=== PATIENT | female | born 1950 | race Two or more races ===

== ENCOUNTER 2020-04-17 12:26 | Outpatient (REF) | payer MEDICARE, SELFPAY ==
[2020-04-17 14:22] LABS: Estimated Average Glucose 163 mg/dL; Hemoglobin A1c % 7.3 %
[2020-04-17 14:49] LABS: Alanine Aminotransferase 45 U/L (0-31); Albumin Level 4.1 g/dL (3.5-5.0); Alkaline Phosphatase 57 U/L (39-117); Anion Gap 14 (12-20); Aspartate Amino Transferase 55 U/L (5-31); Bilirubin Total 0.9 mg/dL (0.0-1.0); Blood Urea Nitrogen 14 mg/dL (9-16); Calcium 8.8 mg/dL (8.4-10.2); Carbon Dioxide 28 mmol/L (22-29); Chloride 101 mmol/L (96-108); Estimated Glomerular Filt Rate > 60; Glucose Random 164 mg/dL (60-115); Potassium 4.7 mmol/l (3.3-5.1); Sodium 138 mmol/L (135-145); Total Protein 7.3 g/dL (6.5-8.0)
== END 2020-04-17 12:27 | disposition home or self-care (01) ==
LOC: HO.HMGCLDS 12:26
PROVIDERS: PCP Internal Medicine; Visit Provider Internal Medicine
DX: Z00.01 Encounter for general adult medical examination with abnormal findings (principal); I10 Essential (primary) hypertension; J45.41 Moderate persistent asthma with (acute) exacerbation; E11.9 Type 2 diabetes mellitus without complications; E78.2 Mixed hyperlipidemia
CPT/HCPCS: 80053; 83036

== ENCOUNTER → 2020-09-24 08:56 | Outpatient (BNVA) | payer MEDICARE, SELFPAY | PROVIDERS: PCP Internal Medicine; Visit Provider Nurse Practitioner Family | DX: I48.0 Paroxysmal atrial fibrillation (principal); I10 Essential (primary) hypertension; Z79.899 Other long term (current) drug therapy | CPT/HCPCS: 93005; 99212 ==

== ENCOUNTER 2020-10-29 09:29 | Outpatient (REF) | payer MEDICARE, SELFPAY ==
[2020-10-29 11:04] LABS: MANUAL DIFF FLAG NO
[2020-10-29 11:33] LABS: Basophils Percent Auto 0.6 % (0-2); Eosinophils Absolute Auto 0.1 X10*3/uL (0.0-0.4); Hematocrit 38.3 % (37-47); Hemoglobin 12.2 g/dl (12.0-16.0); Imm Gran Abs Auto 0.02 X10*3/uL (0.00-0.03); Imm Gran Pct Auto 0.4 % (0.0-0.4); Lymphocytes Absolute Auto 1.1 X10*3/uL (1.2-4.9); Lymphocytes Percent Auto 20.6 % (20-40); Mean Corpuscular HGB Conc 31.9 g/dl (31.0-35.0); Mean Corpuscular Hemoglobin 29.3 pg (27.0-33.0); Mean Corpuscular Volume 92.1 fL (80-98); Mean Platelet Volume 11.6 fL (9.4-12.3); Monocytes Absolute Auto 0.3 X10*3/uL (0.1-1.2); Monocytes Percent Auto 5.6 % (2-11); Neutrophils Absolute Auto 3.8 X10*3/uL (2.0-8.3); Neutrophils Percent Auto 70.8 % (45-73); Platelet Count 131 X10*3/uL (160-400); Red Blood Count 4.16 X10*6/uL (4.20-5.50); Red Cell Distribution Width 13.4 % (11.0-16.0); White Blood Count 5.4 X10*3/uL (4.8-10.8)
[2020-10-29 11:46] LABS: Alanine Aminotransferase 53 U/L (0-31); Alkaline Phosphatase 63 U/L (39-117); Anion Gap 15 (12-20); Aspartate Amino Transferase 71 U/L (5-31); Bilirubin Total 0.9 mg/dL (0.0-1.0); Blood Urea Nitrogen 15 mg/dL (9-16); Calcium 8.8 mg/dL (8.4-10.2); Carbon Dioxide 22 mmol/L (22-29); Chloride 103 mmol/L (96-108); Cholesterol 156 mg/dL; Estimated Glomerular Filt Rate > 60; Glucose Fasting 173 mg/dL (60-99); HDL Cholesterol 51 mg/dL; LDL Cholesterol Calculated 86 mg/dl; Potassium 4.4 mmol/L (3.3-5.1); Sodium 136 mmol/L (135-145); Total Protein 7.5 g/dL (6.5-8.0); Triglycerides 97 mg/dL
[2020-10-29 11:54] LABS: Estimated Average Glucose 194 mg/dL; Hemoglobin A1c % 8.4 %
[2020-10-29 12:03] LABS: Creatinine Urine 149.74 mg/dL; Microalbum/Creatinine Ratio Ur 8.6 ug/mg cr
[2020-10-29 12:08] LABS: TSH reflex Free T4 1.54 uIU/mL (0.32-4.0)
== END 2020-10-29 09:30 | disposition home or self-care (01) ==
LOC: HO.HMGCLDS 09:29
PROVIDERS: PCP Internal Medicine; Visit Provider Internal Medicine
DX: Z00.01 Encounter for general adult medical examination with abnormal findings (principal); E13.9 Other specified diabetes mellitus without complications; E78.9 Disorder of lipoprotein metabolism, unspecified; F41.1 Generalized anxiety disorder; I10 Essential (primary) hypertension; J45.909 Unspecified asthma, uncomplicated
CPT/HCPCS: 36415; 80053; 80061; 82043; 83036; 84443; 85025

== ENCOUNTER 2020-11-13 10:21 | Outpatient (REF) | payer MEDICARE, SELFPAY ==
--- NOTE | ~2020-11-13 | MM_ITS ---
EXAMINATION: MM SCREENING DIGITAL BREAST TOMOSYNTHESIS, BILATERAL CLINICAL INFORMATION: Screening. Asymptomatic. The lifetime risk of breast cancer based on the Tyrer-Cuzick Model is 3%. COMPARISON: Mammography: 06/22/2019, 04/21/2016 TECHNIQUE: Digital breast tomosynthesis is performed in both the craniocaudal and mediolateral oblique views along with computer-aided detection (CAD). Synthesized 2D images are generated from the tomosynthesis. Additional right MLO view is provided. FINDINGS: The breasts are almost entirely fatty (ACR BI-RADS breast composition Category a). There are no significant masses, abnormal calcifications, or other abnormalities. Background stromal and fibroglandular densities are stable. There are scattered benign punctate round and rim and some vascular calcifications again seen. Biopsy clip marker again noted mid upper outer right breast. The axilla are unremarkable. There are some fine deodorant artifact overlying the axilla. Skin contours are smooth. MM/MM tomosynthesis screening BI IMPRESSION: No mammographic evidence of malignancy. ASSESSMENT: BI-RADS 2: Benign RECOMMENDATION: Routine annual mammography screening. This patient's information was entered into a reminder system with a target due date for their next mammogram.
== END 2020-11-13 10:22 | disposition home or self-care (01) ==
LOC: HO.MAMMO 10:21
PROVIDERS: PCP Internal Medicine; Visit Provider Internal Medicine
DX: Z12.31 Encounter for screening mammogram for malignant neoplasm of breast (principal)
CPT/HCPCS: 77063; 77067

== ENCOUNTER 2021-03-03 10:38 | Outpatient (REF) | payer MEDICARE, SELFPAY ==
[2021-03-03 15:09] LABS: Ferritin 257 ng/mL (10-250)
[2021-03-03 15:13] LABS: C Reactive Protein 0.81 mg/dL (< or = 0.50)
[2021-03-04 04:51] LABS: HBS Num1 0.46 mIU/mL (0-7.99); HBc Num1 0.08 S/CO (0.00-0.79); Hepatitis B Core Antibody Nonreactive (Nonreactive); ~HepC Num1 0.12 S/CO (0.00-0.79); ~Hepatitis B Surface Antibody NONREACTIVE (Nonreactive); ~Hepatitis C Antibody Nonreactive (Nonreactive)
[2021-03-04 04:57] LABS: HBsAGNum1 0.15 S/CO (0.00-0.99); Hepatitis B Surface Antigen Negative (Negative)
[2021-03-04 13:36] LABS: Ceruloplasmin 32 mg/dL (18-53)
[2021-03-05 08:27] LABS: Hepatitis A Antibody IgM 0.93 Index (0-0.79); ~Hepatitis A Antibody IgM GRAYZONE (Nonreactive)
[2021-03-05 12:22] LABS: Alpha Fetoprotein 5.1 ng/mL
[2021-03-07 11:51] LABS: Mitochondrial Antibodies NEGATIVE (NEGATIVE); Smooth Muscle Antibody <20 U (<20)
[2021-03-11 19:07] LABS: FIB-ALT 45 U/L (6-29); FIB-Alpha-2-Macroglobulin 339 mg/dL (106-279); FIB-Apolipoprotein A1 158 mg/dL (101-198); FIB-GGT 92 U/L (3-65); FIB-Haptoglobin 207 mg/dL (43-212); FIB-Total Bilirubin 0.8 mg/dL (0.2-1.2); Liver Fibrosis Score 0.63; Liver Fibrosis Stage F3; Nec Inflam Act Grade A1-A2; Nec Inflam Act Score 0.36
== END 2021-03-03 10:39 | disposition home or self-care (01) ==
LOC: HO.LAB 10:38
PROVIDERS: PCP Internal Medicine; Referring Provider Internal Medicine; Visit Provider Nurse Practitioner Family
DX: R10.11 Right upper quadrant pain (principal); R79.89 Other specified abnormal findings of blood chemistry; R74.8 Abnormal levels of other serum enzymes; K58.1 Irritable bowel syndrome with constipation
CPT/HCPCS: 36415; 81596; 82105; 82390; 82728; 86140; 86255; 86256; 86704; 86706; 86709; 86803; 87340; 99202

== ENCOUNTER → 2021-03-20 12:44 | Outpatient (BNVA) | payer MEDICARE, SELFPAY | PROVIDERS: PCP Internal Medicine; Referring Provider Internal Medicine; Visit Provider Nurse Practitioner Family | DX: Z01.810 Encounter for preprocedural cardiovascular examination (principal); I48.0 Paroxysmal atrial fibrillation; I10 Essential (primary) hypertension | CPT/HCPCS: 93005; 99212 ==

== ENCOUNTER → 2021-03-31 14:22 | Outpatient (REF) | payer MEDICARE, SELFPAY ==
--- NOTE | 2021-03-31 14:24 | HM_ITS ---
Total monitoring time 3 days. Underlying rhythm sinus. Minimum heart rate 34/minute. Maximum 115/minute. Average 72/Min. Most rates between 60-100/Min. About 8.7% of time, underlying rhythm was atrial fibrillation. Longest episode 4 hours and 6 minutes. No pauses or AV blocks. Rare supraventricular ectopy. Rare ventricular ectopy with a burden of only 0.17% with no couplets or runs. Patient reports symptoms including shortness of breath, palpitations possibly from supraventricular/ventricular ectopy. MTDD
== END ==
LOC: HO.CARD 14:22
PROVIDERS: PCP Internal Medicine; Visit Provider Nurse Practitioner Family
DX: I48.0 Paroxysmal atrial fibrillation (principal)
CPT/HCPCS: 93242

== ENCOUNTER 2021-04-10 10:18 | Day surgery (SDC) | payer MEDICARE, SELFPAY ==
[2021-04-04 10:00] VITALS: BMI 37.5
--- NOTE | 2021-04-09 12:29 | HO.ANESPROP2 ---
Documented by User: Tierra Shi NP 04/09/21 12:32 HPI - Anesthesia Eval Consult details Narrative: 70yo F for Colonoscopy Cardiac cleared at low risk Xarelto for afib PMFSH Active Problems Active Problems: All Active Problems (Updated 04/04/21 @ 14:47 by Johny Adorno MD) Elevated ferritin (Acute) Encounter for general adult medical examination with abnormal findings (Acute) Colon cancer screening (Acute) Preop cardiovascular exam (Acute) Elevated liver enzymes (Acute) Paroxysmal A-fib (Acute) Asthma (Acute) Anxiety, generalized (Acute) Lipid disorder (Acute) Hypertension, essential (Acute) Diabetes 1.5, managed as type 2 (Acute) Past Medical History Medical History Anxiety, generalized Asthma Diabetes 1.5, managed as type 2 Elevated liver enzymes Hypertension, essential Lipid disorder Osteoporosis Paroxysmal A-fib Family History Family History Father No problems noted. Mother Ovarian cancer Colon cancer Surgical History Surgical History History of section History of colonoscopy History of liver biopsy Hx of breast biopsy Hx of cholecystectomy Social History Social History Housing: House Alcohol intake: never Patient Tobacco Use Status: Never used Tobacco Are you DNR?: No Advance Directives: No Advance Directives Information Provided: No (mailed info) Advance Directives on File: No Recently lost weight without trying: No Current occupational status: employed Meds Allergies Allergy/AdvReac Type Severity Reaction Status Date / Time vancomycin [VANCOMYCIN] Allergy Intermediate HIVES, Verified 04/04/21 09:57 ITCHING DEANNA Inhibitors Allergy Mild Cough Verified 04/04/21 09:57 lisinopril [LISINOPRIL] Allergy Mild COUGH Verified 04/04/21 09:57 Home Medications Medication Instructions Recorded Confirmed Last Taken Type pravastatin 20 mg tablet 20 mg PO DAILY 04/19/20 04/04/21 Unknown History cholecalciferol (vitamin D3) 25 25 mcg PO DAILY 04/04/21 04/04/21 Unknown History mcg (1,000 unit) capsule (Vitamin D3) Exam Exam Date and Time: April 09, 2021 1229 Height,Weight and Vital Signs: Height 5 ft 1 in Weight 90.265 kg Narrative Narrative: EKG 03/2021 SR, 1st degree avb, low voltage QRS, q in V3, same as prior EKG, could be related to body habitus, has good R wave progression otherwise. Rate 62 ECHO 201811/17/2018 shows EF 60-65%, grade 1 diastolic dysfunction Assessment and Plan Assessment Anesthesia Assessment: Chart Reviewed Documented by User: Dangelo Hsu MD 04/10/21 11:47 PMFSH Past Medical History Medical History Anxiety, generalized Asthma Diabetes 1.5, managed as type 2 Elevated liver enzymes Hypertension, essential Lipid disorder Osteoporosis Paroxysmal A-fib Family History Family History Father No problems noted. Mother Ovarian cancer Colon cancer Family history of problems with anesthesia: No Surgical History Surgical History History of section History of colonoscopy History of liver biopsy Hx of breast biopsy Hx of cholecystectomy History of Problems with Anesthesia: No Social History Social History Housing: House Alcohol intake: never Patient Tobacco Use Status: Never used Tobacco Are you DNR?: No Advance Directives: No Advance Directives Information Provided: No (mailed info) Advance Directives on File: No Recently lost weight without trying: No Current occupational status: employed Meds Allergies Allergy/AdvReac Type Severity Reaction Status Date / Time vancomycin [VANCOMYCIN] Allergy Intermediate HIVES, Verified 04/04/21 09:57 ITCHING DEANNA Inhibitors Allergy Mild Cough Verified 04/04/21 09:57 lisinopril [LISINOPRIL] Allergy Mild COUGH Verified 04/04/21 09:57 Home Medications Medication Instructions Recorded Confirmed Last Taken Type pravastatin 20 mg tablet 20 mg PO DAILY 04/19/20 04/04/21 Unknown History cholecalciferol (vitamin D3) 25 25 mcg PO DAILY 04/04/21 04/04/21 Unknown History mcg (1,000 unit) capsule (Vitamin D3) Exam Airway Mallampati Class: II TM Dist: >3cm Neck ROM: Full Denture: Upper Assessment and Plan Assessment Anesthesia Assessment: Anesthesia Plan Discussed Final Anesthetic Review Family History of Problems with Anesthesia: No History of Problems with Anesthesia: No NPO: Yes ASA Class: III Final Preanesthetic Review: No Changes in Pt Med Stat, Meds/Allgs Chart Reviewed, Consent Obtained/Reviewed and Anes Risks/Benef Reviewed Patient Risk: Intermediate Procedure Risk: Low Anesthetic Plan Anesthetic Plan: MAC: Disposition: Standard PACU
[2021-04-10 11:08] LABS: Glucose, Whole Blood 95 mg/dL (60-115)
[2021-04-10 11:14] VITALS: BP 108/49; PULSE 63; RESP 18; TEMP 36.8; O2SAT 97
[2021-04-10] MEDS: Lactated Ringers 1,000 ML 100 ML IVCONT (11:19)
--- NOTE | 2021-04-10 11:59 | MHC.SHP ---
Pre-Procedural Eval Section A Date of Service: 04/10/21 Section B Chief Complaint: Screening Relevant Family History (Specify if Yes): No Relevant Social History: None Present Medications: see Short Stay Collaborative assessment Medical History: Significant History (Anxiety, generalized Asthma Diabetes 1.5, managed as type 2 Elevated liver enzymes Hypertension, essential Lipid disorder Osteoporosis Paroxysmal A-fib) History of Previous Operations: Relevant previous surgery/procedure and date(s) (History of section History of colonoscopy History of liver biopsy Hx of breast biopsy Hx of cholecystectomy) Allergies: Allergies Allergy/AdvReac Type Severity Reaction Status Date / Time vancomycin [VANCOMYCIN] Allergy Intermediate HIVES, Verified 04/04/21 09:57 ITCHING DEANNA Inhibitors Allergy Mild Cough Verified 04/04/21 09:57 lisinopril [LISINOPRIL] Allergy Mild COUGH Verified 04/04/21 09:57 Review of Systems Sugical H&P ROS: Negative: Constitution, Cardiovascular, Respiratory, Neurological, Psychiatric, Hem-Onc, Allergic/Immunologic, Gastrointestinal, Genitourinary, Musculoskeletal, Integumentary, Endocrine and Eyes/Ears/Nose/Throat Exam Surgical H&P Exam: Normal: HEENT, Normal: Heart, Normal: Lungs, Normal: Extremities, Normal: Abdomen, Normal: Skin and Normal: Neurological Plan Diagnosis/Plan: Unchanged I have reviewed the history and physical and performed a pertinent physical examination on my patient. No changes have occurred unless specified.
--- NOTE | 2021-04-10 12:31 | PM.OP ---
Brief Operative Note Date of Service: 04/10/21 Pre-op diagnosis: screening colonoscopy Post-op diagnosis: same Procedure: see op note Surgeon: José Antonio Lowe MD Anesthesia: MAC Was an Rehab Director Occupational Therapist used for this Procedure?: No Estimated blood loss (mL): 0 Condition: stable Disposition: PACU
--- NOTE | 2021-04-10 12:32 | W.PM.OPN ---
Operative Note Operative Note Date of Service: 04/10/21 Narrative: Operative Information Procedure Description: Colonoscopy COLONOSCOPY Instrument: Olympus variable stiffness pediatric scope 190L Colonoscopy Monitoring: Vital signs and clinical assessment, continuous EKG monitoring, Pulse oximetry, Carbon Dioxide monitoring and blood pressure monitoring were done throughout the procedure. Colon withdrawal time was 18 minutes. Procedure: The patient was placed in the left lateral decubitis position and pre-procedure medications were administered. After a digital rectal examination of the ano-rectum, the video colonoscope was inserted into the rectum and advanced through the colon to the cecum/TI. The colonoscope was slowly withdrawn in a retrograde panoramic fashion and the colon mucosa was carefully examined including a retroflexed view of the rectum. Findings and interventions are described below. Procedure Difficulty: easy Findings: Terminal Ileum-normal Fay diverticulosis Cecum: 10 mm sessile polyp removed with cold snare Ascending Colon: x4 sessile polyps noted 8-10 mm, x2 removed with forceps and x 2 removed with cold snare In distal ascenign colon 10-15 mm lipoma noted Transverse Colon -normal Descending Colon:normal Sigmoid Colon: x 2 sessile polyps noted 10-12 mm, one removed with forceps and the other with cold snare, mucosal hypertrophy noted Rectum: Retroflexion with small internal hemorrhoids, grade I Anorectum - normal Colon preparation: [place] Bowel Preparation Scale Right colon; 3 Transverse colon: 3 Left colon; 2 (0 = Unprepared colon segment with mucosa not seen due to solid stool that cannot be cleared. 1 = Portion of mucosa of the colon segment seen, but other areas of the colon segment not well seen due to staining, residual stool and/or opaque liquid. 2 = Minor amount of residual staining, small fragments of stool and/or opaque liquid, but mucosa of colon segment seen well. 3 = Entire mucosa of colon segment seen well with no residual staining, small fragments of stool or opaque liquid) Impression and Post Procedure Diagnosis: polyps internal hemorrhoids diverticular disease lipoma Plan: High fiber diet leaflet Avoid straining at stool, epsom salts and sitz bath, anusol supps or cream Repeat Colonoscopy in 3-4 years or earlier if clinically indicated can restart xarelto in 2 days Above findings were reviewed with the patient and relevant handouts were provided if indicated.
[2021-04-10 13:24] VITALS: BP 91/35; PULSE 61; RESP 18; TEMP 36.7; O2SAT 98
[2021-04-10 13:39] VITALS: BP 116/42; PULSE 60; RESP 18; TEMP 36.6; O2SAT 96
== END 2021-04-10 14:17 | disposition home or self-care (01) ==
PROVIDERS: PCP Internal Medicine; Visit Provider Internal Medicine Gastroenterology
PROC: 0DJD8ZZ Inspection of Lower Intestinal Tract, Via Natural or Artificial Opening Endoscopic (ICD-10-PCS; CPT 45378; principal; 2021-04-10 11:50)
DX: Z12.11 Encounter for screening for malignant neoplasm of colon (principal); D12.0 Benign neoplasm of cecum; D12.2 Benign neoplasm of ascending colon; D12.5 Benign neoplasm of sigmoid colon; K57.30 Diverticulosis of large intestine without perforation or abscess without bleeding; K64.0 First degree hemorrhoids; D17.5 Benign lipomatous neoplasm of intra-abdominal organs; I10 Essential (primary) hypertension; J45.909 Unspecified asthma, uncomplicated; I48.0 Paroxysmal atrial fibrillation; E13.9 Other specified diabetes mellitus without complications; Z79.01 Long term (current) use of anticoagulants; Z79.84 Long term (current) use of oral hypoglycemic drugs; Z79.899 Other long term (current) drug therapy; Z79.51 Long term (current) use of inhaled steroids; Z88.1 Allergy status to other antibiotic agents; Z88.8 Allergy status to other drugs, medicaments and biological substances
CPT/HCPCS: 45385; 45380; 82947; 88305

== ENCOUNTER 2021-04-17 08:00 | Outpatient (REF) | payer MEDICARE, SELFPAY ==
[2021-04-17 11:42] LABS: Estimated Average Glucose 148 mg/dL; Hemoglobin A1c % 6.8 %
[2021-04-17 11:45] LABS: Alanine Aminotransferase 47 U/L (0-31); Alkaline Phosphatase 70 U/L (39-117); Anion Gap 14 (12-20); Aspartate Amino Transferase 56 U/L (5-31); Bilirubin Total 0.6 mg/dL (0.0-1.0); Blood Urea Nitrogen 13 mg/dL (9-16); Carbon Dioxide 27 mmol/L (22-29); Chloride 103 mmol/L (96-108); Cholesterol 135 mg/dL; Estimated Glomerular Filt Rate > 60; Glucose Fasting 148 mg/dL (60-99); HDL Cholesterol 43 mg/dL; LDL Cholesterol Calculated 71 mg/dl; Potassium 4.9 mmol/L (3.3-5.1); Sodium 139 mmol/L (135-145); Total Protein 7.3 g/dL (6.5-8.0); Triglycerides 105 mg/dL
[2021-04-17 12:02] LABS: Microalbum/Creatinine Ratio Ur 8.2 ug/mg cr
[2021-04-17 12:06] LABS: Ferritin 213 ng/mL (10-250)
== END 2021-04-17 08:01 | disposition home or self-care (01) ==
LOC: HO.HMGCLDS 08:00
PROVIDERS: PCP Internal Medicine; Visit Provider Internal Medicine
DX: E13.9 Other specified diabetes mellitus without complications (principal); E78.9 Disorder of lipoprotein metabolism, unspecified; F41.1 Generalized anxiety disorder; I10 Essential (primary) hypertension; J45.909 Unspecified asthma, uncomplicated; R74.8 Abnormal levels of other serum enzymes; R79.89 Other specified abnormal findings of blood chemistry
CPT/HCPCS: 36415; 80048; 80053; 80061; 81256; 82043; 82728; 83036

== ENCOUNTER → 2021-04-25 11:51 | Outpatient (BNVA) | payer MEDICARE, SELFPAY | PROVIDERS: PCP Psychiatry & Neurology Neurology; Visit Provider Nurse Practitioner Family | DX: K59.04 Chronic idiopathic constipation (principal); D36.9 Benign neoplasm, unspecified site; Z98.890 Other specified postprocedural states | CPT/HCPCS: Q3014 ==

== ENCOUNTER → 2021-08-21 15:28 | Outpatient (BNVA) | payer MEDICARE, SELFPAY | PROVIDERS: PCP Internal Medicine; Visit Provider Nurse Practitioner Family | DX: K59.04 Chronic idiopathic constipation (principal); K74.60 Unspecified cirrhosis of liver; D12.6 Benign neoplasm of colon, unspecified; E11.9 Type 2 diabetes mellitus without complications; I10 Essential (primary) hypertension; I48.0 Paroxysmal atrial fibrillation; M81.0 Age-related osteoporosis without current pathological fracture; F41.1 Generalized anxiety disorder; Z90.49 Acquired absence of other specified parts of digestive tract; Z88.1 Allergy status to other antibiotic agents; Z88.8 Allergy status to other drugs, medicaments and biological substances | CPT/HCPCS: 99212 ==

== ENCOUNTER → 2021-09-25 09:49 | Outpatient (BNVA) | payer MEDICARE, SELFPAY | PROVIDERS: PCP Internal Medicine; Referring Provider Internal Medicine; Visit Provider Internal Medicine Cardiovascular Disease | DX: I48.0 Paroxysmal atrial fibrillation (principal); I20.8 Other forms of angina pectoris; Z79.01 Long term (current) use of anticoagulants | CPT/HCPCS: 93005; 99212 ==

== ENCOUNTER → 2021-10-07 08:05 | Outpatient (REF) | payer MEDICARE, SELFPAY ==
--- NOTE | ~2021-10-07 | NM_ITS ---
Myocardial perfusion study Indication: Epigastric discomfort evaluate for myocardial ischemia Technique: The patient was brought in for a Lexiscan perfusion study on 10/07/2021. Patient performed low-level exercise and was injected 0.4 mg of Lexiscan intravenously. Within a minute of injection, 35 mCi of sestamibi was given intravenously. Images were obtained using the SPECT gamma camera interlaced with the gating device. Images were obtained in supine position. Resting perfusion study was performed on 10/09/2021. Patient was administered 35 mCi of sestamibi intravenously at rest. Images were then obtained in supine position. Images obtained with and without CT attenuation. Total DLP 130 mGy-cm. Images were processed with the software and compared side to side in short axis, horizontal long axis and vertical long axis views. Findings: The stress perfusion study showed non attenuated images show overall normal perfusion of all segments of LV myocardium with minimally reduced uptake in the basal inferior wall of the LV myocardium. Attenuation corrected images show minimally reduced uptake in the apex of the LV myocardium.. The gated study shows normal LV systolic function with calculated LVEF of 60%. LV cavity is normal in size. The gated study shows normal systolic wall thickening and contraction of segments. Resting study shows no change in perfusion pattern compared to stress perfusion study. Gating at rest reveals normal systolic wall motion with ejection fraction at 63%. The findings are consistent with normal myocardial perfusion. NM/NM branden perf SPECT rest & str Impression: 1. Myocardial perfusion imaging study shows normal myocardial perfusion 2. Gated LVEF is 60% 3. Transient ischemic dilatation not present EKG is nondiagnostic for ischemia
--- NOTE | 2021-10-07 08:07 | CA_ITS ---
Acquisition Time: 2021-10-07 08:12:13 Total Exercise Time: 00:02:00 Test Indications: AFIB, SOB Medications: SEE CHART Protocol: LEXISCAN Max HR: 085 BPM 57% of Pred: 148 BPM Max BP: 128/078 mmHG Max Work Load: 1.0 METS Pharmacological stress test with Lexiscan injection while sitting and kicking her legs for 3 min, without anginal symptoms, with isolated PACs, PVCs and brief sinus bradycardia noted ( no heart blocks identified, nonconducted PACs not excluded), with normotensive response to injection, with nondiagnostic EKG for ischemia. In recovery she was treated with Aminophylliine 75mg IVP to reverse Lexiscan. Nuclear images pending. Test reviewed with Dr Sutton. Referred By: Geoff Serra Overread By: ADELIA RUBI
== END ==
LOC: HO.CARD 08:05
PROVIDERS: PCP Internal Medicine; Visit Provider Internal Medicine Cardiovascular Disease
DX: I20.8 Other forms of angina pectoris (principal); E13.9 Other specified diabetes mellitus without complications; I10 Essential (primary) hypertension
CPT/HCPCS: 78452; 93017; A9500; J0280; J2785

== ENCOUNTER 2021-10-10 08:00 | Outpatient (REF) | payer MEDICARE, SELFPAY ==
[2021-10-10 11:10] LABS: MANUAL DIFF FLAG NO
[2021-10-10 11:32] LABS: Basophils Percent Auto 0.8 % (0-2); Eosinophils Absolute Auto 0.2 X10*3/uL (0.0-0.4); Eosinophils Percent Auto 3.3 % (0-4); Hematocrit 39.7 % (37.0-47.0); Hemoglobin 12.9 g/dl (12.0-16.0); Imm Gran Abs Auto 0.03 X10*3/uL (0.00-0.03); Imm Gran Pct Auto 0.6 % (0.0-0.4); Lymphocytes Absolute Auto 0.9 X10*3/uL (1.2-4.9); Lymphocytes Percent Auto 17.1 % (20-40); Mean Corpuscular HGB Conc 32.5 g/dl (31.0-35.0); Mean Corpuscular Hemoglobin 29.9 pg (27.0-33.0); Mean Corpuscular Volume 92.1 fL (80.0-98.0); Monocytes Absolute Auto 0.4 X10*3/uL (0.1-1.2); Monocytes Percent Auto 6.9 % (2-11); Neutrophils Absolute Auto 3.6 x10*3/uL (2.0-8.3); Neutrophils Percent Auto 71.3 % (45-73); Platelet Count 149 X10*3/uL (160-400); Red Blood Count 4.31 X10*6/uL (4.20-5.50); Red Cell Distribution Width 13.8 % (11.0-16.0); White Blood Count 5.1 X10*3/uL (4.8-10.8)
[2021-10-10 11:38] LABS: Estimated Average Glucose 171 mg/dL; Hemoglobin A1c % 7.6 %
[2021-10-10 11:57] LABS: Alanine Aminotransferase 45 U/L (0-31); Albumin Level 3.9 g/dL (3.5-5.0); Alkaline Phosphatase 71 U/L (39-117); Anion Gap 12 (12-20); Aspartate Amino Transferase 62 U/L (5-31); Bilirubin Direct 0.4 mg/dL (0.0-0.5); Blood Urea Nitrogen 13 mg/dL (9-16); Calcium 9.4 mg/dL (8.4-10.2); Carbon Dioxide 28 mmol/L (22-29); Chloride 101 mmol/L (96-108); Estimated Glomerular Filt Rate > 60; Glucose Random 182 mg/dL (60-115); Potassium 4.6 mmol/L (3.3-5.1); Sodium 136 mmol/L (135-145); Total Protein 7.2 g/dL (6.5-8.0)
[2021-10-10 12:06] LABS: Ferritin 243 ng/mL (10-250)
[2021-10-10 12:27] LABS: Creatinine Urine 177.67 mg/dL; Microalbum/Creatinine Ratio Ur 8.4 ug/mg cr
[2021-10-12 06:16] LABS: LDL Cholesterol Direct 88 mg/dL (<100)
== END 2021-10-10 08:01 | disposition home or self-care (01) ==
LOC: HO.HMGCLDS 08:00
PROVIDERS: Visit Provider Internal Medicine
DX: R79.89 Other specified abnormal findings of blood chemistry (principal); I48.0 Paroxysmal atrial fibrillation; F41.1 Generalized anxiety disorder; E78.9 Disorder of lipoprotein metabolism, unspecified; I10 Essential (primary) hypertension; E13.9 Other specified diabetes mellitus without complications; J45.40 Moderate persistent asthma, uncomplicated; Z12.11 Encounter for screening for malignant neoplasm of colon
CPT/HCPCS: 36415; 80053; 82043; 82248; 82728; 83036; 83721; 85025

== ENCOUNTER → 2021-11-13 07:07 | Outpatient (REF) | payer MEDICARE, SELFPAY ==
--- NOTE | 2021-11-13 07:10 | CA_ITS ---
Transthoracic Echocardiogram Patient (Last, First, Middle): Kellie Villanueva T Gender: Female Date of : 1950 Age: 71 Procedure Date: 11/13/2021 Procedure Type: Transthoracic Echocardiogram Location: OP Height: 152.4 cm Weight: 91.17 kg BSA: 1.87 m2 Heart Rate: bpm BP: 140 / 74 mmHg Medical Reimbursement Manager: ELADIA Referring MD: Geoff Serra MD Preventive Maintenance Engineer: Geoff Serra MD Symptoms: I48.0 - Paroxysmal atrial fibrillation Study Quality: Adequate ECG Rhythm: Sinus Conclusions: - 1. Normal LV systolic function with impaired relaxation filling pattern 2. Normal cardiac valvular Doppler 3. No gross pericardial effusion Findings Left Ventricle Normal left ventricular size, thickness, and systolic function. The visually estimated ejection fraction is between 60-65%. Spectral Doppler is indicative of an impaired relaxation filling pattern. E/E prime ratio is between 8 and 15 consistent with indeterminate filling pressures. Right Ventricle Normal right ventricular cavity size and systolic function. Atria The left atrium is normal in size. Interatrial shunt cannot be excluded. The right atrium is normal in size. Aortic Valve Normal aortic valve structure and function. There is no aortic valve stenosis. There is no aortic valve regurgitation. Mitral Valve Likely normal mitral valve structure and function. There is trace mitral valve regurgitation. There is no mitral valve stenosis. Pulmonic Valve The pulmonic valve was not well visualized. Tricuspid Valve Tricuspid regurgitation envelope is inadequate for calculation of right ventricular systolic pressure. Normal right atrial pressure. Great Vessels All visible segments of the aorta are normal in size. The pulmonary artery was not well visualized. Venous The inferior vena cava is normal in size and collapses greater than 50% with inspiration. Pericardium/Pleural There is no evidence of pericardial effusion. Prior Study Comparison No significant change compared to prior study dated: 11/17/2018. Measurements 2D Linear Measurements IVSd: 1.14 0.6-0.9/0.6-1.0 cm LVIDd: 4.32 3.9-5.3/4.2-5.9 cm LVIDd Index: 2.31 2.4-3.2/2.2-3.1 cm/m2 LVIDs: 2.34 2.0-3.6 cm LVPWd: 1.06 0.7-1.1 cm LA Diam: 4.00 2.7-3.8/3.0-4.0 cm LAIDs Index: 2.14 1.5-2.3 cm/m2 LV Mass: 204.41 67-162/88-224 g LV Mass Index: 109.31 43-95/49-115 g/m2 LVOT Diam: 2.20 3.0+(-)1.3 cm 2D Systolic Function EF 4C: 64.70 >55% EF 2C: 64.80 >55% EF BiP: 66.80 >55% Mitral Valve MV Pk E: 0.65 MV PK A: 0.91 MV Decel Time: 287.00 E/A: 0.70 E'Lateral: 7.40 E'Medial: 6.09 E/E' Med: 10.70 E/E' Lat: 8.80 PHT: 84.00 MVA PHT: 2.62 Decel Boyle: 2.27 Aortic Valve AoV Pk Dov: 1.39 AoV Mn Dov: 0.98 AoV VTI: 0.36 AoV Pk Grad: 8.00 Aov Mn Grad: 4.00 JAGJIT Cont.VTI: 2.75 LVOT LVOT Pk Dov: 0.89 LVOT Mn Dov: 0.65 LVOT VTI: 0.26 LVOT Pk Grad: 3.00 LVOT Mn Grad: 2.00 LVOT Diam: 2.20 LVOT Area: 3.80 Diastolic Function MV Pk E: 0.65 MV Pk A: 0.91 E/A: 0.70 E'Medial: 6.09 E/E' Med: 10.70 E' Laterial: 7.40 E/E' Lat: 8.80 Tricuspid Valve RA Press: 3.00 Great Vessels Aorta Sinus of Valsalva: 3.36 2.0-3.[address] [place]: 2.62 1.7-3.4 cm Ao Asc: 3.30 2.1-3.4 cm Updated in Other Vendor System with Status of Final Geoff Serra MD electronically signed on 11/14/2021 3:17:10 PM with status of Final
== END ==
LOC: HO.CARD 07:07
PROVIDERS: Visit Provider Internal Medicine Cardiovascular Disease
DX: I48.0 Paroxysmal atrial fibrillation (principal); I20.8 Other forms of angina pectoris
CPT/HCPCS: 93306

== ENCOUNTER → 2021-11-26 14:56 | Outpatient (BNVA) | payer MEDICARE, SELFPAY | PROVIDERS: PCP Internal Medicine; Referring Provider Internal Medicine; Visit Provider Nurse Practitioner Family | DX: R07.89 Other chest pain (principal); I48.0 Paroxysmal atrial fibrillation; I10 Essential (primary) hypertension; Z79.01 Long term (current) use of anticoagulants; Z79.899 Other long term (current) drug therapy | CPT/HCPCS: 99212 ==

== ENCOUNTER → 2022-02-23 16:14 | Outpatient (BNVA) | payer MEDICARE, SELFPAY | PROVIDERS: PCP Internal Medicine; Visit Provider Nurse Practitioner Family | DX: R79.89 Other specified abnormal findings of blood chemistry (principal); K59.04 Chronic idiopathic constipation | CPT/HCPCS: 99212 ==

== ENCOUNTER 2022-03-13 13:46 | Outpatient (REF) | payer MEDICARE, SELFPAY ==
--- NOTE | ~2022-03-13 | US_ITS ---
EXAMINATION: US VENOUS ULTRASOUND WITH DOPPLER LOWER EXTREMITY, LEFT CLINICAL INFORMATION: Pain and swelling COMPARISON: Duplex Doppler left lower extremity 03/27/2019 TECHNIQUE: Ultrasound of the deep veins is performed from the hip to the calf with compression sonography and color and pulse Doppler assessment. Spectral analysis with color-flow imaging is performed. FINDINGS: There is normal venous compression and respiratory variation and augmented flow. The visualized common femoral vein, superficial femoral vein, profunda femoral vein, popliteal vein, and the trifurcation region shows no evidence of deep venous thrombosis. There is no significant popliteal fossa cyst. Focused ultrasound performed in the area of swelling and redness at the mid calf. There is subcutaneous edema. No focal fluid collection or abscess. There are subcutaneous varices at the mid calf. If the patient's symptoms persist, followup ultrasound in 5 days 7 days might be of value to exclude proximal propagation from a non-visualized calf vein. US/US venous duplex LE IMPRESSION: No DVT demonstrated in the left lower extremity.
== END 2022-03-13 13:47 | disposition home or self-care (01) ==
LOC: HO.HMGCX 13:46
PROVIDERS: PCP Internal Medicine
DX: M79.662 Pain in left lower leg (principal)
CPT/HCPCS: 93971

== ENCOUNTER 2022-03-31 11:32 | Outpatient (REF) | payer MEDICARE, SELFPAY ==
[2022-03-31 14:26] LABS: Hematocrit 38.1 % (37.0-47.0); Hemoglobin 12.4 g/dl (12.0-16.0)
[2022-03-31 14:47] LABS: Estimated Average Glucose 151 mg/dL; Hemoglobin A1c % 6.9 %
[2022-03-31 14:48] LABS: Alanine Aminotransferase 32 U/L (0-31); Alkaline Phosphatase 70 U/L (39-117); Anion Gap 16 (12-20); Aspartate Amino Transferase 44 U/L (5-31); Bilirubin Direct 0.3 mg/dL (0.0-0.5); Bilirubin Total 0.8 mg/dL (0.0-1.0); Blood Urea Nitrogen 15 mg/dL (9-16); Carbon Dioxide 26 mmol/L (22-29); Chloride 104 mmol/L (96-108); Estimated Glomerular Filt Rate > 60; Glucose Random 155 mg/dL (60-115); Potassium 4.1 mmol/L (3.3-5.1); Sodium 142 mmol/L (135-145); Total Protein 7.2 g/dL (6.5-8.0)
[2022-03-31 15:09] LABS: Ferritin 223 ng/mL (10-250)
[2022-04-02 11:56] LABS: Alpha Fetoprotein 5.2 ng/mL
[2022-04-02 15:21] LABS: Ceruloplasmin 26 mg/dL (18-53)
== END 2022-03-31 11:33 | disposition home or self-care (01) ==
LOC: HO.HMGCLDS 11:32
PROVIDERS: Absent Provider Nurse Practitioner Family; PCP Internal Medicine; Visit Provider Internal Medicine
DX: E66.09 Other obesity due to excess calories (principal); E78.9 Disorder of lipoprotein metabolism, unspecified; F41.1 Generalized anxiety disorder; I10 Essential (primary) hypertension; I48.0 Paroxysmal atrial fibrillation; J45.40 Moderate persistent asthma, uncomplicated; R74.8 Abnormal levels of other serum enzymes; R10.9 Unspecified abdominal pain; R79.89 Other specified abnormal findings of blood chemistry; E13.9 Other specified diabetes mellitus without complications
CPT/HCPCS: 36415; 80053; 82043; 82105; 82248; 82390; 82728; 83036; 85014; 85018

== ENCOUNTER 2022-06-30 09:36 | Outpatient (REF) | payer MEDICARE, SELFPAY ==
--- NOTE | ~2022-06-30 | US_ITS ---
EXAMINATION: US COMPLETE ABDOMEN WITH LIVER ELASTOGRAPHY CLINICAL INFORMATION: Abnormal LFTs. COMPARISON: None. TECHNIQUE: Real-time imaging of the abdominal viscera. Noninvasive ultrasound liver fibrosis assessment is performed using Sunday ElastPQ point quantification shear wave elastography (2D-SWE) with a C5-2 MHz transducer. Multiple elastography samples are obtained. FINDINGS: PANCREAS: Normal. The visualized pancreatic head and body are normal in appearance. The remainder of the pancreas is obscured from visualization by the overlying bowel gas. ABDOMINAL AORTA: The proximal, middle, and distal aortic segments are normal in caliber. INFERIOR VENA CAVA: Visualized portions are normal. LIVER: The liver demonstrates normal size, contour and increased echogenicity. No focal lesion or intrahepatic biliary duct dilatation. The right lobe measures 20.9 cm in length. The left lobe measures 14.6 cm in length. Portal flow is hepatopedal. Shear wave liver elastography median stiffness is 1.49 m/s (reference: normal median stiffness is 1.3 m/s or less). IQR/median stiffness to assess sampling precision is 0.15 (reference: good quality data set is IQR/median stiffness of 0.15 or less). GALLBLADDER: Normal. The gallbladder is physiologically distended without evidence of stones, sludge, polyps, wall thickening or pericholecystic fluid. COMMON BILE DUCT: Normal in caliber measuring 0.21 cm in diameter. RIGHT KIDNEY: Normal. No hydronephrosis. No renal calculi or focal parenchymal lesions. The kidney measures 10.6 cm in maximum dimension. LEFT KIDNEY: Normal. No hydronephrosis. No renal calculi or focal parenchymal lesions. The kidney measures 10.8 cm in maximum dimension. SPLEEN: Normal. The spleen measures 16.8 cm in maximum dimension. There is a small splenule measuring 2.0 x 1.2 x 1.2 cm. FREE FLUID: None. US/US abdomen comp w elastography IMPRESSION: Hepatic steatosis without focal lesion. The rest of the abdominal ultrasound is unremarkable. Liver elastography: Median liver stiffness 1.49 m/s corresponding cACLD (ruled out). REFERENCE: Society of Radiologists in Ultrasound Liver Stiffness Thresholds (2019): LIVER STIFFNESS THRESHOLDS: *Liver Stiffness equal or less than 1.3 m/s: High probability of being normal. *Liver Stiffness less than 1.7 m/s: In the absence of other known clinical signs, rules out compensated advanced chronic liver disease. *Liver Stiffness 1.7-2.1 m/s: Suggestive of compensated advanced chronic liver disease but need further test for confirmation. *Liver Stiffness over 2.1 m/s: Rules in compensated advanced chronic liver disease. *Liver Stiffness over 2.4 m/s: Suggestive of clinically significant portal hypertension. QUALITY OF DATA SET: *IQR/Median value equal or less than 0.15 implies a quality data set. *IQR/Median value over 0.15 implies a poor quality data set. SIGNIFICANT CHANGE FROM PRIOR EXAM: Significant change if liver stiffness measurement is 10% or greater from prior exam. OTHER CONSIDERATIONS: The stage of liver fibrosis may be overestimated in the setting of acute hepatitis, liver inflammation, elevated liver function tests, hepatic vascular congestion, obstructive cholestasis, non-fasting state, and infiltrative diseases such as amyloidosis and lymphoma. In some patients with NAFLD, the liver stiffness thresholds for compensated advanced chronic liver disease may be lower. In causes other than viral hepatitis and NAFLD, liver stiffness thresholds are not well established.
== END 2022-06-30 09:37 | disposition home or self-care (01) ==
LOC: HO.US 09:36
PROVIDERS: PCP Internal Medicine; Visit Provider Nurse Practitioner Family
DX: R79.89 Other specified abnormal findings of blood chemistry (principal)
CPT/HCPCS: 76705; 76981

== ENCOUNTER 2022-08-28 13:38 | Outpatient (REF) | payer MEDICARE, SELFPAY ==
[2022-08-28 16:13] LABS: Appearance Urine Turbid; Color Urine Yellow; Glucose Urine UA Negative (Negative); Leukocyte Esterase Urine Trace (Negative); Nitrite Urine Negative (Negative); PH 5.5 (5.0-9.0); Specific Gravity - Urine 1.025 (1.005-1.025); UMIC TRIGGER UACC YES; Urine Blood Negative (Negative); Urine Ketones Trace mg/dL (Negative); Urine Protein Negative (Neg-Trace)
[2022-08-28 16:33] LABS: Bacteria Urine None Seen (None Seen); Calcium Oxalate Crystals Urine Present; Hyaline Casts Urine 0-2 /LPF (0-2); RBC Urine 0-2 /HPF (0-2); WBC Urine 0-5 /HPF (0-5)
[2022-08-28 16:47] LABS: Basophils Percent Auto 0.5 % (0-2); Eosinophils Absolute Auto 0.1 X10*3/uL (0.0-0.4); Eosinophils Percent Auto 2.7 % (0-4); Imm Gran Abs Auto 0.01 X10*3/uL (0.00-0.03); Imm Gran Pct Auto 0.2 % (0.0-0.4); Lymphocytes Percent Auto 23.6 % (20-40); MANUAL DIFF FLAG NO; Mean Corpuscular HGB Conc 32.5 g/dl (31.0-35.0); Mean Corpuscular Hemoglobin 29.7 pg (27.0-33.0); Mean Corpuscular Volume 91.5 fL (80.0-98.0); Mean Platelet Volume 11.6 fL (9.4-12.3); Monocytes Absolute Auto 0.3 X10*3/uL (0.1-1.2); Monocytes Percent Auto 6.4 % (2-11); Neutrophils Absolute Auto 2.9 x10*3/uL (2.0-8.3); Neutrophils Percent Auto 66.6 % (45-73); Platelet Count 151 X10*3/uL (160-400); Red Blood Count 4.37 X10*6/uL (4.20-5.50); Red Cell Distribution Width 13.8 % (11.0-16.0); White Blood Count 4.4 X10*3/uL (4.8-10.8)
[2022-08-28 16:59] LABS: Estimated Average Glucose 151 mg/dL; Hemoglobin A1c % 6.9 %
[2022-08-28 17:11] LABS: Alanine Aminotransferase 29 U/L (0-31); Albumin Level 3.9 g/dL (3.5-5.0); Alkaline Phosphatase 88 U/L (39-117); Anion Gap 11 (12-20); Aspartate Amino Transferase 33 U/L (5-31); Bilirubin Total 0.6 mg/dL (0.0-1.0); Blood Urea Nitrogen 18 mg/dL (9-16); Calcium 9.5 mg/dL (8.4-10.2); Carbon Dioxide 27 mmol/L (22-29); Chloride 105 mmol/L (96-108); Estimated Glomerular Filt Rate > 60; Glucose Random 174 mg/dL (60-115); Potassium 4.4 mmol/L (3.3-5.1); Sodium 139 mmol/L (135-145)
[2022-08-28 17:22] LABS: Ferritin 193 ng/mL (10-250)
== END 2022-08-28 13:39 | disposition home or self-care (01) ==
LOC: HO.HMGCLDS 13:38
PROVIDERS: PCP Internal Medicine; Visit Provider Internal Medicine
DX: E13.9 Other specified diabetes mellitus without complications (principal); E78.9 Disorder of lipoprotein metabolism, unspecified; F41.1 Generalized anxiety disorder; I10 Essential (primary) hypertension; I48.0 Paroxysmal atrial fibrillation; R74.8 Abnormal levels of other serum enzymes; R79.89 Other specified abnormal findings of blood chemistry
CPT/HCPCS: 36415; 80053; 81001; 82728; 83036; 85025

== ENCOUNTER → 2022-09-01 08:51 | Outpatient (BNVA) | payer MEDICARE, SELFPAY | PROVIDERS: PCP Internal Medicine; Visit Provider Nurse Practitioner Family | DX: K59.01 Slow transit constipation (principal); R74.8 Abnormal levels of other serum enzymes | CPT/HCPCS: 99212 ==

== ENCOUNTER 2022-11-23 08:01 | Outpatient (RCR) | payer MEDICARE, SELFPAY | END 2022-11-30 16:00 | disposition home or self-care (01) | LOC: HO.WCC 08:01 | PROVIDERS: PCP Internal Medicine; Visit Provider Physician Assistant | DX: E11.622 Type 2 diabetes mellitus with other skin ulcer (principal); L97.322 Non-pressure chronic ulcer of left ankle with fat layer exposed; I87.312 Chronic venous hypertension (idiopathic) with ulcer of left lower extremity; I87.2 Venous insufficiency (chronic) (peripheral); K75.81 Nonalcoholic steatohepatitis (NASH); I10 Essential (primary) hypertension | CPT/HCPCS: 11042; 99212 ==

== ENCOUNTER → 2022-11-24 09:32 | Outpatient (BNVA) | payer MEDICARE, SELFPAY | PROVIDERS: PCP Internal Medicine; Visit Provider Nurse Practitioner Family | DX: K59.04 Chronic idiopathic constipation (principal); R74.8 Abnormal levels of other serum enzymes | CPT/HCPCS: 99212 ==

== ENCOUNTER 2022-11-27 10:48 | Outpatient (REF) | payer MEDICARE, SELFPAY ==
[2022-11-27 14:11] LABS: Appearance Urine Turbid; Color Urine Yellow; Glucose Urine UA Negative (Negative); Leukocyte Esterase Urine Small (1+) (Negative); Nitrite Urine Negative (Negative); PH 5.5 (5.0-9.0); UMIC TRIGGER UACC YES; Urine Blood Negative (Negative); Urine Ketones Negative (Negative); Urine Protein Negative (Neg-Trace)
[2022-11-27 14:31] LABS: Bacteria Urine None Seen (None Seen); Hyaline Casts Urine 0-2 /LPF (0-2); RBC Urine 0-2 /HPF (0-2); UACC Culture Trigger YES; WBC Urine 0-5 /HPF (0-5)
== END 2022-11-27 10:49 | disposition home or self-care (01) ==
LOC: HO.HMGCLDS 10:48
PROVIDERS: PCP Internal Medicine; Visit Provider Internal Medicine
DX: R10.9 Unspecified abdominal pain (principal)
CPT/HCPCS: 81001; 87086

== ENCOUNTER 2023-02-16 08:29 | Outpatient (AMB) | payer MEDICARE, SELFPAY ==
--- NOTE | 2023-02-16 08:53 | A.OFFVIS_ITS ---
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 Allergies vancomycin [VANCOMYCIN] Allergy (Intermediate, Verified 02/16/23 09:04) HIVES, ITCHING DEANNA Inhibitors Allergy (Mild, Verified 02/16/23 09:04) Cough lisinopril [LISINOPRIL] Allergy (Mild, Verified 02/16/23 09:04) COUGH Medication List - Last Reconciled 02/16/23 by PABLO Palacios albuterol sulfate 90 mcg/actuation 1 - 2 puffs inhalation BID PRN 30 days alendronate 70 mg PO QWEEK blood sugar diagnostic (FreeStyle Lite Strips) patient to check blood sugar once daily or as needed blood-glucose meter (FreeStyle Lite Meter kit) Patient to check blood sugar once daily or as needed budesonide-formoterol 160-4.5 mcg/actuation (Symbicort) 2 puffs PO BID 30 days cholecalciferol (vitamin D3) (Vitamin D3) 25 mcg PO DAILY docusate sodium 100 mg PO BEDTIME escitalopram oxalate 20 mg PO DAILY 90 days glipizide 10 mg PO BID 90 days hydrochlorothiazide 25 mg PO DAILY 90 days lancets (FreeStyle Lancets) Patient to check blood sugar once daily or as needed losartan 50 mg PO DAILY montelukast 10 mg PO BEDTIME polyethylene glycol 3350 (Miralax) 17 grams PO DAILY pravastatin 20 mg PO DAILY 90 days rivaroxaban 20 mg PO DAILY HPI f/up HPI Details Kellie is a 72-year-old female with past medical history of obesity, hypertension, diabetes, paroxysmal atrial fibrillation who presents for follow- up. Today she reports she has been doing generally well since her last visit 11/26/2021. She has not had any changes to her health or hospital admissions. She has some shortness of breath at times which she relates to her asthma. She denies any chest discomfort at rest or with activity. On rare occasions she will notice heart palpitations. She does not have any heart palpitations at the time of this visit. No presyncope, syncope, PND, orthopnea or edema. She did have a fall in May when she tripped going up stairs. No significant injury, just soreness. Taking meds as directed. No bleeding issues with Xarelto. [facility] Medical History Anxiety, generalized Asthma Colon cancer screening Diabetes 1.5, managed as type 2 Elevated ferritin Elevated liver enzymes Hypertension, essential Lipid disorder Osteoporosis Pain of left calf Paroxysmal A-fib Tubular adenoma Surgical History History of section History of colonoscopy History of liver biopsy Hx of breast biopsy Hx of cholecystectomy Family History Father No problems noted. Mother Ovarian cancer Colon cancer Social History Housing: House Alcohol intake: never Patient Tobacco Use Status: Never used Tobacco e-Cigarette/Vaping Use: Never Used service: No Current occupational status: employed Cognitive needs: No Hearing needs: No Vision needs: Yes Review of Systems Const All systems reviewed & are unremarkable except as noted in HPI and below ENT Denies dizziness Card Details: No change to shortness of breath, chronic. Denies chest pain, Denies chest pain at rest, Denies chest pain with activity, Denies rapid heart rate, Denies pedal edema, Denies edema, Denies leg edema, Denies lightheadedness, Denies palpitations, Denies dyspnea, Reports dyspnea on exertion and Denies orthopnea Resp Details: Sleeps with head of the bed elevated due to GERD Denies cough, Denies dyspnea and Reports dyspnea on exertion GI Denies hematochezia and Denies change in stool character Musc Denies abnormal gait, Denies limited range of motion, Denies muscle cramps, Denies muscle weakness, Denies numbness, Denies radiating pain into limb, Denies stiffness and Denies tingling Neuro Denies abnormal gait, Denies dizziness, Denies numbness and Denies tingling Endo Denies palpitations Physical Exam Vital Signs: Last Vital Signs Pulse 67 02/16/23 08:54 BP 130/72 02/16/23 08:54 BMI result Body Mass Index 37.0 Const General: cooperative, healthy appearing, comfortable and no acute distress Orientation/consciousness: patient oriented x3 Neck Neck: Yes normal visual inspection Resp Effort & Inspection: normal respiratory effort Auscultation: clear to auscultation bilaterally, no crackles, no rales, no rhonchi and no wheezes Cardio Jugular venous distension: no JVD Rate: regular rate Rhythm: abnormal rhythm Heart sounds: S1 normal heart sound present, S2 normal heart sound present, no gallops, no murmurs and no rubs Neuro General: patient oriented x3 Extrem General: Yes normal to inspection Psych Appearance: grossly normal Mental Status: mental status grossly normal Speech and movement: Normal speech and movement present Office Procedures EKG Details: Today, read by me, AFib, low voltage QRS, rate 67, QTC 338 millisecond [id number], Complete Assessment & Plan Assessment & Plan (1) Paroxysmal A-fib: Code(s): I48.0 - Paroxysmal atrial fibrillation Plan: History of paroxysmal atrial fibrillation. She has a sensitivity to caffeine and its consumption can increase her heart palpitations. She will notice heart palpitations on occasion, nothing that is orally bothersome to her. Prior EKG 09/2021 showed sinus rhythm. EKG done today showing atrial fibrillation, rate 67. She is currently not on rate slowing agents. Will check a Holter monitor to assess for persistent AFib, average AFib rate. She is on Xarelto for anticoagulation. No reports of bleeding. Labs done 08/28/2022 shows hematocrit 40, creatinine 0.71. Plan to call her with Holter results. Cardiology follow-up 6 months, sooner if needed (2) Chest discomfort: Code(s): R07.89 - Other chest pain Plan: Prior Report of an episode of epigastric squeezing. Which she says did not feel like GERD. Since then she has not had any recurrent episodes. Nuclear stress test was done on 10/09/2021 which showed normal myocardial perfusion imaging. An echocardiogram done 11/13/2021 showed EF 60-65%, no regional wall motion abnormalities and no valve abnormalities. She has no reports of exertional chest discomfort. Her episode was likely noncardiac in nature. Instructed to discuss with PCP if she has further episodes. Does have history of GERD and sleeps with her head of the bed elevated due to this reason. Signs and symptoms of true angina reviewed with her. (3) Hypertension, essential: Code(s): I10 - Essential (primary) hypertension Plan: Well controlled at present time. Continue losartan, hydrochlorothiazide. Orders: Orders ECG 3 day holter monitor Today I48.0 - Paroxysmal atrial fibrillation Coding Level of Care Code Est Pt Level 4 (14196) Diagnoses Paroxysmal A-fib I48.0 Chest discomfort R07.89 Hypertension, essential I10 CPT Codes EKG - CPT: 98950-[id number], Complete ([id number]) Time Spent (min) 28 Comment Chart review, documentation, interview, assessment
[2023-02-16 08:54] VITALS: BP 130/72; PULSE 67; BMI 37.0
== END 2023-02-16 09:22 | disposition home or self-care (01) ==
PROVIDERS: PCP Internal Medicine; Referring Provider Internal Medicine; Visit Provider Nurse Practitioner Family
DX: I48.0 Paroxysmal atrial fibrillation (principal); R07.89 Other chest pain; I10 Essential (primary) hypertension
CPT/HCPCS: 93010; 99214

== ENCOUNTER → 2023-02-16 08:29 | Outpatient (BNVA) | payer MEDICARE, SELFPAY | PROVIDERS: PCP Internal Medicine; Referring Provider Internal Medicine; Visit Provider Nurse Practitioner Family | DX: I48.0 Paroxysmal atrial fibrillation (principal); I10 Essential (primary) hypertension; R07.89 Other chest pain; Z79.01 Long term (current) use of anticoagulants; Z79.899 Other long term (current) drug therapy | CPT/HCPCS: 93005; 99212 ==

== ENCOUNTER 2023-02-26 10:21 | Outpatient (REF) | payer MEDICARE, SELFPAY ==
[2023-02-26 13:43] LABS: MANUAL DIFF FLAG NO
[2023-02-26 13:52] LABS: Basophils Percent Auto 0.5 % (0-2); Eosinophils Absolute Auto 0.1 X10*3/uL (0.0-0.4); Eosinophils Percent Auto 2.5 % (0-4); Hematocrit 40.8 % (37.0-47.0); Hemoglobin 13.1 g/dl (12.0-16.0); Imm Gran Abs Auto 0.02 X10*3/uL (0.00-0.03); Imm Gran Pct Auto 0.5 % (0.0-0.4); Lymphocytes Percent Auto 21.9 % (20-40); Mean Corpuscular HGB Conc 32.1 g/dl (31.0-35.0); Mean Corpuscular Hemoglobin 30.3 pg (27.0-33.0); Mean Corpuscular Volume 94.4 fL (80.0-98.0); Mean Platelet Volume 11.9 fL (9.4-12.3); Monocytes Absolute Auto 0.3 X10*3/uL (0.1-1.2); Monocytes Percent Auto 7.1 % (2-11); Neutrophils Percent Auto 67.5 % (45-73); Platelet Count 134 X10*3/uL (160-400); Red Blood Count 4.32 X10*6/uL (4.20-5.50); Red Cell Distribution Width 13.2 % (11.0-16.0); White Blood Count 4.4 X10*3/uL (4.8-10.8)
[2023-02-26 14:36] LABS: Alanine Aminotransferase 29 U/L (0-31); Alkaline Phosphatase 70 U/L (39-117); Anion Gap 13 (12-20); Aspartate Amino Transferase 31 U/L (5-31); Bilirubin Total 0.6 mg/dL (0.0-1.0); Blood Urea Nitrogen 11 mg/dL (9-16); Calcium 9.2 mg/dL (8.4-10.2); Carbon Dioxide 26 mmol/L (22-29); Chloride 105 mmol/L (96-108); Estimated Glomerular Filt Rate > 60; Glucose Random 108 mg/dL (60-115); Potassium 4.3 mmol/L (3.3-5.1); Sodium 140 mmol/L (135-145); Total Protein 7.3 g/dL (6.5-8.0)
[2023-02-26 15:06] LABS: Estimated Average Glucose 123 mg/dL; Hemoglobin A1c % 5.9 % (<6.0)
[2023-02-27 23:44] LABS: LDL Cholesterol Direct 68 mg/dL (<100)
== END 2023-02-26 10:22 | disposition home or self-care (01) ==
LOC: HO.HMGCLDS 10:21
PROVIDERS: PCP Internal Medicine; Visit Provider Internal Medicine
DX: E13.9 Other specified diabetes mellitus without complications (principal); I10 Essential (primary) hypertension; F41.1 Generalized anxiety disorder; J45.40 Moderate persistent asthma, uncomplicated; E66.09 Other obesity due to excess calories; E78.9 Disorder of lipoprotein metabolism, unspecified
CPT/HCPCS: 36415; 80053; 83036; 83721; 85025

== ENCOUNTER → 2023-02-26 10:59 | Outpatient (REF) | payer MEDICARE, SELFPAY ==
--- NOTE | 2023-02-26 11:01 | HM_ITS ---
* Total monitoring time 3 days. * Underlying rhythm is both sinus as well as atrial fibrillation. Atrial fibrillation burden listed as 23%, but may not be accurate, as lot of strips have significant artifact. Additionally some strips thought to be sinus could still be atrial fibrillation. Overall, think there is more atrial fibrillation than sinus. * Longest run of atrial fibrillation about 16 hour s. Fastest 115/Min. * Occasional PVCs. * No significant pauses or AV blocks. * Shortness of breath in patient diary associated with strip showing extensive artifact with a ventricular rate of 96/Min. With regard to other symptoms, the associated strips have too much artifact to be definitive. MTDD
== END ==
LOC: HO.CARD 10:59
PROVIDERS: PCP Internal Medicine; Visit Provider Nurse Practitioner Family
DX: I48.0 Paroxysmal atrial fibrillation (principal)
CPT/HCPCS: 93242

== ENCOUNTER → 2023-02-26 11:01 | Outpatient (BNV) | payer MEDICARE, SELFPAY | PROVIDERS: PCP Internal Medicine; Visit Provider Internal Medicine | DX: I48.0 Paroxysmal atrial fibrillation (principal) | CPT/HCPCS: 93244 ==

== ENCOUNTER 2023-03-02 14:26 | Outpatient (AMB) | payer MEDICARE, SELFPAY ==
[2023-03-02 14:31] VITALS: BP 138/60; PULSE 71; O2SAT 96; BMI 37.2
--- NOTE | 2023-03-02 14:31 | MHC.PC.OV ---
Vital Signs 03/02/23 14:31 Height 5 ft 1 in Weight 197 lb BMI 37.2 BP 138/60 Blood Pressure Location Rt brachial Position Sitting Pulse 71 Pulse Source Pulse Oximeter Pulse Oximetry (%) 96 Oxygen Delivery Method Room Air Intake Visit Reasons: PE - Microalbumin needed Allergies vancomycin [VANCOMYCIN] Allergy (Intermediate, Verified 03/02/23 14:34) HIVES, ITCHING DEANNA Inhibitors Allergy (Mild, Verified 03/02/23 14:34) Cough lisinopril [LISINOPRIL] Allergy (Mild, Verified 03/02/23 14:34) COUGH Medication List - Last Reconciled 03/02/23 by Johny Adorno MD albuterol sulfate 90 mcg/actuation 1 - 2 puffs inhalation BID PRN 30 days alendronate 70 mg PO QWEEK blood sugar diagnostic (FreeStyle Lite Strips) patient to check blood sugar once daily or as needed blood-glucose meter (FreeStyle Lite Meter kit) Patient to check blood sugar once daily or as needed budesonide-formoterol 160-4.5 mcg/actuation (Symbicort) 2 puffs PO BID 30 days cholecalciferol (vitamin D3) (Vitamin D3) 25 mcg PO DAILY docusate sodium 100 mg PO BEDTIME escitalopram oxalate 20 mg PO DAILY 90 days glipizide 10 mg PO BID 90 days hydrochlorothiazide 25 mg PO DAILY 90 days lancets (FreeStyle Lancets) Patient to check blood sugar once daily or as needed losartan 50 mg PO DAILY montelukast 10 mg PO BEDTIME polyethylene glycol 3350 (Miralax) 17 grams PO DAILY pravastatin 20 mg PO DAILY 90 days rivaroxaban 20 mg PO DAILY Tobacco use date assessed: 03/02/23 Fall risk assessment: 1 Fall in past year Last assessed Fall Risk: 03/02/23 Dental Screening Dental Screen Date: 03/02/23 Did you have a dental visit in the last 12 months?: No Did you have a dental problem in the last 6 months where you did not have access to dental care?: No Was dental information given to patient?: Patient has dentist HPI PE - Microalbumin needed HPI Details Physical exam appointment Patient is due for mammogram Currently patient have upper respiratory tract infection with coughing however getting better Patient says that the whole household was sick like that. Medication list reviewed Labs reviewed She is due for microalbumin which I added with next set of lab. BMI is elevated patient is trying to lose weight. [facility] Medical History Pain of left calf Tubular adenoma Elevated ferritin Osteoporosis Elevated liver enzymes Colon cancer screening Paroxysmal A-fib Asthma Anxiety, generalized Lipid disorder Hypertension, essential Diabetes 1.5, managed as type 2 Surgical History History of colonoscopy Hx of breast biopsy History of liver biopsy History of section Hx of cholecystectomy Family History Father No problems noted. Mother Ovarian cancer Colon cancer Social History Housing: House Alcohol intake: never Patient Tobacco Use Status: Never used Tobacco e-Cigarette/Vaping Use: Never Used service: No Current occupational status: employed Cognitive needs: No Hearing needs: No Vision needs: Yes Questionnaire Thrive Questionnaire Date Thrive assessed: 10/31/21 AUDIT C Alcohol Use Questionnaire (AUDIT-C) 1. How often do you have a drink containing alcohol?: Never 3. How often do you have six or more drinks on one occasion?: Never Total Score: 0 Score Reviewed/Action Taken: Yes SEAN-7 AMB Questionnaire SEAN-7 Date SEAN - 7 assessed: 10/31/21 Source: Developed by Drs. Bogdan So, Michelle Cuevas, Lamberto Pruett and colleagues, with an educational james from [employer]. Review of Systems Const Denies chills, Denies fever(s) and Denies headache(s) Eyes Denies blurry vision ENT Denies headache(s), Denies nasal discharge, Denies nasal obstruction, Denies odynophagia and Denies sinus pain Card Denies chest pain at rest and Denies chest pain with activity Resp Denies hemoptysis GI Denies diarrhea, Denies odynophagia, Denies vomiting and Denies hematemesis Reports as per HPI Musc Denies abnormal gait Skin/Breast Reports as per HPI Neuro Denies Neuro-related abnormal movements, Denies Abnormal speech present, Denies abnormal gait, Denies headache(s) and Denies Sensory deficit (Neuro) Psych Denies mood swings and Denies paranoia Endo Reports as per HPI Lars/Lymph Reports as per HPI Aller/Immun Reports as per HPI Physical exam (Primary Care) Vital Signs: Last Vital Signs Pulse 71 03/02/23 14:31 BP 138/60 03/02/23 14:31 Pulse Ox 96 03/02/23 14:31 Oxygen Delivery Method Room Air 03/02/23 14:31 BMI result Body Mass Index 37.2 Tobacco/Smoking Status: Tobacco use Status Tobacco use date assessed 03/02/23 03/02/23 14:35 Patient Tobacco Use Status Never used Tobacco 03/02/23 14:32 e-Cigarette/Vaping Use Never Used 03/02/23 14:32 Thrive Assessment: Date of Thrive Assessment Date Thrive assessed 10/31/21 03/02/23 14:32 Const General: cooperative, comfortable and no acute distress Orientation/consciousness: patient oriented x3 HENMT Head: Yes normocephalic and Yes atraumatic Eyes General: appearance normal, both eyes and all related structures Pupils: Equal, round and reactive pupils present EOM: EOMs intact bilaterally Neck Neck: Yes supple and No lymphadenopathy Thyroid: Thyroid normal Lymphatic: no lymphadenopathy noted Resp Effort & Inspection: normal respiratory effort and able to speak in complete sentences Auscultation: clear to auscultation bilaterally Cardio Heart sounds: S1 normal heart sound present and S2 normal heart sound present GI Palpation (GI): Soft to palpation and nontender Auscultation: normal bowel sounds General: Yes no CVA tenderness Back/Spine/Pelvis Back: no CVA tenderness Skin General skin exam: elasticity normal and turgor normal Neuro General: patient oriented x3 and gait normal Cranial nerves: Yes Equal, round and reactive pupils present Speech: No Abnormal speech present Sensory Exam: No Sensory deficit (Neuro) Coordination: tandem gait normal and Romberg test negative Extrem General: Yes normal exam except as noted and No edema Assessment and Plan Assessment & Plan (1) Encounter for general adult medical examination with abnormal findings: Code(s): Z00.01 - Encounter for general adult medical examination with abnormal findings (2) Diabetes 1.5, managed as type 2: Code(s): E13.9 - Other specified diabetes mellitus without complications (3) Hypertension, essential: Code(s): I10 - Essential (primary) hypertension (4) Lipid disorder: Code(s): E78.9 - Disorder of lipoprotein metabolism, unspecified (5) Anxiety, generalized: Code(s): F41.1 - Generalized anxiety disorder (6) Asthma, moderate persistent: Code(s): J45.40 - Moderate persistent asthma, uncomplicated Qualifiers: Asthma complication type: uncomplicated Qualified Code(s): J45.40 - Moderate persistent asthma, uncomplicated (7) Obesity due to excess calories: Code(s): E66.09 - Other obesity due to excess calories Qualifiers: Obesity classification: adult class 2 (BMI 35 - 39.9) Serious obesity comorbidity presence: with serious comorbidity Body mass index: BMI 37.0-37.9 Qualified Code(s): E66.01 - Morbid (severe) obesity due to excess calories; Z68.37 - Body mass index [BMI] 37.0-37.9, adult (8) Paroxysmal A-fib: Code(s): I48.0 - Paroxysmal atrial fibrillation Plan Physical exam appointment Patient is due for mammogram Currently patient have upper respiratory tract infection with coughing however getting better Patient says that the whole household was sick like that. Medication list reviewed Labs reviewed She is due for microalbumin which I added with next set of lab. BMI is elevated patient is trying to lose weight. Orders: Orders Hemoglobin A1c 3 Months E13.9 - Other specified diabetes mellitus without complications, E78.9 - Disorder of lipoprotein metabolism, unspecified, I10 - Essential (primary) hypertension Microalbumin, Random (w Creat) 3 Months E13.9 - Other specified diabetes mellitus without complications, E78.9 - Disorder of lipoprotein metabolism, unspecified, I10 - Essential (primary) hypertension Comprehensive Met. Panel 3 Months E13.9 - Other specified diabetes mellitus without complications, E78.9 - Disorder of lipoprotein metabolism, unspecified, I10 - Essential (primary) hypertension Coding Level of Care Code Est Pt Prev Care >65y(98855) Diagnoses Encounter for general adult medical examination with abnormal findings Z00.01 Diabetes 1.5, managed as type 2 E13.9 Hypertension, essential I10 Lipid disorder E78.9 Anxiety, generalized F41.1 Moderate persistent asthma without complication J45.40 Asthma complication type: uncomplicated Class 2 severe obesity due to excess calories with serious comorbidity and body mass index (BMI) of 37.0 to 37.9 in adult E66.01; Z68.37 Obesity classification: adult class 2 (BMI 35 - 39.9) Serious obesity comorbidity presence: with serious comorbidity Body mass index: BMI 37.0-37.9 Paroxysmal A-fib I48.0
== END 2023-03-02 14:49 | disposition home or self-care (01) ==
PROVIDERS: PCP Internal Medicine; Visit Provider Internal Medicine
DX: Z00.00 Encounter for general adult medical examination without abnormal findings (principal); E13.9 Other specified diabetes mellitus without complications; I10 Essential (primary) hypertension; J45.40 Moderate persistent asthma, uncomplicated; Z68.37 Body mass index [BMI] 37.0-37.9, adult; E66.01 Morbid (severe) obesity due to excess calories; I48.0 Paroxysmal atrial fibrillation; E78.9 Disorder of lipoprotein metabolism, unspecified; F41.1 Generalized anxiety disorder
CPT/HCPCS: 99397

== ENCOUNTER 2023-03-25 08:52 | Outpatient (AMB) | payer MEDICARE, SELFPAY ==
--- NOTE | 2023-03-25 08:58 | A.OFFVIS_ITS ---
Intake Vital Signs 03/25/23 09:05 Height 5 ft 1 in Weight 198 lb 6.656 oz BMI 37.5 BP 148/70 H Pulse 68 Intake Visit Reasons: 4 month fu Associate Financial Analyst Required: No Information Interpreted: clinical only Allergies vancomycin [VANCOMYCIN] Allergy (Intermediate, Verified 03/25/23 09:09) HIVES, ITCHING DEANNA Inhibitors Allergy (Mild, Verified 03/25/23 09:09) Cough lisinopril [LISINOPRIL] Allergy (Mild, Verified 03/25/23 09:09) COUGH HPI 4 month fu HPI Details LAST VISIT: Elevated liver enzymes Will repeat liver enzymes next visit. Patient can continue low fat diet, increase activity and weight loss encouraged. Constipation Patient was encouraged to take MiraLax every morning. Patient can take a Colace 200mg every day. Patient was encouraged to increase fluid intake and activity to promote better bowel motility. I will see her in 4 months, sooner on as needed basis. Patient is agreeable to plan of care and verbalizes understanding of instructions. She was given the opportunity to ask questions all questions answered. TODAY'S VISIT Patient is here today for follow-up. Patient reports that since the last time I have seen her she has been doing well. Liver enzymes normalize. Patient states that she is trying to lose a little bit of weight. Reports that she is moving her bowels without any issues. Patient reports that she did change her diet and is eating healthier now. Patient will be due to go for colorectal screening in March of 2024. Patient denies any melena, hematochezia, unintentional weight loss or ribbon like stools. Patient reports that she has been feeling fairly well. [facility] Medical History (Reviewed 03/25/23 @ 09:11 by Eunice Fong [facility] [address]) Pain of left calf Tubular adenoma Elevated ferritin Osteoporosis Elevated liver enzymes Colon cancer screening Paroxysmal A-fib Asthma Anxiety, generalized Lipid disorder Hypertension, essential Diabetes 1.5, managed as type 2 Surgical History History of colonoscopy Hx of breast biopsy History of liver biopsy History of section Hx of cholecystectomy Family History Father No problems noted. Mother Ovarian cancer Colon cancer Social History Housing: House Alcohol intake: never Patient Tobacco Use Status: Never used Tobacco e-Cigarette/Vaping Use: Never Used service: No Current occupational status: employed Cognitive needs: No Hearing needs: No Vision needs: Yes Review of Systems Const Denies weight gain and Denies weight loss ENT Reports no additional complaints, Denies dysphagia and Denies odynophagia Card Reports no additional complaints Resp Reports no additional complaints GI Denies abdominal pain, Denies belching, Denies melena, Denies bloating, Denies change in bowel habits, Denies dysphagia, Denies excessive flatus, Denies dyspepsia, Denies heartburn, Denies diarrhea, Denies loose stools, Denies nausea, Denies odynophagia and Denies vomiting Reports no additional complaints Musc Reports no additional complaints Neuro Reports no additional complaints Psych Reports no additional complaints Endo Reports no additional complaints Physical Exam Vital Signs: Last Vital Signs Pulse 68 03/25/23 09:05 BP 148/70 H 03/25/23 09:05 BMI result Body Mass Index 37.5 Const General: healthy appearing, no acute distress and well developed Nutritional Appearance: obese Orientation/consciousness: patient oriented x3 HEENT Head: Yes normal to inspection, Yes normocephalic and Yes atraumatic Face and sinus: Yes normal facial exam Mouth: Normal oral and palatal mucosa present Throat: Yes posterior oropharynx normal, Yes tonsils normal and Yes uvula midline Eyes General: appearance normal, both eyes and all related structures Neck Neck: Yes normal visual inspection, Yes full ROM and Yes trachea midline Thyroid: Thyroid normal Resp Effort & Inspection: normal respiratory effort, able to speak in complete sentences, no tracheal deviation and symmetric chest movement Auscultation: clear to auscultation bilaterally Cardio Rate: regular rate Heart sounds: S1 normal heart sound present and S2 normal heart sound present GI Inspection: Yes normal to inspection, No distended and Yes obesity Palpation (GI): Soft to palpation, not firm, nontender and No hepatosplenomegaly present Auscultation: normal bowel sounds General: Yes no CVA tenderness Back/Spine/Pelvis Back: no CVA tenderness Skin General skin exam: elasticity normal, turgor normal and dry skin Neuro General: patient oriented x3 Psych Appearance: grossly normal Mental Status: mental status grossly normal Results Reviewed Results Reviewed: Laboratory Tests 02/26/23 10:26 Hemoglobin A1c % 5.9 Total Bilirubin 0.6 AST 31 ALT 29 Alkaline Phosphatase 70 Assessment & Plan Assessment & Plan (1) Elevated liver enzymes: Code(s): R74.8 - Abnormal levels of other serum enzymes (2) Constipation: Code(s): K59.00 - Constipation, unspecified Qualifiers: Constipation type: slow transit constipation Qualified Code(s): K59.01 - Slow transit constipation Plan: Patient was encouraged to continue low fat diet. Patient was encouraged to lose weight. Patient started walking. Patient was encouraged to continue taking MiraLax on as needed basis to help her with her bowels. Patient will be due to go for colonoscopy next year I will see her in 8 months, sooner on as needed basis. Patient is agreeable to this plan and verbalizes understanding of instructions. She was given the opportunity to ask questions and all questions answered. Thank you for allowing me to participate in her care Coding Level of Care Code Est Pt Level 3 (74956) Diagnoses Elevated liver enzymes R74.8 Slow transit constipation K59.01 Constipation type: slow transit constipation Time Spent (min) 25 Comment 15 minutes spent with patient and additional 10 minutes spent reviewing her records
[2023-03-25 09:05] VITALS: BP 148/70; PULSE 68; BMI 37.5
== END 2023-03-25 09:34 | disposition home or self-care (01) ==
PROVIDERS: PCP Internal Medicine; Visit Provider Nurse Practitioner Family
DX: R74.8 Abnormal levels of other serum enzymes (principal); K59.01 Slow transit constipation
CPT/HCPCS: 99213

== ENCOUNTER → 2023-03-25 08:52 | Outpatient (BNVA) | payer MEDICARE, SELFPAY | PROVIDERS: PCP Internal Medicine; Visit Provider Nurse Practitioner Family | DX: R74.8 Abnormal levels of other serum enzymes (principal); K59.01 Slow transit constipation | CPT/HCPCS: 99212 ==

== ENCOUNTER 2023-05-12 09:10 | Outpatient (REF) | payer MEDICARE, SELFPAY ==
[2023-05-12 11:53] LABS: Estimated Average Glucose 140 mg/dL; Hemoglobin A1c % 6.5 % (<6.0)
[2023-05-12 11:57] LABS: Alanine Aminotransferase 29 U/L (0-31); Alkaline Phosphatase 58 U/L (39-117); Anion Gap 12 (12-20); Aspartate Amino Transferase 34 U/L (5-31); Bilirubin Total 0.8 mg/dL (0.0-1.0); Blood Urea Nitrogen 21 mg/dL (9-16); Calcium 9.5 mg/dL (8.4-10.2); Carbon Dioxide 28 mmol/L (22-29); Chloride 101 mmol/L (96-108); Estimated Glomerular Filt Rate > 60; Glucose Random 145 mg/dL (60-115); Potassium 4.5 mmol/L (3.3-5.1); Sodium 136 mmol/L (135-145); Total Protein 7.7 g/dL (6.5-8.0)
[2023-05-12 12:38] LABS: Creatinine Urine 136.29 mg/dL; Microalbum/Creatinine Ratio Ur 5.8 ug/mg cr (<30)
== END 2023-05-12 09:11 | disposition home or self-care (01) ==
LOC: HO.HMGCLDS 09:10
PROVIDERS: PCP Internal Medicine; Visit Provider Internal Medicine
DX: E13.9 Other specified diabetes mellitus without complications (principal); E78.9 Disorder of lipoprotein metabolism, unspecified; I10 Essential (primary) hypertension
CPT/HCPCS: 36415; 80053; 82043; 82570; 83036

== ENCOUNTER 2023-07-13 13:33 | Outpatient (AMB) | payer MEDICARE, SELFPAY ==
[2023-07-13 13:35] VITALS: BP 130/70; PULSE 79; O2SAT 96; BMI 37.6
--- NOTE | 2023-07-13 13:35 | A.OFFPC_ITS ---
Vital Signs 07/13/23 13:35 Height 5 ft 1 in Weight 199 lb BMI 37.6 BP 130/70 Blood Pressure Location Lt brachial Position Sitting Pulse 79 Pulse Source Pulse Oximeter Pulse Oximetry (%) 96 Oxygen Delivery Method Room Air Intake Visit Reasons: 3M FU, rescheduled from 06/02/23 Allergies vancomycin [VANCOMYCIN] Allergy (Intermediate, Verified 07/13/23 13:35) HIVES, ITCHING DEANNA Inhibitors Allergy (Mild, Verified 07/13/23 13:35) Cough lisinopril [LISINOPRIL] Allergy (Mild, Verified 07/13/23 13:35) COUGH Medication List - Last Reconciled 07/13/23 by Johny Adorno MD albuterol sulfate 90 mcg/actuation 1 - 2 puffs inhalation BID PRN 30 days alendronate 70 mg PO QWEEK blood sugar diagnostic (FreeStyle Lite Strips) patient to check blood sugar once daily or as needed blood-glucose meter (FreeStyle Lite Meter kit) Patient to check blood sugar once daily or as needed budesonide-formoterol 160-4.5 mcg/actuation (Symbicort) 2 puffs PO BID 30 days cholecalciferol (vitamin D3) (Vitamin D3) 25 mcg PO DAILY docusate sodium 100 mg PO BEDTIME escitalopram oxalate 20 mg PO DAILY 90 days glipizide 10 mg PO BID 90 days hydrochlorothiazide 25 mg PO DAILY 90 days lancets (FreeStyle Lancets) Patient to check blood sugar once daily or as needed losartan 50 mg PO DAILY montelukast 10 mg PO BEDTIME polyethylene glycol 3350 (Miralax) 17 grams PO DAILY pravastatin 20 mg PO DAILY 90 days rivaroxaban (Xarelto) 20 mg PO DAILY Tobacco use date assessed: 07/13/23 Fall risk assessment: No Falls in past year Last assessed Fall Risk: 07/13/23 Dental Screening Dental Screen Date: 07/13/23 Did you have a dental visit in the last 12 months?: No Did you have a dental problem in the last 6 months where you did not have access to dental care?: No Was dental information given to patient?: Patient has dentist HPI 3M FU, rescheduled from 06/02/23 HPI Details Patient is 72-year-old female came in today for her regular follow-up appointment Patient has been fighting with respiratory infections since March, patient says that she was sick for a whole month of March with cough Then finally got better and then got sick again. Currently her asthma is exacerbated, she is using her maintenance inhaler and albuterol every 4 hour I am sending updraft machine for her, patient may use albuterol in after of machine every 6 hour. As needed Diabetes mellitus:? Continue glipizide 10 mg b.i.d. hemoglobin has been stable Hypertension:? Blood pressure is stable patient is on hydrochlorothiazide 25 mg, losartan 50 mg she is tolerating medication no side effects Anxiety/depression stable since she has stopped working Lipid disorder:? Continue pravastatin 20 mg labs to be done today. BMI is elevated need to lose weight Patient have severe peripheral vascular disease with varicosities she has seen Dr. Sherwood vascular specialist 2 years ago Patient does have a fatty liver as well but liver enzymes are stable.? Will continue to monitor Atrial fibrillation management through Cardiology Follow-up 3 months labs to be done next month order is in the system [facility] Medical History Pain of left calf Tubular adenoma Elevated ferritin Osteoporosis Elevated liver enzymes Colon cancer screening Paroxysmal A-fib Asthma Anxiety, generalized Lipid disorder Hypertension, essential Diabetes 1.5, managed as type 2 Surgical History History of colonoscopy Hx of breast biopsy History of liver biopsy History of section Hx of cholecystectomy Family History Father No problems noted. Mother Ovarian cancer Colon cancer Social History Housing: House Alcohol intake: never Patient Tobacco Use Status: Never used Tobacco e-Cigarette/Vaping Use: Never Used service: No Current occupational status: employed Cognitive needs: No Hearing needs: No Vision needs: Yes Questionnaire Thrive Questionnaire Date Thrive assessed: 10/31/21 SEAN-7 AMB Questionnaire SEAN-7 Date SEAN - 7 assessed: 10/31/21 Source: Developed by Drs. Bogdan So, Michelle Cuevas, Lamberto Pruett and colleagues, with an educational james from [employer]. Review of Systems Const Denies chills and Denies fever(s) ENT Denies epistaxis and Denies nasal discharge Card Denies chest pain Resp Denies hemoptysis GI Denies diarrhea and Denies nausea Skin/Breast Denies rash Neuro Reports no additional complaints Psych Reports no additional complaints Endo Reports no additional complaints Physical exam (Primary Care) Vital Signs: Last Vital Signs Pulse 79 07/13/23 13:35 BP 130/70 07/13/23 13:35 Pulse Ox 96 07/13/23 13:35 Oxygen Delivery Method Room Air 07/13/23 13:35 BMI result Body Mass Index 37.6 Tobacco/Smoking Status: Tobacco use Status Tobacco use date assessed 07/13/23 07/13/23 13:43 Patient Tobacco Use Status Never used Tobacco 07/13/23 13:43 e-Cigarette/Vaping Use Never Used 07/13/23 13:43 Thrive Assessment: Date of Thrive Assessment Date Thrive assessed 10/31/21 07/13/23 13:43 Const General: cooperative, comfortable and no acute distress Orientation/consciousness: patient oriented x3 HENMT Head: Yes normocephalic Eyes General: appearance normal, both eyes and all related structures Neck Neck: Yes supple Resp Effort & Inspection: normal respiratory effort, no cough and no stridor Cardio Rhythm: regular rhythm Heart sounds: S1 normal heart sound present and S2 normal heart sound present Skin General skin exam: turgor normal Neuro General: patient oriented x3, tone normal and moves all extremities Extrem Right lower extremity: no edema Left lower extremity: no edema Assessment and Plan Assessment & Plan (1) Asthma exacerbation: Code(s): J45.901 - Unspecified asthma with (acute) exacerbation Qualifiers: Asthma persistence: persistent Asthma severity: moderate Qualified Code(s): J45.41 - Moderate persistent asthma with (acute) exacerbation (2) Diabetes 1.5, managed as type 2: Code(s): E13.9 - Other specified diabetes mellitus without complications (3) Hypertension, essential: Code(s): I10 - Essential (primary) hypertension (4) Lipid disorder: Code(s): E78.9 - Disorder of lipoprotein metabolism, unspecified (5) Anxiety, generalized: Code(s): F41.1 - Generalized anxiety disorder (6) Asthma, moderate persistent: Code(s): J45.40 - Moderate persistent asthma, uncomplicated Qualifiers: Asthma complication type: uncomplicated Qualified Code(s): J45.40 - Moderate persistent asthma, uncomplicated (7) Obesity due to excess calories: Code(s): E66.09 - Other obesity due to excess calories Qualifiers: Body mass index: BMI 37.0-37.9 Obesity classification: adult class 2 (BMI 35 - 39.9) Serious obesity comorbidity presence: with serious comorbidity Qualified Code(s): E66.01 - Morbid (severe) obesity due to excess calories; Z68.37 - Body mass index [BMI] 37.0-37.9, adult (8) Paroxysmal A-fib: Code(s): I48.0 - Paroxysmal atrial fibrillation Plan Patient is 72-year-old female came in today for her regular follow-up appointment Patient has been fighting with respiratory infections since March, patient says that she was sick for a whole month of March with cough Then finally got better and then got sick again. Currently her asthma is exacerbated, she is using her maintenance inhaler and albuterol every 4 hour I am sending updraft machine for her, patient may use albuterol in after of machine every 6 hour. As needed Diabetes mellitus:? Continue glipizide 10 mg b.i.d. hemoglobin has been stable Hypertension:? Blood pressure is stable patient is on hydrochlorothiazide 25 mg, losartan 50 mg she is tolerating medication no side effects Anxiety/depression stable since she has stopped working Lipid disorder:? Continue pravastatin 20 mg labs to be done today. BMI is elevated need to lose weight Patient have severe peripheral vascular disease with varicosities she has seen Dr. Sherwood vascular specialist 2 years ago Patient does have a fatty liver as well but liver enzymes are stable.? Will continue to monitor Atrial fibrillation management through Cardiology Follow-up 3 months labs to be done next month order is in the system Medications: New [Updraft machine] As directed 1 ea 0RF J45.40 - Moderate persistent asthma, uncomplicated, J45.901 - Unspecified asthma with (acute) exacerbation albuterol sulfate 1.25 mg (3 mL) inhalation QID PRN 75 mL 0RF shortness of breath or wheezing Coding Level of Care Code Est Pt Level 4 (12558) Diagnoses Moderate persistent asthma with exacerbation J45.41 Asthma persistence: persistent Asthma severity: moderate Diabetes 1.5, managed as type 2 E13.9 Hypertension, essential I10 Lipid disorder E78.9 Anxiety, generalized F41.1 Moderate persistent asthma without complication J45.40 Asthma complication type: uncomplicated Class 2 severe obesity due to excess calories with serious comorbidity and body mass index (BMI) of 37.0 to 37.9 in adult E66.01; Z68.37 Body mass index: BMI 37.0-37.9 Obesity classification: adult class 2 (BMI 35 - 39.9) Serious obesity comorbidity presence: with serious comorbidity Paroxysmal A-fib I48.0
== END 2023-07-13 16:27 | disposition home or self-care (01) ==
PROVIDERS: PCP Internal Medicine; Visit Provider Internal Medicine
DX: E13.9 Other specified diabetes mellitus without complications (principal); E66.01 Morbid (severe) obesity due to excess calories; I48.0 Paroxysmal atrial fibrillation; Z68.37 Body mass index [BMI] 37.0-37.9, adult; J45.41 Moderate persistent asthma with (acute) exacerbation; E78.9 Disorder of lipoprotein metabolism, unspecified; I10 Essential (primary) hypertension; F41.1 Generalized anxiety disorder; J45.40 Moderate persistent asthma, uncomplicated
CPT/HCPCS: 99214

== ENCOUNTER 2023-08-24 09:44 | Outpatient (AMB) | payer MEDICARE, SELFPAY ==
--- NOTE | 2023-08-24 09:56 | MHC.OFFVIS ---
Intake Vital Signs 08/24/23 09:57 Height 5 ft 1 in Weight 200 lb 9.93 oz BMI 37.9 BP 110/60 Blood Pressure Location Lt brachial Position Sitting Pulse 78 Intake Visit Reasons: 6 month fu Intake Note: 6 MONTH FOLLOW UP PT FEELS GREAT Allergies vancomycin [VANCOMYCIN] Allergy (Intermediate, Verified 07/13/23 13:35) HIVES, ITCHING DEANNA Inhibitors Allergy (Mild, Verified 07/13/23 13:35) Cough lisinopril [LISINOPRIL] Allergy (Mild, Verified 07/13/23 13:35) COUGH Medication List - Last Reconciled 08/24/23 by PALBO Palacios albuterol sulfate 90 mcg/actuation 1 - 2 puffs inhalation BID PRN 30 days albuterol sulfate 1.25 mg (3 mL) inhalation QID PRN alendronate 70 mg PO QWEEK blood sugar diagnostic (FreeStyle Lite Strips) patient to check blood sugar once daily or as needed blood-glucose meter (FreeStyle Lite Meter kit) Patient to check blood sugar once daily or as needed budesonide-formoterol 160-4.5 mcg/actuation (Symbicort) 2 puffs PO BID 30 days cholecalciferol (vitamin D3) (Vitamin D3) 25 mcg PO DAILY docusate sodium 100 mg PO BEDTIME escitalopram oxalate 20 mg PO DAILY 90 days glipizide 10 mg PO BID 90 days hydrochlorothiazide 25 mg PO DAILY 90 days lancets (FreeStyle Lancets) Patient to check blood sugar once daily or as needed losartan 50 mg PO DAILY montelukast 10 mg PO BEDTIME polyethylene glycol 3350 (Miralax) 17 grams PO DAILY pravastatin 20 mg PO DAILY 90 days rivaroxaban (Xarelto) 20 mg PO DAILY [Updraft machine As directed] HPI 6 month fu HPI Details Kellie is a 72-year-old female past medical history of hypertension, diabetes, obesity, paroxysmal AFib who presents for follow-up. Today she reports she had various thicknesses throughout the winter, occurring since her last visit. She has young grandchildren and they bring illnesses to the house. She describes having URI and COVID. She says for the last 3 weeks she has been free of sickness. She is feels now back to her normal self. She has not had any issues with chest discomfort at rest or with activity. She denies having shortness of breath, PND, orthopnea or edema. She will notice heart palpitations when she lays down in bed at night at times. No palpitations during the day. No presyncope, syncope, falls. She describes herself as active. She helps care for her 2-year-old and 6-year-old grandchildren. No bleeding issues reported. Taking meds as directed. [facility] Medical History Pain of left calf Tubular adenoma Elevated ferritin Osteoporosis Elevated liver enzymes Colon cancer screening Paroxysmal A-fib Asthma Anxiety, generalized Lipid disorder Hypertension, essential Diabetes 1.5, managed as type 2 Surgical History History of colonoscopy Hx of breast biopsy History of liver biopsy History of section Hx of cholecystectomy Family History Father No problems noted. Mother Ovarian cancer Colon cancer Social History Housing: House Alcohol intake: never Patient Tobacco Use Status: Never used Tobacco e-Cigarette/Vaping Use: Never Used service: No Current occupational status: employed Cognitive needs: No Hearing needs: No Vision needs: Yes Review of Systems Const All systems reviewed & are unremarkable except as noted in HPI and below Denies weakness ENT Denies dizziness Card Details: palpitations at night at times Denies chest pain, Denies chest pain with activity, Denies syncope, Denies rapid heart rate, Denies pedal edema, Denies edema, Denies leg edema, Denies lightheadedness, Denies palpitations, Denies dyspnea, Reports dyspnea on exertion and Denies orthopnea Resp Denies cough, Denies dyspnea and Reports dyspnea on exertion GI Denies hematochezia and Denies change in stool character Musc Denies abnormal gait, Denies muscle cramps, Denies muscle weakness, Denies numbness, Denies radiating pain into limb and Denies tingling Neuro Denies abnormal gait, Denies dizziness, Denies syncope, Denies numbness, Denies tingling and Denies weakness Endo Denies palpitations Physical Exam Vital Signs: Last Vital Signs Pulse 78 08/24/23 09:57 BP 110/60 08/24/23 09:57 BMI result Body Mass Index 37.9 Const General: cooperative, healthy appearing, comfortable and no acute distress Orientation/consciousness: patient oriented x3 Neck Neck: Yes normal visual inspection Resp Effort & Inspection: normal respiratory effort Auscultation: clear to auscultation bilaterally, no rales, no rhonchi and no wheezes Cardio Jugular venous distension: no JVD Rate: regular rate Rhythm: regular rhythm Heart sounds: S1 normal heart sound present, S2 normal heart sound present, no gallops, no murmurs and no rubs Neuro General: patient oriented x3 Extrem Other: venous stasis changes General: Yes normal to inspection, No no pedal edema and No calf tenderness Psych Appearance: grossly normal Mental Status: mental status grossly normal Speech and movement: Normal speech and movement present Office Procedures EKG Details: Today, read by me, sinus rhythm with first-degree AV block, inferior Q-wave, rate 80, QTC 475ms [id number], Complete Assessment & Plan Assessment & Plan (1) Paroxysmal A-fib: Code(s): I48.0 - Paroxysmal atrial fibrillation Plan: History of paroxysmal atrial fibrillation. She has a sensitivity to caffeine and its consumption will increase her heart palpitations. She will notice heart palpitations at times when she lays down at night. No palpitations in the day. EKG done last visit showed atrial fibrillation, rate 67. She has not been on rate slowing agents. A Holter monitor was done on 02/26/2023 for 3 days did show sinus rhythm with average heart rate 67 with paroxysmal AFib 23% of the time however artifact was present and frequency was likely more than that, heart rate range 34-103, highest heart rate in AF 115. EKG done today shows sinus rhythm, first-degree AV block, rate 80. Will plan Holter monitor prior to her next visit. If rate slowing agent needed will consider diltiazem as she has history of asthma. She is on Xarelto for anticoagulation. No reports of bleeding. Labs done 05/12/2023 shows creatinine 0.74 continue avoidance stimulants. Call if having increasing palpitations. Periodically monitor pulse rate using home sat monitor and call if running greater than 100. Cardiology follow-up 6 months, sooner if needed (2) Chest discomfort: Code(s): R07.89 - Other chest pain Plan: Prior reports of epigastric discomfort. She does have a known history of GERD. Nuclear stress test was done on 10/09/2021 which showed normal myocardial perfusion imaging. An echocardiogram done 11/13/2021 showed EF 60-65%, no regional wall motion abnormalities and no valve abnormalities. She has no reports of exertional chest discomfort. She sleeps with her head of the bed partially elevated. She has not had any recent epigastric type symptoms. Her discomfort is most likely noncardiac in nature. Signs and symptoms of true angina reviewed with her. (3) Hypertension, essential: Code(s): I10 - Essential (primary) hypertension Plan: Well controlled at present time. Continue losartan, hydrochlorothiazide. Plan Time spent on chart review, documentation, interview and assessment Orders: Orders ECG 3 day holter monitor 5 Months I48.0 - Paroxysmal atrial fibrillation Medications: Changed From docusate sodium 100 mg PO BEDTIME 90 caps 4RF K59.00 - Constipation, unspecified To docusate sodium 100 mg PO BEDTIME K59.00 - Constipation, unspecified Coding Level of Care Code Est Pt Level 4 (98371) Diagnoses Paroxysmal A-fib I48.0 Chest discomfort R07.89 Hypertension, essential I10 CPT Codes EKG - CPT: [id number], Complete ([id number]) Time Spent (min) 28
[2023-08-24 09:57] VITALS: BP 110/60; PULSE 78; BMI 37.9
== END 2023-08-24 10:31 | disposition home or self-care (01) ==
PROVIDERS: PCP Internal Medicine; Visit Provider Nurse Practitioner Family
DX: I48.0 Paroxysmal atrial fibrillation (principal); R07.89 Other chest pain; I10 Essential (primary) hypertension
CPT/HCPCS: 93010; 99214

== ENCOUNTER → 2023-08-24 09:44 | Outpatient (BNVA) | payer MEDICARE, SELFPAY | PROVIDERS: PCP Internal Medicine; Visit Provider Nurse Practitioner Family | DX: I48.0 Paroxysmal atrial fibrillation (principal); I10 Essential (primary) hypertension; R07.89 Other chest pain | CPT/HCPCS: 93005; 99212 ==

== ENCOUNTER 2023-09-08 15:37 | Outpatient (AMB) | payer MEDICARE, SELFPAY ==
--- NOTE | 2023-09-08 15:42 | A.OFFPC_ITS ---
Vital Signs 09/08/23 15:43 Height 5 ft 1 in Weight 199 lb 6 oz BMI 37.7 BP 130/72 Blood Pressure Location Lt brachial Position Sitting Pulse 63 Pulse Source Pulse Oximeter Pulse Oximetry (%) 97 Oxygen Delivery Method Room Air Intake Visit Reasons: 6 month follow up Allergies vancomycin [VANCOMYCIN] Allergy (Intermediate, Verified 09/08/23 15:45) HIVES, ITCHING DEANNA Inhibitors Allergy (Mild, Verified 09/08/23 15:45) Cough lisinopril [LISINOPRIL] Allergy (Mild, Verified 09/08/23 15:45) COUGH Medication List - Last Reconciled 09/08/23 by Johny Adorno MD albuterol sulfate 1.25 mg (3 mL) inhalation QID PRN alendronate 70 mg PO QWEEK blood sugar diagnostic (FreeStyle Lite Strips) patient to check blood sugar once daily or as needed blood-glucose meter (FreeStyle Lite Meter kit) Patient to check blood sugar once daily or as needed budesonide-formoterol 160-4.5 mcg/actuation (Symbicort) 2 puffs PO BID 30 days cholecalciferol (vitamin D3) (Vitamin D3) 25 mcg PO DAILY docusate sodium 100 mg PO BEDTIME escitalopram oxalate 20 mg PO DAILY 90 days glipizide 10 mg PO BID 90 days hydrochlorothiazide 25 mg PO DAILY 90 days lancets (FreeStyle Lancets) Patient to check blood sugar once daily or as needed losartan 50 mg PO DAILY montelukast 10 mg PO BEDTIME polyethylene glycol 3350 (Miralax) 17 grams PO DAILY pravastatin 20 mg PO DAILY 90 days rivaroxaban (Xarelto) 20 mg PO DAILY [Updraft machine As directed] Tobacco use date assessed: 09/08/23 Fall risk assessment: No Falls in past year Last assessed Fall Risk: 09/08/23 Dental Screening Dental Screen Date: 09/08/23 Did you have a dental visit in the last 12 months?: No Did you have a dental problem in the last 6 months where you did not have access to dental care?: No Was dental information given to patient?: Patient has dentist HPI 6 month follow up HPI Details Patient is 72-year-old female came in today for her regular follow-up appointment Patient is doing She has started going to exercise program The goal is to lose 2 lb a month She has had visit with Cardiology early this month note reviewed Atrial fibrillation management through Cardiology office, patient is on Xarelto Diabetes mellitus:? Continue glipizide 10 mg 1 tablet in the morning and half at night Hypertension:? Blood pressure is stable patient is on hydrochlorothiazide 25 mg, losartan 50 mg she is tolerating medication no side effects Anxiety/depression stable patient is escitalopram 20 mg Lipid disorder:? Continue pravastatin 20 mg labs to be done today. Patient have severe peripheral vascular disease with varicosities she has seen Dr. Sherwood vascular specialist 2 years ago Patient does have a fatty liver as well but liver enzymes are stable.? Will continue to monitor Continue Fosamax for osteoporosis management Follow-up 3 months labs to be done next month order is in the system [facility] Medical History Pain of left calf Tubular adenoma Elevated ferritin Osteoporosis Elevated liver enzymes Colon cancer screening Paroxysmal A-fib Asthma Anxiety, generalized Lipid disorder Hypertension, essential Diabetes 1.5, managed as type 2 Surgical History History of colonoscopy Hx of breast biopsy History of liver biopsy History of section Hx of cholecystectomy Family History Father No problems noted. Mother Ovarian cancer Colon cancer Social History Housing: House Alcohol intake: never Patient Tobacco Use Status: Never used Tobacco e-Cigarette/Vaping Use: Never Used service: No Current occupational status: employed Cognitive needs: No Hearing needs: No Vision needs: Yes Questionnaire Thrive Questionnaire Date Thrive assessed: 10/31/21 AUDIT C Alcohol Use Questionnaire (AUDIT-C) 1. How often do you have a drink containing alcohol?: Never 3. How often do you have six or more drinks on one occasion?: Never Total Score: 0 Score Reviewed/Action Taken: Yes SEAN-7 AMB Questionnaire SEAN-7 Date SEAN - 7 assessed: 10/31/21 Source: Developed by Drs. Bogdan So, Michelle Cuevas, Lamberto Pruett and colleagues, with an educational james from [employer]. Review of Systems Const Denies chills and Denies fever(s) ENT Denies epistaxis and Denies nasal discharge Card Denies chest pain Resp Denies chest congestion, Denies cough and Denies hemoptysis GI Denies diarrhea and Denies nausea Skin/Breast Denies rash Neuro Reports no additional complaints Psych Reports no additional complaints Endo Reports no additional complaints Physical exam (Primary Care) Vital Signs: Last Vital Signs Pulse 63 09/08/23 15:43 BP 130/72 09/08/23 15:43 Pulse Ox 97 09/08/23 15:43 Oxygen Delivery Method Room Air 09/08/23 15:43 BMI result Body Mass Index 37.7 Tobacco/Smoking Status: Tobacco use Status Tobacco use date assessed 07/13/23 07/13/23 13:43 Patient Tobacco Use Status Never used Tobacco 07/13/23 13:43 e-Cigarette/Vaping Use Never Used 07/13/23 13:43 Thrive Assessment: Date of Thrive Assessment Date Thrive assessed 10/31/21 07/13/23 13:43 Const General: cooperative, comfortable and no acute distress Orientation/consciousness: patient oriented x3 HENMT Head: Yes normocephalic Eyes General: appearance normal, both eyes and all related structures Neck Neck: Yes supple Resp Effort & Inspection: normal respiratory effort, no cough and no stridor Cardio Heart sounds: S1 normal heart sound present and S2 normal heart sound present Skin General skin exam: turgor normal Neuro General: patient oriented x3, tone normal and moves all extremities Extrem Right lower extremity: no edema Left lower extremity: no edema Assessment and Plan Assessment & Plan (1) Diabetes 1.5, managed as type 2: Code(s): E13.9 - Other specified diabetes mellitus without complications (2) Hypertension, essential: Code(s): I10 - Essential (primary) hypertension (3) Lipid disorder: Code(s): E78.9 - Disorder of lipoprotein metabolism, unspecified (4) Anxiety, generalized: Code(s): F41.1 - Generalized anxiety disorder (5) Paroxysmal A-fib: Code(s): I48.0 - Paroxysmal atrial fibrillation (6) Asthma, moderate persistent: Code(s): J45.40 - Moderate persistent asthma, uncomplicated Qualifiers: Asthma complication type: uncomplicated Qualified Code(s): J45.40 - Moderate persistent asthma, uncomplicated (7) Obesity due to excess calories: Code(s): E66.09 - Other obesity due to excess calories Qualifiers: Obesity classification: adult class 2 (BMI 35 - 39.9) Serious obesity comorbidity presence: with serious comorbidity Body mass index: BMI 37.0-37.9 Qualified Code(s): E66.01 - Morbid (severe) obesity due to excess calories; Z68.37 - Body mass index [BMI] 37.0-37.9, adult Plan Patient is 72-year-old female came in today for her regular follow-up appointment Patient is doing She has started going to exercise program The goal is to lose 2 lb a month She has had visit with Cardiology early this month note reviewed Atrial fibrillation management through Cardiology office, patient is on Xarelto Asthma is stable now she may stop the updraft machine and start Advair Diskus b.i.d. Patient is aware that she need to rinse her mouth after Diabetes mellitus:? Continue glipizide 10 mg 1 tablet in the morning and half at night Hypertension:? Blood pressure is stable patient is on hydrochlorothiazide 25 mg, losartan 50 mg she is tolerating medication no side effects Anxiety/depression stable patient is escitalopram 20 mg Lipid disorder:? Continue pravastatin 20 mg labs to be done today. Patient have severe peripheral vascular disease with varicosities she has seen Dr. Sherwood vascular specialist 2 years ago Patient does have a fatty liver as well but liver enzymes are stable.? Will continue to monitor Continue Fosamax for osteoporosis management Follow-up 3 months labs to be done next month order is in the system Orders: Orders Complete Blood Count Auto Diff Today E13.9 - Other specified diabetes mellitus without complications, E78.9 - Disorder of lipoprotein metabolism, unspecified, F41.1 - Generalized anxiety disorder, I10 - Essential (primary) hypertension, I48.0 - Paroxysmal atrial fibrillation, J45.40 - Moderate persistent asthma, uncomplicated Lipid Panel Today E13.9 - Other specified diabetes mellitus without complications, E78.9 - Disorder of lipoprotein metabolism, unspecified, F41.1 - Generalized anxiety disorder, I10 - Essential (primary) hypertension, I48.0 - Paroxysmal atrial fibrillation, J45.40 - Moderate persistent asthma, uncomplicated Hemoglobin A1c Today E13.9 - Other specified diabetes mellitus without complications, E78.9 - Disorder of lipoprotein metabolism, unspecified, F41.1 - Generalized anxiety disorder, I10 - Essential (primary) hypertension, I48.0 - Paroxysmal atrial fibrillation, J45.40 - Moderate persistent asthma, uncomplicated Microalbumin, Random (w Creat) Today E13.9 - Other specified diabetes mellitus without complications, E78.9 - Disorder of lipoprotein metabolism, unspecified, F41.1 - Generalized anxiety disorder, I10 - Essential (primary) hypertension, I48.0 - Paroxysmal atrial fibrillation, J45.40 - Moderate persistent asthma, uncomplicated Comprehensive [place]. Panel Fast Today E13.9 - Other specified diabetes mellitus without complications, E78.9 - Disorder of lipoprotein metabolism, unspecified, F41.1 - Generalized anxiety disorder, I10 - Essential (primary) hypertension, I48.0 - Paroxysmal atrial fibrillation, J45.40 - Moderate persistent asthma, unc omplicated Medications: New fluticasone propion-salmeterol 250-50 mcg/dose (Advair Diskus) 1 inh inhalation BID 60 ea 0RF Refilled glipizide One in the morning and half at night 10 mg PO BID 90 days 135 tabs 0RF Discontinued budesonide-formoterol 160-4.5 mcg/actuation (Symbicort) Discontinued Reason: Doctor's Order 2 puffs PO BID 30 days 10.2 grams 1RF Coding Level of Care Code Est Pt Level 4 (81278) Diagnoses Diabetes 1.5, managed as type 2 E13.9 Hypertension, essential I10 Lipid disorder E78.9 Anxiety, generalized F41.1 Paroxysmal A-fib I48.0 Moderate persistent asthma without complication J45.40 Asthma complication type: uncomplicated Class 2 severe obesity due to excess calories with serious comorbidity and body mass index (BMI) of 37.0 to 37.9 in adult E66.01; Z68.37 Obesity classification: adult class 2 (BMI 35 - 39.9) Serious obesity comorbidity presence: with serious comorbidity Body mass index: BMI 37.0-37.9
[2023-09-08 15:43] VITALS: BP 130/72; PULSE 63; O2SAT 97; BMI 37.7
== END 2023-09-08 16:18 | disposition home or self-care (01) ==
PROVIDERS: PCP Internal Medicine; Visit Provider Internal Medicine
DX: E13.9 Other specified diabetes mellitus without complications (principal); I48.0 Paroxysmal atrial fibrillation; E66.01 Morbid (severe) obesity due to excess calories; Z68.37 Body mass index [BMI] 37.0-37.9, adult; I10 Essential (primary) hypertension; E78.9 Disorder of lipoprotein metabolism, unspecified; F41.1 Generalized anxiety disorder; J45.40 Moderate persistent asthma, uncomplicated
CPT/HCPCS: 99214

== ENCOUNTER 2023-09-30 11:15 | Outpatient (REF) | payer MEDICARE, SELFPAY ==
--- NOTE | ~2023-09-30 | MM_ITS ---
EXAMINATION: MM SCREENING DIGITAL BREAST TOMOSYNTHESIS, BILATERAL CLINICAL INFORMATION: Screening. Asymptomatic. COMPARISON: Mammography: This study is compared with prior exams dating back to 2016. TECHNIQUE: Digital breast tomosynthesis is performed in both the craniocaudal and mediolateral oblique views along with computer-aided detection (CAD). Synthesized 2D images are generated from the tomosynthesis. FINDINGS: The breasts are almost entirely fatty (ACR BI-RADS breast composition Category a). There are no significant masses, abnormal calcifications, or other abnormalities. There is a tissue marker present in the right breast from prior benign percutaneous biopsy. MM/MM tomosynthesis screening BI IMPRESSION: No mammographic evidence of malignancy. ASSESSMENT: BI-RADS BI-RADS 2 - Benign Findings RECOMMENDATION: Routine annual mammography screening. 1 year F/U This examination should not preclude the clinical evaluation of a suspicious palpable abnormality. This patient's information was entered into a reminder system with a target due date for their next mammogram.
== END 2023-09-30 11:16 | disposition home or self-care (01) ==
LOC: HO.MAMMO 11:15
PROVIDERS: PCP Internal Medicine; Visit Provider Internal Medicine
DX: Z12.31 Encounter for screening mammogram for malignant neoplasm of breast (principal)
CPT/HCPCS: 77063; 77067

== ENCOUNTER → 2023-09-30 11:30 | Outpatient (BNV) | payer MEDICARE, SELFPAY | PROVIDERS: PCP Internal Medicine; Visit Provider Radiology Diagnostic Radiology | DX: Z12.31 Encounter for screening mammogram for malignant neoplasm of breast (principal) | CPT/HCPCS: 77063; 77067 ==

== ENCOUNTER 2023-11-23 08:42 | Outpatient (AMB) | payer MEDICARE, SELFPAY ==
--- NOTE | 2023-11-23 08:45 | MHC.OFFVIS ---
Vital Signs 11/23/23 08:50 Height 5 ft 1 in Weight 194 lb 14.218 oz BMI 36.8 BP 120/66 Blood Pressure Location Lt brachial Position Sitting Pulse 70 Pulse Source Pulse Oximeter Pulse Oximetry (%) 96 Oxygen Delivery Method Room Air Intake Visit Reasons: 8 month follow up discuss colonoscopy Intake Note: Kellie presents in office today for a scheduled FUV and colo scrn. CC; Pt denies any significant concerns or sx. Pt is aware that she is due for a colo s/p. Pt reports that her last colo s/p was approx. 04/2021. Rapier Insertion Loom Fixer Required: No Allergies vancomycin [VANCOMYCIN] Allergy (Intermediate, Verified 11/23/23 08:49) HIVES, ITCHING DEANNA Inhibitors Allergy (Mild, Verified 11/23/23 08:49) Cough lisinopril [LISINOPRIL] Allergy (Mild, Verified 11/23/23 08:49) COUGH HPI HPI 8 month follow up discuss colonoscopy: Details: LAST VISIT: Elevated liver enzymes Constipation Patient was encouraged to continue low fat diet. Patient was encouraged to lose weight. Patient started walking. Patient was encouraged to continue taking MiraLax on as needed basis to help her with her bowels. Patient will be due to go for colonoscopy next year I will see her in 8 months, sooner on as needed basis. Patient is agreeable to this plan and verbalizes understanding of instructions. She was given the opportunity to ask questions and all questions answered. TODAY'S VISIT Patient is here today for follow-up and to discuss going for colonoscopy. Patient denies any abdominal pain. Reports to be feeling well since she retired last year. Patient is going to the bathroom well. Patient denies melena, hematochezia, unintentional weight loss or ribbon like stools. Patient reports that there was a period when she had severe acid reflux and was on Prilosec for few weeks, however since then she has been feeling well and has no issues. Patient reports to have good appetite. Denies any issues with anesthesia in the past. Currently patient is on Xarelto for PAF. Patient has appointment with Cardiology in February will ask for risk stratification. Patient denies any cardiac or respiratory symptoms. Patient is on glipizide [facility] Medical History Pain of left calf Tubular adenoma Elevated ferritin Osteoporosis Elevated liver enzymes Colon cancer screening Paroxysmal A-fib Asthma Anxiety, generalized Lipid disorder Hypertension, essential Diabetes 1.5, managed as type 2 Surgical History History of colonoscopy Hx of breast biopsy History of liver biopsy History of section Hx of cholecystectomy Family History Father No problems noted. Mother Ovarian cancer Colon cancer Social History Housing: House Alcohol intake: never Patient Tobacco Use Status: Never used Tobacco e-Cigarette/Vaping Use: Never Used service: No Current occupational status: employed Cognitive needs: No Hearing needs: No Vision needs: Yes Review of Systems Const Denies weight gain and Denies weight loss ENT Reports no additional complaints, Denies dysphagia and Denies odynophagia Card Reports no additional complaints Resp Reports no additional complaints GI Denies abdominal pain, Denies belching, Denies melena, Denies bloating, Denies change in bowel habits, Denies dysphagia, Denies excessive flatus, Denies dyspepsia, Denies heartburn, Denies diarrhea, Denies loose stools, Denies nausea, Denies odynophagia and Denies vomiting Musc Reports no additional complaints Neuro Reports no additional complaints Psych Reports no additional complaints Endo Reports no additional complaints Physical Exam Vital Signs: BMI result Body Mass Index 36.8 Const General: healthy appearing and no acute distress Nutritional Appearance: obese Orientation/consciousness: patient oriented x3 Resp Effort & Inspection: normal respiratory effort, able to speak in complete sentences, no tracheal deviation and symmetric chest movement Auscultation: clear to auscultation bilaterally Cardio Rate: regular rate GI Inspection: Yes normal to inspection, No distended and Yes obesity Palpation (GI): Soft to palpation, not firm, nontender and No hepatosplenomegaly present Auscultation: normal bowel sounds General: Yes no CVA tenderness Back/Spine/Pelvis Back: no CVA tenderness Skin General skin exam: elasticity normal, turgor normal and dry skin Neuro General: patient oriented x3 Psych Appearance: grossly normal Mental Status: mental status grossly normal Assessment & Plan Assessment & Plan (1) Constipation: Code(s): K59.00 - Constipation, unspecified Qualifiers: Constipation type: slow transit constipation Qualified Code(s): K59.01 - Slow transit constipation (2) Screen for colon cancer: Code(s): Z12.11 - Encounter for screening for malignant neoplasm of colon Plan Continue current bowel regimen with Colace and MiraLax. Stressed the importance of good bowel prep day before procedure as well as clear liquid diet. Patient is on glipizide. Patient has an appointment with Cardiology in February will ask for risk stratification. Currently patient denies any cardiac or respiratory symptoms. No issues with anesthesia in the past. No history of sleep apnea. Patient is on Xarelto and if cleared will need to stop Xarelto 48 hours before the procedure. Patient is agreeable to plan of care and verbalizes understanding of instructions. She was given the opportunity to ask questions and all questions answered. Thank you for allowing me to participate in her care Medications: New bisacodyl (Dulcolax (bisacodyl)) take 4 tabs at noon the day before your colonoscopy 20 mg (4 x 5 mg) PO ONCE 1 day 4 tabs 0RF Z12.11 - Encounter for screening for malignant neoplasm of colon polyethylene glycol 3350 (Miralax) As directed by gastroenterology department at [facility] 238 grams PO ONCE 238 grams 0RF Z12.11 - Encounter for screening for malignant neoplasm of colon Coding Level of Care Code Est Pt Level 3 (11125) Diagnoses Slow transit constipation K59.01 Constipation type: slow transit constipation Screen for colon cancer Z12.11 Time Spent (min) 30 Comment 20 minutes spent with patient and additional 10 minutes spent reviewing her records
[2023-11-23 08:50] VITALS: BP 120/66; PULSE 70; O2SAT 96; BMI 36.8
== END 2023-11-23 10:00 | disposition home or self-care (01) ==
PROVIDERS: PCP Internal Medicine; Visit Provider Nurse Practitioner Family
DX: K59.01 Slow transit constipation (principal); Z12.11 Encounter for screening for malignant neoplasm of colon
CPT/HCPCS: 99213

== ENCOUNTER → 2023-11-23 08:42 | Outpatient (BNVA) | payer MEDICARE, SELFPAY | PROVIDERS: PCP Internal Medicine; Visit Provider Nurse Practitioner Family | DX: K59.01 Slow transit constipation (principal); R74.8 Abnormal levels of other serum enzymes; Z12.11 Encounter for screening for malignant neoplasm of colon; Z79.01 Long term (current) use of anticoagulants | CPT/HCPCS: 99212 ==

== ENCOUNTER 2023-11-29 09:49 | Outpatient (REF) | payer MEDICARE, SELFPAY ==
[2023-11-29 13:21] LABS: MANUAL DIFF FLAG NO
[2023-11-29 13:39] LABS: Basophils Percent Auto 0.6 % (0-2); Eosinophils Absolute Auto 0.1 X10*3/uL (0.0-0.4); Eosinophils Percent Auto 1.9 % (0-4); Hematocrit 37.8 % (37.0-47.0); Hemoglobin 12.2 g/dl (12.0-16.0); Imm Gran Abs Auto 0.02 X10*3/uL (0.00-0.03); Imm Gran Pct Auto 0.4 % (0.0-0.4); Lymphocytes Absolute Auto 0.9 X10*3/uL (1.2-4.9); Lymphocytes Percent Auto 20.3 % (20-40); Mean Corpuscular HGB Conc 32.3 g/dl (31.0-35.0); Mean Corpuscular Hemoglobin 30.3 pg (27.0-33.0); Mean Corpuscular Volume 93.8 fL (80.0-98.0); Mean Platelet Volume 11.8 fL (9.4-12.3); Monocytes Absolute Auto 0.3 X10*3/uL (0.1-1.2); Monocytes Percent Auto 5.4 % (2-11); Neutrophils Absolute Auto 3.3 x10*3/uL (2.0-8.3); Neutrophils Percent Auto 71.4 % (45-73); Platelet Count 139 X10*3/uL (160-400); Red Blood Count 4.03 X10*6/uL (4.20-5.50); Red Cell Distribution Width 13.5 % (11.0-16.0); White Blood Count 4.6 X10*3/uL (4.8-10.8)
[2023-11-29 13:51] LABS: Estimated Average Glucose 131 mg/dL; Hemoglobin A1c % 6.2 % (<6.0)
[2023-11-29 14:00] LABS: Alanine Aminotransferase 29 U/L (0-31); Albumin Level 3.8 g/dL (3.5-5.0); Alkaline Phosphatase 57 U/L (39-117); Anion Gap 15 (12-20); Aspartate Amino Transferase 34 U/L (5-31); Bilirubin Total 0.7 mg/dL (0.0-1.0); Blood Urea Nitrogen 16 mg/dL (9-16); Carbon Dioxide 25 mmol/L (22-29); Chloride 104 mmol/L (96-108); Cholesterol 142 mg/dL (<200); Estimated Glomerular Filt Rate > 60; Glucose Fasting 159 mg/dL (60-99); HDL Cholesterol 47 mg/dL (>40); LDL Cholesterol Calculated 72 mg/dL (<100); Potassium 4.5 mmol/L (3.3-5.1); Sodium 139 mmol/L (135-145); Total Protein 7.2 g/dL (6.5-8.0); Triglycerides 116 mg/dL (<150)
[2023-11-29 14:15] LABS: Creatinine Urine 189.85 mg/dL; Microalbum/Creatinine Ratio Ur 12.1 ug/mg cr (<30)
== END 2023-11-29 09:50 | disposition home or self-care (01) ==
LOC: HO.HMGCLDS 09:49
PROVIDERS: PCP Internal Medicine; Visit Provider Internal Medicine
DX: E13.9 Other specified diabetes mellitus without complications (principal); I10 Essential (primary) hypertension; E78.9 Disorder of lipoprotein metabolism, unspecified; F41.1 Generalized anxiety disorder; I48.0 Paroxysmal atrial fibrillation; J45.40 Moderate persistent asthma, uncomplicated
CPT/HCPCS: 36415; 80053; 80061; 82043; 82570; 83036; 85025

== ENCOUNTER 2023-12-01 11:18 | Outpatient (AMB) | payer MEDICARE, SELFPAY ==
--- NOTE | 2023-12-01 11:20 | A.OFFPC_ITS ---
Vital Signs 12/01/23 11:22 Height 5 ft 1 in Weight 194 lb 8 oz BMI 36.7 BP 132/80 Blood Pressure Location Rt brachial Position Sitting Pulse 59 Pulse Source Pulse Oximeter Pulse Oximetry (%) 98 Oxygen Delivery Method Room Air Intake Visit Reasons: 9 month follow up Allergies vancomycin [VANCOMYCIN] Allergy (Intermediate, Verified 12/01/23 11:22) HIVES, ITCHING DEANNA Inhibitors Allergy (Mild, Verified 12/01/23 11:22) Cough lisinopril [LISINOPRIL] Allergy (Mild, Verified 12/01/23 11:22) COUGH Medication List - Last Reconciled 12/01/23 by Johny Adorno MD albuterol sulfate 1.25 mg (3 mL) inhalation QID PRN alendronate 70 mg PO QWEEK bisacodyl (Dulcolax (bisacodyl)) 20 mg (4 x 5 mg) PO ONCE 1 day blood sugar diagnostic (FreeStyle Lite Strips) patient to check blood sugar once daily or as needed blood-glucose meter (FreeStyle Lite Meter kit) Patient to check blood sugar once daily or as needed cholecalciferol (vitamin D3) (Vitamin D3) 25 mcg PO DAILY docusate sodium 100 mg PO BEDTIME escitalopram oxalate 20 mg PO DAILY 90 days fluticasone propion-salmeterol 250-50 mcg/dose (Advair Diskus) 1 inh inhalation BID glipizide 10 mg PO BID 90 days hydrochlorothiazide 25 mg PO DAILY 90 days lancets (FreeStyle Lancets) Patient to check blood sugar once daily or as needed losartan 50 mg PO DAILY montelukast 10 mg PO BEDTIME polyethylene glycol 3350 (Miralax) 17 grams PO DAILY polyethylene glycol 3350 (Miralax) 238 grams PO ONCE pravastatin 20 mg PO DAILY 90 days rivaroxaban (Xarelto) 20 mg PO DAILY [[employer] machine As directed] Tobacco use date assessed: 09/08/23 Dental Screening Dental Screen Date: 09/08/23 HPI 9 month follow up HPI Details Patient is 72-year-old female came in today for her regular follow-up appointment Lost 6 lb since August, goes to [facility] for exercise Feeling better Lab ordered for February Hemoglobin A1c recent labs 6.2%, had eye exam last month [facility] Atrial fibrillation management through Cardiology office, patient is on Xarelto Asthma is stable taking Advair Diskus b.i.d. Patient is aware that she need to rinse her mouth after Diabetes mellitus:? Continue glipizide 10 mg 1 tablet in the morning and half at night Hypertension:? Blood pressure is stable patient is on hydrochlorothiazide 25 mg, losartan 50 mg she is tolerating medication no side effects Anxiety/depression stable patient is escitalopram 20 mg Lipid disorder:? Continue pravastatin 20 mg labs to be done today. Patient have severe peripheral vascular disease with varicosities she has seen Dr. Sherwood vascular specialist 2 years ago Patient does have a fatty liver as well but liver enzymes are stable.? Will continue to monitor Continue Fosamax for osteoporosis management Follow-up 3 months [facility] Medical History Pain of left calf Tubular adenoma Elevated ferritin Osteoporosis Elevated liver enzymes Colon cancer screening Paroxysmal A-fib Asthma Anxiety, generalized Lipid disorder Hypertension, essential Diabetes 1.5, managed as type 2 Surgical History History of colonoscopy Hx of breast biopsy History of liver biopsy History of section Hx of cholecystectomy Family History Father No problems noted. Mother Ovarian cancer Colon cancer Social History Housing: House Alcohol intake: never Patient Tobacco Use Status: Never used Tobacco e-Cigarette/Vaping Use: Never Used service: No Current occupational status: employed Cognitive needs: No Hearing needs: No Vision needs: Yes Questionnaire PHQ-9 Over the last 2 weeks, how often have you been bothered by any of the following problems? 1. Little interest or pleasure in doing things: not at all 2. Feeling down, depressed, or hopeless: not at all 3. Trouble falling or staying asleep, or sleeping too much: not at all 4. Feeling tired or having little energy: nearly every day 5. Poor appetite or overeating: more than half the days 6. Feeling bad about yourself - or that you are a failure or have let yourself or your family down: more than half the days 7. Trouble concentrating on things, such as reading the newspaper or watching television: not at all 8. Moving or speaking so slowly that other people could have noticed. Or the opposite - being so fidgety or restless that you have been moving around a lot more than usual: not at all 9. Thoughts that you would be better off or of hurting yourself in some way: not at all Total score: 7 Depression Screening Interpretation: Negative Depression Screening Done: Yes 54120 - PHQ-9 Billing: Yes Source: Developed by Drs. Bogdan So, Michelle Cuevas, Lamberto Pruett and colleagues, with an educational james from [employer]. Thrive Questionnaire Date Thrive assessed: 10/31/21 SEAN-7 AMB Questionnaire SEAN-7 Date SEAN - 7 assessed: 10/31/21 Source: Developed by Drs. Bogdan So, Michelle Cuevas, Lamberto Pruett and colleagues, with an educational james from [employer]. Review of Systems Const Denies chills and Denies fever(s) ENT Denies epistaxis and Denies nasal discharge Card Denies chest pain Resp Denies chest congestion, Denies cough and Denies hemoptysis GI Denies diarrhea and Denies nausea Skin/Breast Denies rash Neuro Reports no additional complaints Psych Reports no additional complaints Endo Reports no additional complaints Physical exam (Primary Care) Vital Signs: Last Vital Signs Pulse 59 12/01/23 11:22 BP 132/80 12/01/23 11:22 Pulse Ox 98 12/01/23 11:22 Oxygen Delivery Method Room Air 12/01/23 11:22 BMI result Body Mass Index 36.7 Tobacco/Smoking Status: Tobacco use Status Tobacco use date assessed 09/08/23 12/01/23 11:20 Patient Tobacco Use Status Never used Tobacco 12/01/23 11:20 e-Cigarette/Vaping Use Never Used 12/01/23 11:20 Depression Screening Interpretation: Negative Thrive Assessment: Date of Thrive Assessment Date Thrive assessed 10/31/21 12/01/23 11:20 Const General: cooperative, comfortable and no acute distress Orientation/consciousness: patient oriented x3 HENMT Head: Yes normocephalic Eyes General: appearance normal, both eyes and all related structures Neck Neck: Yes supple Resp Effort & Inspection: normal respiratory effort, no cough and no stridor Cardio Rhythm: regular rhythm Heart sounds: S1 normal heart sound present and S2 normal heart sound present Skin General skin exam: turgor normal Neuro General: patient oriented x3, tone normal and moves all extremities Extrem Right lower extremity: no edema Left lower extremity: no edema Assessment and Plan Assessment & Plan (1) Diabetes 1.5, managed as type 2: Code(s): E13.9 - Other specified diabetes mellitus without complications (2) Hypertension, essential: Code(s): I10 - Essential (primary) hypertension (3) Lipid disorder: Code(s): E78.9 - Disorder of lipoprotein metabolism, unspecified (4) Anxiety, generalized: Code(s): F41.1 - Generalized anxiety disorder (5) Paroxysmal A-fib: Code(s): I48.0 - Paroxysmal atrial fibrillation (6) Asthma, moderate persistent: Code(s): J45.40 - Moderate persistent asthma, uncomplicated Qualifiers: Asthma complication type: uncomplicated Qualified Code(s): J45.40 - Moderate persistent asthma, uncomplicated (7) Obesity due to excess calories: Code(s): E66.09 - Other obesity due to excess calories Qualifiers: Body mass index: BMI 37.0-37.9 Obesity classification: adult class 2 (BMI 35 - 39.9) Serious obesity comorbidity presence: with serious comorbidity Qualified Code(s): E66.01 - Morbid (severe) obesity due to excess calories; Z68.37 - Body mass index [BMI] 37.0-37.9, adult Plan Patient is 72-year-old female came in today for her regular follow-up appointment Lost 6 lb since August, goes to [facility] for exercise Feeling better Lab ordered for February Hemoglobin A1c recent labs 6.2%, had eye exam last month Eye and [facility] Atrial fibrillation management through Cardiology office, patient is on Xarelto Asthma is stable taking Advair Diskus b.i.d. Patient is aware that she need to rinse her mouth after Diabetes mellitus:? Continue glipizide 10 mg 1 tablet in the morning and half at night Hypertension:? Blood pressure is stable patient is on hydrochlorothiazide 25 mg, losartan 50 mg she is tolerating medication no side effects Anxiety/depression stable patient is escitalopram 20 mg Lipid disorder:? Continue pravastatin 20 mg labs to be done today. Patient have severe peripheral vascular disease with varicosities she has seen Dr. Sherwood vascular specialist 2 years ago Patient does have a fatty liver as well but liver enzymes are stable.? Will continue to monitor Continue Fosamax for osteoporosis management Follow-up 3 months Orders: Orders Microalbumin, Random (w Creat) 3 Months E13.9 - Other specified diabetes mellitus without complications, E66.01 - Morbid (severe) obesity due to excess calories, E78.9 - Disorder of lipoprotein metabolism, unspecified, F41.1 - Generalized anxiety disorder, I10 - Essential (primary) hypertension, I48.0 - Paroxysmal atrial fibrillation, J45.40 - Moderate persistent asthma, uncomplicated, Z68.37 - Body mass index [BMI] 37.0-37.9, adult Complete Blood Count Auto Diff 3 Months E13.9 - Other specified diabetes mellitus without complications, E66.01 - Morbid (severe) obesity due to excess calories, E78.9 - Disorder of lipoprotein metabolism, unspecified, F41.1 - Generalized anxiety disorder, I10 - Essential (primary) hypertension, I48.0 - Paroxysmal atrial fibrillation, J45.40 - Moderate persistent asthma, uncomplicated, Z68.37 - Body mass index [BMI] 37.0-37.9, adult Comprehensive Met. Panel 3 Months E13.9 - Other specified diabetes mellitus without complications, E66.01 - Morbid (severe) obesity due to excess calories, E78.9 - Disorder of lipoprotein metabolism, unspecified, F41.1 - Generalized anxiety disorder, I10 - Essential (primary) hypertension, I48.0 - Paroxysmal atrial fibrillation, J45.40 - Moderate persistent asthma, uncomplicated, Z68.37 - Body mass index [BMI] 37.0-37.9, adult Hemoglobin A1c 3 Months E13.9 - Other specified diabetes mellitus without complications, E66.01 - Morbid (severe) obesity due to excess calories, E78.9 - Disorder of lipoprotein metabolism, unspecified, F41.1 - Generalized anxiety disorder, I10 - Essential (primary) hypertension, I48.0 - Paroxysmal atrial fibrillation, J45.40 - Moderate persistent asthma, uncomplicated, Z68.37 - Body mass index [BMI] 37.0-37.9, adult Medications: New albuterol sulfate 90 mcg/actuation (Ventolin HFA) 1 inh inhalation QID 30 days PRN 6.7 grams 2RF shortness of breath or wheezing Refilled hydrochlorothiazide 25 mg PO DAILY 90 days 90 tabs 1RF glipizide One in the morning and half at night 10 mg PO BID 90 days 135 tabs 0RF escitalopram oxalate 20 mg PO DAILY 90 days 90 tabs 0RF Anxiety Coding Level of Care Code Est Pt Level 4 (00856) Complex EM visit Add On G2211 Diagnoses Diabetes 1.5, managed as type 2 E13.9 Hypertension, essential I10 Lipid disorder E78.9 Anxiety, generalized F41.1 Paroxysmal A-fib I48.0 Moderate persistent asthma without complication J45.40 Asthma complication type: uncomplicated Class 2 severe obesity due to excess calories with serious comorbidity and body mass index (BMI) of 37.0 to 37.9 in adult E66.01; Z68.37 Body mass index: BMI 37.0-37.9 Obesity classification: adult class 2 (BMI 35 - 39.9) Serious obesity comorbidity presence: with serious comorbidity
[2023-12-01 11:22] VITALS: BP 132/80; PULSE 59; O2SAT 98; BMI 36.7
== END 2023-12-01 12:39 | disposition home or self-care (01) ==
PROVIDERS: PCP Internal Medicine; Visit Provider Internal Medicine
DX: E13.9 Other specified diabetes mellitus without complications (principal); I48.0 Paroxysmal atrial fibrillation; E66.01 Morbid (severe) obesity due to excess calories; Z68.37 Body mass index [BMI] 37.0-37.9, adult; I10 Essential (primary) hypertension; E78.9 Disorder of lipoprotein metabolism, unspecified; F41.1 Generalized anxiety disorder; J45.40 Moderate persistent asthma, uncomplicated
CPT/HCPCS: 99214; G2211

== ENCOUNTER → 2024-01-24 11:15 | Outpatient (REF) | payer MEDICARE, SELFPAY ==
--- NOTE | 2024-01-24 11:17 | HM_ITS ---
* Total monitoring time 3 days. * Underlying rhythm is sinus with an average rate of 66/Min. * Atrial fibrillation present. Overall burden 37%. Fastest 118/Min. Longest episode 14 hours 42 minutes. * Rare supraventricular ectopy. * Rare ventricular ectopy. Couplets noted. * No significant pauses or high-grade AV blocks. * Patient marker used in association with atrial fibrillation. * Leg cramps, losing balance, fall associated with atrial fibrillation at 104/min. MTDD
== END ==
LOC: HO.CARD 11:15
PROVIDERS: PCP Internal Medicine; Visit Provider Nurse Practitioner Family
DX: I48.0 Paroxysmal atrial fibrillation (principal)
CPT/HCPCS: 93242

== ENCOUNTER → 2024-01-24 11:17 | Outpatient (BNV) | payer MEDICARE, SELFPAY | PROVIDERS: PCP Internal Medicine; Visit Provider Internal Medicine | DX: I48.91 Unspecified atrial fibrillation (principal) | CPT/HCPCS: 93244 ==

== ENCOUNTER 2024-02-24 08:41 | Outpatient (AMB) | payer MEDICARE, SELFPAY ==
[2024-02-24 08:55] VITALS: BP 120/62; PULSE 54; BMI 37.1
--- NOTE | 2024-02-24 08:55 | A.OFFVIS_ITS ---
Vital Signs 02/24/24 08:55 Height 5 ft 1 in Weight 196 lb 3.382 oz BMI 37.1 BP 120/62 Blood Pressure Location Lt brachial Position Sitting Pulse 54 Pulse Source Monitor Intake Visit Reasons: 6 mth f/up/clear colonoscopy Allergies vancomycin [VANCOMYCIN] Allergy (Intermediate, Verified 12/01/23 11:22) HIVES, ITCHING DEANNA Inhibitors Allergy (Mild, Verified 12/01/23 11:22) Cough lisinopril [LISINOPRIL] Allergy (Mild, Verified 12/01/23 11:22) COUGH Medication List - Last Reconciled 02/24/24 by Geoff Serra MD albuterol sulfate 1.25 mg (3 mL) inhalation QID PRN albuterol sulfate 90 mcg/actuation (Ventolin HFA) 1 inh inhalation QID PRN 30 days alendronate 70 mg PO QWEEK bisacodyl (Dulcolax (bisacodyl)) 20 mg (4 x 5 mg) PO ONCE 1 day blood sugar diagnostic (FreeStyle Lite Strips) patient to check blood sugar once daily or as needed blood-glucose meter (FreeStyle Lite Meter kit) Patient to check blood sugar once daily or as needed cholecalciferol (vitamin D3) (Vitamin D3) 25 mcg PO DAILY docusate sodium 100 mg PO BEDTIME escitalopram oxalate 20 mg PO DAILY 90 days fluticasone propion-salmeterol 250-50 mcg/dose (Advair Diskus) 1 inh inhalation BID glipizide 10 mg PO BID 90 days hydrochlorothiazide 25 mg PO DAILY 90 days lancets (FreeStyle Lancets) Patient to check blood sugar once daily or as needed losartan 50 mg PO DAILY montelukast 10 mg PO BEDTIME polyethylene glycol 3350 (Miralax) 238 grams PO ONCE pravastatin 20 mg PO DAILY 90 days rivaroxaban (Xarelto) 20 mg PO DAILY [[employer] machine As directed] HPI Comments Details: Kellie comes for follow-up. She has been doing well from cardiac perspective. She continues to have issues with shortness of breath with exertion but this is unchanged. No clear orthopnea, PND, leg edema. No prolonged episodes of ir regular heartbeat. Occasional palpitation chest. Takes all her medications. No bleeding issues or neurologic events. No exertional chest pain with her daily activities. Plan to undergo colonoscopy, low risk procedure in April. [facility] Medical History Pain of left calf Tubular adenoma Elevated ferritin Osteoporosis Elevated liver enzymes Colon cancer screening Paroxysmal A-fib Asthma Anxiety, generalized Lipid disorder Hypertension, essential Diabetes 1.5, managed as type 2 Surgical History History of colonoscopy Hx of breast biopsy History of liver biopsy History of section Hx of cholecystectomy Family History Father No problems noted. Mother Ovarian cancer Colon cancer Social History Housing: House Alcohol intake: never Patient Tobacco Use Status: Never used Tobacco e-Cigarette/Vaping Use: Never Used service: No Current occupational status: employed Cognitive needs: No Hearing needs: No Vision needs: Yes Review of Systems Const Denies weakness ENT Denies dizziness Card Denies chest pain, Denies chest pain with activity, Denies syncope, Denies rapid heart rate, Denies pedal edema, Denies edema, Denies leg edema, Denies lightheadedness, Denies palpitations, Denies dyspnea, Denies dyspnea on exertion and Denies orthopnea Resp Denies cough, Denies dyspnea and Denies dyspnea on exertion GI Denies hematochezia and Denies change in stool character Musc Denies abnormal gait, Denies muscle cramps, Denies muscle weakness, Denies numbness, Denies radiating pain into limb and Denies tingling Neuro Denies abnormal gait, Denies dizziness, Denies syncope, Denies numbness, Denies tingling and Denies weakness Endo Denies palpitations Physical Exam Vital Signs: Last Vital Signs Pulse 54 02/24/24 08:55 BP 120/62 02/24/24 08:55 BMI result Body Mass Index 37.1 Const General: cooperative, healthy appearing, comfortable and no acute distress Orientation/consciousness: patient oriented x3 Neck Neck: Yes normal visual inspection Resp Effort & Inspection: normal respiratory effort Auscultation: clear to auscultation bilaterally, no crackles, no rales, no rhonchi, no wheezes and diminished lung sounds Cardio Jugular venous distension: no JVD Rate: regular rate Rhythm: abnormal rhythm Heart sounds: S1 normal heart sound present, S2 normal heart sound present, no gallops, no murmurs and no rubs Neuro General: patient oriented x3 Extrem General: Yes normal to inspection Psych Appearance: grossly normal Mental Status: mental status grossly normal Speech and movement: Normal speech and movement present Office Procedures EKG Details: EKG shows normal sinus rhythm with first-degree AV block with PACs with low- voltage QRS most likely due to body habitus and COPD with poor R-wave progressi on due to lead placement and body habitus [id number], Complete Assessment & Plan Assessment & Plan (1) Preop cardiovascular exam: Code(s): Z01.810 - Encounter for preprocedural cardiovascular examination Category: Medical Plan: Preoperative cardiovascular risk stratification this elderly woman undergo colonoscopy which is low risk procedure. She is currently not having any exerti onal symptoms concerning. She is currently optimized to undergo procedure with low to intermediate risk for perioperative cardiovascular morbidity mortality. Xarelto can be withheld for 3 days prior to the procedure and resume as soon as after the procedure add automatic pad making machine operator's discretion with associated thromboembolic risk. (2) Paroxysmal A-fib: Code(s): I48.0 - Paroxysmal atrial fibrillation Category: Medical Plan: Paroxysmal atrial fibrillation, currently suppressed with no major recurrences. She has PACs occasional symptoms related to it. Avoidance of stimulants was discussed. Continue monitor for symptoms. No change in therapy at this point time given his slower heart rate. Continue full oral anticoagulation with Xarelto. CHADSVASc score of 5. (3) Hypertension, essential: Code(s): I10 - Essential (primary) hypertension Category: Medical Plan: Hypertension which is currently well optimized advised to monitor blood pressure at home and maintain a log. Goal blood pressure less than 130/84. Low-salt diet was discussed. Continue to participate in aggressive weight loss program. Continue aggressive diabetes management goal hemoglobin A1c less than 7%. Will follow up in the clinic in 1 year's time, sooner p.r.n.. Thank you for allowing me to partake in his care Coding Level of Care Code Est Pt Level 4 (68810) Diagnoses Preop cardiovascular exam Z01.810 Paroxysmal A-fib I48.0 Hypertension, essential I10 CPT Codes EKG - CPT: [id number], Complete ([id number])
== END 2024-02-24 09:17 | disposition home or self-care (01) ==
PROVIDERS: PCP Internal Medicine; Visit Provider Internal Medicine Cardiovascular Disease
DX: I48.0 Paroxysmal atrial fibrillation (principal); I10 Essential (primary) hypertension; Z01.810 Encounter for preprocedural cardiovascular examination
CPT/HCPCS: 93010; 99214

== ENCOUNTER → 2024-02-24 08:41 | Outpatient (BNVA) | payer MEDICARE, SELFPAY | PROVIDERS: PCP Internal Medicine; Visit Provider Internal Medicine Cardiovascular Disease | DX: Z01.810 Encounter for preprocedural cardiovascular examination (principal); I44.0 Atrioventricular block, first degree; I49.3 Ventricular premature depolarization; I48.0 Paroxysmal atrial fibrillation; I10 Essential (primary) hypertension | CPT/HCPCS: 93005; 99212 ==

== ENCOUNTER 2024-03-08 11:22 | Outpatient (AMB) | payer MEDICARE, SELFPAY ==
[2024-03-08 11:29] VITALS: BP 118/64; PULSE 55; O2SAT 97; BMI 37.5
--- NOTE | 2024-03-08 11:29 | A.OFFPC_ITS ---
Vital Signs 3 03/08/24 11:29 Height 5 ft 1 in Weight 198 lb 6 oz BMI 37.5 BP 118/64 Blood Pressure Location Lt brachial Position Sitting Pulse 55 Pulse Source Pulse Oximeter Pulse Oximetry (%) 97 Oxygen Delivery Method Room Air Intake Visit Reasons: PE Allergies vancomycin [VANCOMYCIN] Allergy (Intermediate, Verified 03/08/24 11:29) HIVES, ITCHING DEANNA Inhibitors Allergy (Mild, Verified 03/08/24 11:29) Cough lisinopril [LISINOPRIL] Allergy (Mild, Verified 03/08/24 11:29) COUGH Medication List - Last Reconciled 03/08/24 by Johny Adorno MD albuterol sulfate 1.25 mg (3 mL) inhalation QID PRN albuterol sulfate 90 mcg/actuation (Ventolin HFA) 1 inh inhalation QID PRN 30 days alendronate 70 mg PO QWEEK bisacodyl (Dulcolax (bisacodyl)) 20 mg (4 x 5 mg) PO ONCE 1 day blood sugar diagnostic (FreeStyle Lite Strips) patient to check blood sugar once daily or as needed blood-glucose meter (FreeStyle Lite Meter kit) Patient to check blood sugar once daily or as needed cholecalciferol (vitamin D3) (Vitamin D3) 25 mcg PO DAILY docusate sodium 100 mg PO BEDTIME escitalopram oxalate 20 mg PO DAILY 90 days fluticasone propion-salmeterol 250-50 mcg/dose (Advair Diskus) 1 inh inhalation BID glipizide 10 mg PO BID 90 days hydrochlorothiazide 25 mg PO DAILY 90 days lancets (FreeStyle Lancets) Patient to check blood sugar once daily or as needed losartan 50 mg PO DAILY montelukast 10 mg PO BEDTIME polyethylene glycol 3350 (Miralax) 238 grams PO ONCE pravastatin 20 mg PO DAILY 90 days rivaroxaban (Xarelto) 20 mg PO DAILY [AlumniFunderraPlandree machine As directed] Tobacco use date assessed: 03/08/24 Fall risk assessment: 1 Fall in past year Last assessed Fall Risk: 03/08/24 Dental Screening Dental Screen Date: 03/08/24 Did you have a dental visit in the last 12 months?: No Did you have a dental problem in the last 6 months where you did not have access to dental care?: No Was dental information given to patient?: No HPI PE 2 HPI0 Details Patient is 73-year-old female came in today for her physical exam appointment Patient has injured her left foot 2 weeks ago accidentally She said that her 3rd and 5th toe was black in flu but it is getting better now However continued to have pain when walking, I have ordered x-ray She is also due for her labs Patient have a history of thrombocytopenia, we are monitoring it Last set of lab was November New set of lab order placed Mammogram was September Colonoscopy was March of 2021 Atrial fibrillation management through Cardiology office, patient is on Xarelto Asthma is stable taking Advair Diskus b.i.d. Patient is aware that she need to rinse her mouth after Diabetes mellitus:? Continue glipizide 10 mg 1 tablet in the morning and half at night Hypertension:? Blood pressure is stable patient is on hydrochlorothiazide 25 mg, losartan 50 mg she is tolerating medication no side effects Anxiety/depression stable patient is escitalopram 20 mg Lipid disorder:? Continue pravastatin 20 mg labs to be done today. Patient have severe peripheral vascular disease with varicosities she has seen Dr. Sherwood vascular specialist 2 years ago Patient does have a fatty liver as well but liver enzymes are stable.? Will continue to monitor Continue Fosamax for osteoporosis management Follow-up 3 months PFSH Medical History Pain of left calf Tubular adenoma Elevated ferritin Osteoporosis Elevated liver enzymes Colon cancer screening Paroxysmal A-fib Asthma Anxiety, generalized Lipid disorder Hypertension, essential Diabetes 1.5, managed as type 2 Surgical History History of colonoscopy Hx of breast biopsy History of liver biopsy History of section Hx of cholecystectomy Family History Father No problems noted. Mother Ovarian cancer Colon cancer Social History Housing: House Alcohol intake: never Patient Tobacco Use Status: Never used Tobacco e-Cigarette/Vaping Use: Never Used service: No Current occupational status: employed Cognitive needs: No Hearing needs: No Vision needs: Yes Questionnaire PHQ-9 Over the last 2 weeks, how often have you been bothered by any of the following problems? 1. Little interest or pleasure in doing things: not at all 2. Feeling down, depressed, or hopeless: more than half the days 3. Trouble falling or staying asleep, or sleeping too much: several days 4. Feeling tired or having little energy: several days 5. Poor appetite or overeating: nearly every day 6. Feeling bad about yourself - or that you are a failure or have let yourself or your family down: several days 7. Trouble concentrating on things, such as reading the newspaper or watching television: several days 8. Moving or speaking so slowly that other people could have noticed. Or the opposite - being so fidgety or restless that you have been moving around a lot more than usual: not at all 9. Thoughts that you would be better off or of hurting yourself in some way: not at all Total score: 9 Depression Screening Interpretation: Negative Depression Screening Done: Yes [id number] - PHQ-9 Billing: Yes Source: Developed by Drs. Bogdan So, Michelle Cuevas, Lamberto Pruett and colleagues, with an educational james from [employer]. Thrive Questionnaire Date Thrive assessed: 03/08/24 I am a: Patient What is your living situation today?: I have a steady place to live Within the past 12 months, did the food you bought not last and you didn't have the money to get more?: Never true Within the past 12 months, did you worry whether your food would run out before you got money to buy more?: Never true Do you have trouble paying for medicines?: No Do you have trouble getting transportation to medical appointments?: No Do you have trouble paying your heating and electricity bill?: No Do you have trouble taking care of your child, family member or friend?: No Do you have trouble with day-to-day activities such as bathing, preparing meals, shopping, managing finances, etc.?: No Are you currently unemployed and looking for a job?: No Are you interested in more education?: Yes Please select the resources that you would like help with: Education Currently or been in a relationship where the following occur: I choose not to answer THRIVE Score: 0 AUDIT C Alcohol Use Questionnaire (AUDIT-C) 1. How often do you have a drink containing alcohol?: Never 3. How often do you have six or more drinks on one occasion?: Never Total Score: 0 Score Reviewed/Action Taken: Yes SEAN-7 AMB Questionnaire SEAN-7 Date SEAN - 7 assessed: 03/08/24 Feeling nervous, anxious, or on edge: 1 = Several days Not being able to stop or control worryin = Not at all Worrying too much about different things: 0 = Not at all Trouble relaxin = Several days Being so restless that it is hard to sit still: 0 = Not at all Becoming easily annoyed or irritable: 1 = Several days Feeling afraid as if something awful might happen: 1 = Several days Total SEAN-7 score (0-4 normal; 5-9 mild; 10-14 moderate; 15-21 severe): 4 Source: Developed by Drs. Bogdan So, Michelle Cuevas, Lamberto Pruett and colleagues, with an educational james from [employer]. SEAN-7 Assessment Billing SEAN-7 Assessment Tool: SEAN-7 Assessment 67029 Review of Systems Const Denies chills, Denies fever(s) and Denies headache(s) Eyes Denies blurry vision ENT Denies headache(s), Denies nasal discharge, Denies nasal obstruction, Denies odynophagia and Denies sinus pain Card Denies chest pain at rest and Denies chest pain with activity Resp Denies cough and Denies hemoptysis GI Denies diarrhea, Denies odynophagia, Denies vomiting and Denies hematemesis Reports as per HPI Musc Denies abnormal gait Skin/Breast Reports as per HPI Neuro Denies Neuro-related abnormal movements, Denies Abnormal speech present, Denies abnormal gait, Denies headache(s) and Denies Sensory deficit (Neuro) Psych Denies mood swings and Denies paranoia Endo Reports as per HPI Lars/Lymph Reports as per HPI Aller/Immun Reports as per HPI Physical exam (Primary Care) Vital Signs: Last Vital Signs Pulse 55 03/08/24 11:29 BP 118/64 03/08/24 11:29 Pulse Ox 97 03/08/24 11:29 Oxygen Delivery Method Room Air 03/08/24 11:29 BMI result Body Mass Index 37.5 Tobacco/Smoking Status: Tobacco use Status Tobacco use date assessed 03/08/24 03/08/24 11:32 Patient Tobacco Use Status Never used Tobacco 03/08/24 11:32 e-Cigarette/Vaping Use Never Used 03/08/24 11:32 PHQ-9: PHQ-9 Score PHQ-9: Total score 9 03/08/24 11:44 Depression Screening Interpretation: Negative Thrive Assessment: Date of Thrive Assessment Date Thrive assessed 03/08/24 03/08/24 11:32 Currently or been in a relationship where the following occur: I choose not to answer Const General: cooperative, comfortable and no acute distress Orientation/consciousness: patient oriented x3 HENMT Head: Yes normocephalic and Yes atraumatic Eyes General: appearance normal, both eyes and all related structures Pupils: Equal, round and reactive pupils present EOM: EOMs intact bilaterally Neck Neck: Yes supple and No lymphadenopathy Thyroid: Thyroid normal Lymphatic: no lymphadenopathy noted Chest Breast/axilla palpation: normal palpation of the breasts Resp Effort & Inspection: normal respiratory effort and able to speak in complete sentences Auscultation: clear to auscultation bilaterally Cardio Heart sounds: S1 normal heart sound present and S2 normal heart sound present GI Palpation (GI): Soft to palpation and nontender Auscultation: normal bowel sounds General: Yes no CVA tenderness Back/Spine/Pelvis Back: no CVA tenderness Skin General skin exam: elasticity normal and turgor normal Neuro General: patient oriented x3 and gait normal Cranial nerves: Yes Equal, round and reactive pupils present Speech: No Abnormal speech present Sensory Exam: No Sensory deficit (Neuro) Coordination: tandem gait normal and Romberg test negative Extrem General: Yes normal exam except as noted and No edema Ankle/foot/toe images: 2 1. Tender to palpation Assessment and Plan Assessment & Plan (1) Encounter for general adult medical examination with abnormal findings: Code(s): Z00.01 - Encounter for general adult medical examination with abnormal findings (2) Foot injury: Code(s): S99.929A - Unspecified injury of unspecified foot, initial encounter Qualifiers: Encounter type: initial encounter Laterality: left Qualified Code(s): S99.922A - Unspecified injury of left foot, initial encounter (3) Diabetes 1.5, managed as type 2: Code(s): E13.9 - Other specified diabetes mellitus without complications (4) Hypertension, essential: Code(s): I10 - Essential (primary) hypertension (5) Lipid disorder: Code(s): E78.9 - Disorder of lipoprotein metabolism, unspecified (6) Anxiety, generalized: Code(s): F41.1 - Generalized anxiety disorder (7) Paroxysmal A-fib: Code(s): I48.0 - Paroxysmal atrial fibrillation (8) Asthma, moderate persistent: Code(s): J45.40 - Moderate persistent asthma, uncomplicated Qualifiers: Asthma complication type: uncomplicated Qualified Code(s): J45.40 - Moderate persistent asthma, uncomplicated (9) Obesity due to excess calories: Code(s): E66.09 - Other obesity due to excess calories Qualifiers: Body mass index: BMI 37.0-37.9 Obesity classification: adult class 2 (BMI 35 - 39.9) Serious obesity comorbidity presence: with serious comorbidity Qualified Code(s): E66.01 - Morbid (severe) obesity due to excess calories; Z68.37 - Body mass index [BMI] 37.0-37.9, adult Plan Patient is 73-year-old female came in today for her physical exam appointment Patient has injured her left foot 2 weeks ago accidentally She said that her 3rd and 5th toe was black in flu but it is getting better now However continued to have pain when walking, I have ordered x-ray She is also due for her labs Patient have a history of thrombocytopenia, we are monitoring it Last set of lab was November this year New set of lab order placed Mammogram was September Colonoscopy was March of 2021 Atrial fibrillation management through Cardiology office, patient is on Xarelto Asthma is stable taking Advair Diskus b.i.d. Patient is aware that she need to rinse her mouth after Diabetes mellitus:? Continue glipizide 10 mg 1 tablet in the morning and half at night Hypertension:? Blood pressure is stable patient is on hydrochlorothiazide 25 mg, losartan 50 mg she is tolerating medication no side effects Anxiety/depression stable patient is escitalopram 20 mg Lipid disorder:? Continue pravastatin 20 mg labs to be done today. Patient have severe peripheral vascular disease with varicosities she has seen Dr. Sherwood vascular specialist 2 years ago Patient does have a fatty liver as well but liver enzymes are stable.? Will continue to monitor Continue Fosamax for osteoporosis management Follow-up 3 months Orders: Orders 2 XR foot LT 2V Today S99.929A - Unspecified injury of unspecified foot, initial encounter Coding Level of Care Code Est Pt Level 3 (07356) Est Pt Prev Care >65y(11556) Diagnoses Encounter for general adult medical examination with abnormal findings Z00.01 Injury of left foot, initial encounter S99.922A Encounter type: initial encounter Laterality: left Diabetes 1.5, managed as type 2 E13.9 Hypertension, essential I10 Lipid disorder E78.9 Anxiety, generalized F41.1 Paroxysmal A-fib I48.0 Moderate persistent asthma without complication J45.40 Asthma complication type: uncomplicated Class 2 severe obesity due to excess calories with serious comorbidity and body mass index (BMI) of 37.0 to 37.9 in adult E66.01; Z68.37 Body mass index: BMI 37.0-37.9 Obesity classification: adult class 2 (BMI 35 - 39.9) Serious obesity comorbidity presence: with serious comorbidity Additional Codes SEAN-7 Assessment Billing - SEAN-7 Assessment Tool: SEAN-7 Assessment [id number] ([id number])
== END 2024-03-08 14:06 | disposition home or self-care (01) ==
PROVIDERS: PCP Internal Medicine; Visit Provider Internal Medicine
DX: Z00.00 Encounter for general adult medical examination without abnormal findings (principal); S99.922A Unspecified injury of left foot, initial encounter; E66.01 Morbid (severe) obesity due to excess calories; Z68.37 Body mass index [BMI] 37.0-37.9, adult; E13.9 Other specified diabetes mellitus without complications; I48.0 Paroxysmal atrial fibrillation; I10 Essential (primary) hypertension; E78.9 Disorder of lipoprotein metabolism, unspecified; F41.1 Generalized anxiety disorder; J45.40 Moderate persistent asthma, uncomplicated

== ENCOUNTER → 2024-03-08 11:22 | Outpatient (BNVA) | payer MEDICARE, SELFPAY | PROVIDERS: PCP Internal Medicine; Visit Provider Internal Medicine ==

== ENCOUNTER 2024-03-08 13:32 | Outpatient (REF) | payer MEDICARE, SELFPAY ==
--- NOTE | ~2024-03-08 | XR_ITS ---
EXAMINATION: XR FOOT, LEFT CLINICAL INFORMATION: S99.929A - Unspecified injury of unspecified foot, initial encounter COMPARISON: None available. TECHNIQUE: AP, lateral, and oblique views of the left foot. FINDINGS: Mild osteopenia. No fracture, dislocation, or suspicious bone lesion. There is normal alignment. There is mild flattening of the second metatarsal head, an incidental finding of uncertain clinical significance. Mild osteoarthrosis in the first MTP joint. No additional findings of arthropathy. Forefoot and midfoot appear normal. Calcaneus demonstrates small plantar and dorsal spurs. Hindfoot otherwise normal. There are venous calcifications in the distal leg soft tissues. Soft tissues otherwise normal. XR/XR foot LT 2V IMPRESSION: 1. No acute findings left foot. 2. Mild osteoarthrosis first MTP joint. 3. Mild osteopenia. Electronically signed by: Channing Lucio MD 05/16/2024 09:30 AM [facility]
[2024-03-08 16:20] LABS: MANUAL DIFF FLAG NO
[2024-03-08 16:29] LABS: Basophils Percent Auto 0.6 % (0-2); Eosinophils Absolute Auto 0.2 X10*3/uL (0.0-0.4); Eosinophils Percent Auto 2.4 % (0-4); Hematocrit 38.1 % (37.0-47.0); Hemoglobin 12.6 g/dl (12.0-16.0); Imm Gran Abs Auto 0.02 X10*3/uL (0.00-0.03); Imm Gran Pct Auto 0.3 % (0.0-0.4); Lymphocytes Absolute Auto 1.3 X10*3/uL (1.2-4.9); Lymphocytes Percent Auto 19.1 % (20-40); Mean Corpuscular HGB Conc 33.1 g/dl (31.0-35.0); Mean Corpuscular Hemoglobin 30.7 pg (27.0-33.0); Mean Corpuscular Volume 92.9 fL (80.0-98.0); Mean Platelet Volume 11.3 fL (9.4-12.3); Monocytes Absolute Auto 0.3 X10*3/uL (0.1-1.2); Neutrophils Absolute Auto 4.8 x10*3/uL (2.0-8.3); Neutrophils Percent Auto 72.6 % (45-73); Platelet Count 162 X10*3/uL (160-400); Red Cell Distribution Width 13.7 % (11.0-16.0); White Blood Count 6.6 X10*3/uL (4.8-10.8)
[2024-03-08 16:43] LABS: Estimated Average Glucose 128 mg/dL; Hemoglobin A1c % 6.1 % (<6.0)
[2024-03-08 16:48] LABS: Alanine Aminotransferase 36 U/L (0-31); Albumin Level 3.7 g/dL (3.5-5.0); Alkaline Phosphatase 60 U/L (39-117); Anion Gap 13 (12-20); Aspartate Amino Transferase 41 U/L (5-31); Bilirubin Total 0.6 mg/dL (0.0-1.0); Blood Urea Nitrogen 11 mg/dL (9-16); Calcium 9.7 mg/dL (8.4-10.2); Carbon Dioxide 28 mmol/L (22-29); Chloride 103 mmol/L (96-108); Estimated Glomerular Filt Rate > 60; Glucose Random 218 mg/dL (60-115); Potassium 4.5 mmol/L (3.3-5.1); Sodium 139 mmol/L (135-145); Total Protein 6.9 g/dL (6.5-8.0)
[2024-03-08 17:23] LABS: Creatinine Urine 96.29 mg/dL; Microalbum/Creatinine Ratio Ur 12.4 ug/mg cr (<30)
== END 2024-03-08 13:33 | disposition home or self-care (01) ==
LOC: HO.HMGCX 13:32
PROVIDERS: PCP Internal Medicine; Visit Provider Internal Medicine
DX: S99.922A Unspecified injury of left foot, initial encounter (principal); E66.01 Morbid (severe) obesity due to excess calories; Z68.37 Body mass index [BMI] 37.0-37.9, adult; J45.40 Moderate persistent asthma, uncomplicated; I48.0 Paroxysmal atrial fibrillation; F41.1 Generalized anxiety disorder; E78.9 Disorder of lipoprotein metabolism, unspecified; E13.9 Other specified diabetes mellitus without complications; I10 Essential (primary) hypertension
CPT/HCPCS: 36415; 73620; 80053; 82043; 82570; 83036; 85025; 96127; 99212; 99397

== ENCOUNTER → 2024-03-08 13:43 | Outpatient (BNV) | payer MEDICARE, SELFPAY | PROVIDERS: PCP Internal Medicine; Visit Provider Radiology Diagnostic Radiology | DX: M19.072 Primary osteoarthritis, left ankle and foot (principal); M85.872 Other specified disorders of bone density and structure, left ankle and foot | CPT/HCPCS: 73630 ==

== ENCOUNTER 2024-05-03 07:10 | Day surgery (SDC) | payer MEDICARE, SELFPAY ==
[2024-05-01 14:11] VITALS: BMI 37.0
--- NOTE | 2024-05-02 09:52 | HO.ANESPROP2 ---
Documented by User: Tierra Shi NP 05/02/24 09:54 HPI - Anesthesia Eval Consult details Narrative: 73yo F for Colonoscopy Xarelto for afib [place] [facility] [place] Last visit 02/2024 - low risk for colo PMFSH Active Problems Active Problems: All Active Problems Foot injury (Acute) Asthma exacerbation (Acute) Wound of right ankle (Acute) Right flank pain (Acute) Varicose veins of bilateral lower extremities with other complications (Acute) Respiratory tract congestion with cough (Acute) Obesity due to excess calories (Acute) Chest discomfort (Acute) Asthma, moderate persistent (Acute) Preop cardiovascular exam (Acute) Encounter for general adult medical examination with abnormal findings (Acute) Pain of left calf (Acute) Tubular adenoma (Acute) Elevated liver enzymes (Acute) Paroxysmal A-fib (Acute) Asthma (Acute) Anxiety, generalized (Acute) Lipid disorder (Acute) Hypertension, essential (Acute) Diabetes 1.5, managed as type 2 (Acute) Past Medical History Medical History (Updated 05/01/24 @ 14:09 by Megan Carr RN) Pain of left calf Tubular adenoma Elevated ferritin Osteoporosis Elevated liver enzymes Colon cancer screening Paroxysmal A-fib Asthma Anxiety, generalized Lipid disorder Hypertension, essential Diabetes 1.5, managed as type 2 Family History Family History Father No problems noted. Mother Ovarian cancer Colon cancer Family history of problems with anesthesia: No Surgical History Surgical History (Updated 05/01/24 @ 14:04 by Megan Carr RN) History of colonoscopy Hx of breast biopsy History of liver biopsy History of section Hx of cholecystectomy History of Problems with Anesthesia: No Social History Social History Housing: House Alcohol intake: never Patient Tobacco Use Status: Never used Tobacco e-Cigarette/Vaping Use: Never Used Use of substances other than those prescribed or required for medical reasons: No Have you been hit, kicked, punched, or otherwise hurt by someone within the past year? If so, by whom?: No Are you DNR?: No Advance Directives: No Advance Directives Information Provided: Yes Recently lost weight without trying: No service: No Current occupational status: employed Cognitive needs: No Hearing needs: No Vision needs: Yes Meds Allergies Allergy/AdvReac Type Severity Reaction Status Date / Time vancomycin [VANCOMYCIN] Allergy Intermediate HIVES, Verified 03/08/24 11:29 ITCHING DEANNA Inhibitors Allergy Mild Cough Verified 03/08/24 11:29 Home Medications ?Medication ?Instructions ?Recorded ?Confirmed ?Last Taken ?Type cholecalciferol (vitamin D3) 25 25 mcg PO DAILY 04/04/21 05/01/24 Unknown History mcg (1,000 unit) capsule (Vitamin D3) docusate sodium 100 mg capsule 100 mg PO BEDTIME 08/24/23 05/01/24 Unknown History Exam Height,Weight and Vital Signs: Height 5 ft 1 in Weight 88.904 kg Pertinent Lab Results Pertinent Lab Results: Laboratory Tests 03/08/24 13:40 WBC 6.6 Hgb 12.6 Hct 38.1 Plt Count 162 Sodium 139 Potassium 4.5 Chloride 103 Carbon Dioxide 28 BUN 11 Creatinine 0.83 Narrative Narrative: EKG 02/2024 EKG Details: EKG shows normal sinus rhythm with first-degree AV block with PACs with low-voltage QRS most likely due to body habitus and COPD with poor R-wave progression due to lead placement and body habitus Assessment and Plan Assessment Anesthesia Assessment: Chart Reviewed Final Anesthetic Review Family History of Problems with Anesthesia: No History of Problems with Anesthesia: No Documented by User: Renetta Miranda MD 05/03/24 08:37 [facility] Past Medical History Medical History (Updated 05/01/24 @ 14:09 by Megan Carr, [place]) Pain of left calf Tubular adenoma Elevated ferritin Osteoporosis Elevated liver enzymes Colon cancer screening Paroxysmal A-fib Asthma Anxiety, generalized Lipid disorder Hypertension, essential Diabetes 1.5, managed as type 2 Family History Family History Father No problems noted. Mother Ovarian cancer Colon cancer Surgical History Surgical History (Updated 05/01/24 @ 14:04 by Megan Carr, RN) History of colonoscopy Hx of breast biopsy History of liver biopsy History of section Hx of cholecystectomy Social History Social History Housing: House Alcohol intake: never Patient Tobacco Use Status: Never used Tobacco e-Cigarette/Vaping Use: Never Used Use of substances other than those prescribed or required for medical reasons: No Have you been hit, kicked, punched, or otherwise hurt by someone within the past year? If so, by whom?: No Are you DNR?: No Advance Directives: No Advance Directives Information Provided: Yes Recently lost weight without trying: No service: No Current occupational status: employed Cognitive needs: No Hearing needs: No Vision needs: Yes Meds Allergies Allergy/AdvReac Type Severity Reaction Status Date / Time vancomycin [VANCOMYCIN] Allergy Intermediate HIVES, Verified 03/08/24 11:29 ITCHING DEANNA Inhibitors Allergy Mild Cough Verified 03/08/24 11:29 Home Medications ?Medication ?Instructions ?Recorded ?Confirmed ?Last Taken ?Type cholecalciferol (vitamin D3) 25 25 mcg PO DAILY 04/04/21 05/01/24 Unknown History mcg (1,000 unit) capsule (Vitamin D3) docusate sodium 100 mg capsule 100 mg PO BEDTIME 08/24/23 05/01/24 Unknown History Exam Airway Mallampati Class: II TM Dist: >3cm Neck ROM: Full Denture: Upper Heart: irreg Lungs: cta Assessment and Plan Assessment Anesthesia Assessment: Anesthesia Plan Discussed Final Anesthetic Review NPO: Yes ASA Class: III Final Preanesthetic Review: No Changes in Pt Med Stat, Meds/Allgs Chart Reviewed and Consent Obtained/Reviewed Patient Risk: Intermediate Procedure Risk: Low Anesthetic Plan Anesthetic Plan: MAC: Disposition: Standard PACU
[2024-05-03 07:16] VITALS: BP 132/69; PULSE 83; RESP 16; TEMP 36.7; O2SAT 97; BMI 38.1
[2024-05-03 07:36] LABS: Glucose, Whole Blood 135 mg/dL (60-115)
[2024-05-03] MEDS: Lactated Ringers 1,000 ML 100 ML IVCONT (07:38)
--- NOTE | 2024-05-03 08:26 | P.HPSUR_ITS ---
Pre-Procedural Eval Section A - 24 Hr Update-Section A only Date of Service: 05/03/24 Section B - Complete if H&P > 30 days Chief Complaint: Encounter for screening for malignant neoplasm of Relevant Family History (Specify if Yes): No Relevant Social History: None Present Medications: see Short Stay Collaborative assessment Medical History: Significant History ( Pain of left calf Tubular adenoma Ryder tyler ferritin Osteoporosis Elevated liver enzymes Colon cancer screening Paroxysmal A-fib Asthma Anxiety, generalized Lipid disorder Hypertension, essential Diabetes 1.5, managed as type 2) History of Previous Operations: Relevant previous surgery/procedure and date(s) (History of colonoscopy Hx of breast biopsy History of liver biopsy History of section Hx of cholecystectomy) Allergies: Allergies Allergy/AdvReac Type Severity Reaction Status Date / Time vancomycin [VANCOMYCIN] Allergy Intermediate HIVES, Verified 03/08/24 11:29 ITCHING DEANNA Inhibitors Allergy Mild Cough Verified 03/08/24 11:29 Review of Systems Sugical H&P ROS: Negative: Constitution, Cardiovascular, Respiratory, Neurological, Psychiatric, Hem-Onc, Allergic/Immunologic, Gastrointestinal, Genitourinary, Musculoskeletal, Integumentary, Endocrine and Eyes/Ears/No se/Throat Exam Surgical H&P Exam: Normal: HEENT, Normal: Heart, Normal: Lungs, Normal: Extremities, Normal: Abdomen, Normal: Skin and Normal: Neurological Plan Diagnosis/Plan: Unchanged I have reviewed the history and physical and performed a pertinent physical examination on my patient. No changes have occurred unless specified. Time Spent With Patient Time: Total time managing care of this patient today ____ minutes.
--- NOTE | 2024-05-03 08:51 | P.OPN-COLO_ITS ---
Colonoscopy Operative Note Operative Note Date of Service: 05/03/24 Narrative: Operative Information Procedure Description: Colonoscopy Indication: screening, hx of colon polyps Anesthesia: MAC COLONOSCOPY Instrument: Olympus variable stiffness pediatric scope 190L Colonoscopy Monitoring: Vital signs and clinical assessment, continuous EKG monitoring, Pulse oximetry, Carbon Dioxide monitoring and blood pressure monitoring were done throughout the procedure. Colon withdrawal time was 9 minutes. Procedure: The patient was placed in the left lateral decubitis position and pre-procedure medications were administered. After a digital rectal examination of the ano-rectum, the video colonoscope was inserted into the rectum and advanced through the colon to the cecum/TI. The colonoscope was slowly withdrawn in a retrograde panoramic fashion and the colon mucosa was carefully examined including a retroflexed view of the rectum. Findings and interventions are described below. Procedure Difficulty: easy Findings: Terminal Ileum-normal Cecum: 2-3 mm sessile polyp removed with cold forceps Ascending Colon: normal Transverse Colon -normal Descending Colon:normal Sigmoid Colon: moderate severe diverticulosis Rectum: Retroflexion with small internal hemorrhoids seen, grade I Anorectum - normal Intervention: cold forceps Colon preparation: [place] Bowel Preparation Scale Right colon; 2 Transverse colon: 2 Left colon; 3 (0 = Unprepared colon segment with mucosa not seen due to solid stool that cannot be cleared. 1 = Portion of mucosa of the colon segment seen, but other areas of the colon segment not well seen due to staining, residual stool and/or opaque liquid. 2 = Minor amount of residual staining, small fragments of stool and/or opaque liquid, but mucosa of colon segment seen well. 3 = Entire mucosa of colon segment seen well with no residual staining, small fragments of stool or opaque liquid) Impression and Post Procedure Diagnosis: diverticulosis colon polyp internal hemorrhoids Plan: High fiber diet leaflet Avoid straining at stool, epsom salts and sitz bath, anusol supps or cream Repeat Colonoscopy in 5 years due to hx of colon polyps or earlier if clinically indicated Above findings were reviewed with the patient and relevant handouts were provided if indicated.
[2024-05-03 08:53] VITALS: BP 101/43; PULSE 70; RESP 16; TEMP 36.3; O2SAT 93
[2024-05-03 09:08] VITALS: BP 112/58; PULSE 67; RESP 16; TEMP 36.8; O2SAT 96
== END 2024-05-03 09:55 | disposition home or self-care (01) ==
PROVIDERS: PCP Internal Medicine; Visit Provider Internal Medicine Gastroenterology
PROC: 0DJD8ZZ Inspection of Lower Intestinal Tract, Via Natural or Artificial Opening Endoscopic (ICD-10-PCS; CPT 45378; principal; 2024-05-03 08:30)
DX: Z12.11 Encounter for screening for malignant neoplasm of colon (principal); Z86.0101 Personal history of adenomatous and serrated colon polyps; D12.0 Benign neoplasm of cecum; K57.30 Diverticulosis of large intestine without perforation or abscess without bleeding; K64.0 First degree hemorrhoids; K59.01 Slow transit constipation; D17.5 Benign lipomatous neoplasm of intra-abdominal organs; I10 Essential (primary) hypertension; I48.0 Paroxysmal atrial fibrillation; E75.6 Lipid storage disorder, unspecified; R74.8 Abnormal levels of other serum enzymes; R79.89 Other specified abnormal findings of blood chemistry; M81.0 Age-related osteoporosis without current pathological fracture; E13.8 Other specified diabetes mellitus with unspecified complications; F41.1 Generalized anxiety disorder; Z79.84 Long term (current) use of oral hypoglycemic drugs; Z79.899 Other long term (current) drug therapy; Z88.1 Allergy status to other antibiotic agents; Z88.8 Allergy status to other drugs, medicaments and biological substances
CPT/HCPCS: 45380; 82947; 88305; J2003

== ENCOUNTER → 2024-05-03 07:10 | Outpatient (BNV) | payer MEDICARE, SELFPAY | PROVIDERS: PCP Internal Medicine; Visit Provider Internal Medicine Gastroenterology | DX: Z12.11 Encounter for screening for malignant neoplasm of colon (principal); Z86.0100 Personal history of colon polyps, unspecified; D12.0 Benign neoplasm of cecum; K57.30 Diverticulosis of large intestine without perforation or abscess without bleeding | CPT/HCPCS: 45380 ==

== ENCOUNTER 2024-05-21 04:55 | Emergency (ER) | payer MEDICARE, SELFPAY ==
--- NOTE | 2024-05-21 | ECG_ITS ---
Test Reason : N/V Blood Pressure : / mmHG Vent. Rate : 053 BPM Atrial Rate : 057 BPM P-R Int : 000 ms QRS Dur : 084 ms QT Int : 486 ms P-R-T Axes : 000 -02 051 degrees QTc Int : 456 ms Atrial fibrillation Cannot rule out Anterior infarct (cited on or before 11-JAN-2009) Abnormal ECG When compared with ECG of 11-JAN-2009 14:47, T wave inversion no longer evident in Anterolateral leads QT has shortened Referred By: Generic ED Physician Electronically Signed By:Andre Bedolla
--- NOTE | ~2024-05-21 | CT_ITS ---
EXAMINATION: CT ABDOMEN AND PELVIS WITHOUT CONTRAST CLINICAL INFORMATION: Abdominal pain COMPARISON: None available. TECHNIQUE: Multidetector volumetric imaging was performed from the superior aspect of the liver through the pubic symphysis. Sagittal and coronal reformatted images were obtained on the technologist's workstation. This CT examination was performed using dose optimization techniques as appropriate, variously including the following: *Automated exposure control *Adjustment of mA and/or kV according to patient size (this includes techniques or standardized protocols for targeted exams where dose is matched to indication/reason for exam; i.e. extremities or head) *Use of iterative reconstruction technique DLP: 798 mGy-cm FINDINGS: LUNG BASES: Mild bibasilar dependent changes. LIVER, GALLBLADDER, AND BILIARY TREE: Right lobe measures 17.3 cm craniocaudal. Nodular contour of the liver. . No focal hepatic lesion or biliary ductal dilatation is present. Gallbladder is not visualized, could be surgically absent versus contracted. Clinically correlate. PANCREAS: Unremarkable. No acute inflammatory changes. SPLEEN: Measures 15.2 cm AP. ADRENAL GLANDS: Unremarkable. KIDNEYS AND URETERS: Homogeneous attenuation. No renal or ureteral calculi. No hydronephrosis. Mild right perinephric stranding. BLADDER: Unremarkable. GASTROINTESTINAL TRACT: Small hiatal hernia. Stomach is partially distended, limiting evaluation. No dilated small or large bowel loops. Colonic diverticulosis. No significant pericolonic inflammatory changes to suggest definite diverticulitis. Small-moderate volume stool in the large colon. Normal appendix. No free fluid. No free air. ABDOMINAL WALL: No significant hernia is appreciated. LYMPH NODES: No pathologically enlarged lymph nodes are seen. VASCULAR: Normal caliber aorta. Atherosclerotic vascular calcification. PELVIC VISCERA: Left adnexal/ovarian cyst measuring 3.3 cm. OSSEOUS STRUCTURES: Multilevel degeneration in the spine. Bilateral SI joint arthritis. Symphysis pubis degeneration. No aggressive or suspicious bony lesion is seen. CT/CT abdomen pelvis wo IV con IMPRESSION: * Right lobe measures 17.3 cm. Nodular contour of the liver, raising concern for metastatic disease. Clinically correlate. * Gallbladder is not visualized, could be surgically absent or contracted. Clinically correlate.. Ultrasound evaluation as clinically indicated. * Colonic diverticulosis without evidence of definite diverticulitis. * Left adnexal/ovarian cyst measuring 3.3 cm. Findings likely represent a probable benign cyst. Recommend followup ultrasonography in 3 months. Alternately, if there are symptoms attributable to this region, ultrasound evaluation can be obtained at this stage. Fleischner guidelines were followed. Electronically signed by: César Doss MD 05/21/2024 10:32 AM [facility] MENDOZA
--- NOTE | ~2024-05-21 | CT_ITS ---
CT HEAD CTA HEAD AND NECK HISTORY: dizziness, N/V TECHNIQUE: Serial axial images were obtained on a multidetector CT through the head without the use of intravenous contrast, as per the standard departmental protocol. Multiplanar 2D MPR reformatted images were then obtained. CTA of the head and neck was performed after the administration of intravenous contrast according to the departmental protocol. MIP 3D angiographic rendering was then performed at the scanner. Evaluation for stenosis of the carotid arteries was made based on NASCET criteria, with evaluation of any areas of focal narrowing relative to the distal vessel (using minimal luminal diameter). Measurement of the distal internal carotid artery diameter was used as the denominator for stenosis measurement. Contrast was administered given the patient's clinical history. 65 mL Omnipaque [address] exams at this location are performed using dose optimization techniques as appropriate to a performed exam including at least one of the following: * Automated exposure control * Adjustment of the mA and/or kV according to patient size (this includes techniques or standardized protocols for targeted exams where dose is matched to indication / reason for exam; i/e/ extremities or head) * Use of iterative reconstructive technique DLP: 2181 mGy-cm COMPARISON: None FINDINGS: CT Head: The ventricles, sulci and cisterns are age-appropriate. There is no mass-effect, midline shift, or space-occupying lesion. There is no acute intracranial hemorrhage or extra-axial fluid collection. There is no acute territorial infarct. The visualized paranasal sinuses are clear. The mastoid air cells are clear. The orbits and soft tissues are unremarkable. There is no displaced calvarial fracture. CTA Head: Atherosclerotic calcified plaque is noted involving the cavernous and supraclinoid portions of the internal carotid arteries, without significant stenosis. The anterior and middle cerebral arteries are patent with normal contrast enhancement and branching pattern. There is a normal anterior communicating artery complex. The vertebral and basilar arteries demonstrate normal enhancement without stenosis or occlusion. The posterior cerebral arteries have a normal caliber and branching pattern. There is a origin of the right posterior cerebral artery, a normal variant. The left posterior communicating artery is unremarkable. There is no evidence of stenosis, occlusion, aneurysm or arteriovenous malformation. CTA Neck: The visualized aortic arch and origins of the major vessels are unremarkable. Retropharyngeal course of the common carotid artery on the right. The right common, internal and external carotid arteries are otherwise normal in appearance. There is no evidence of a significant stenosis by NASCET criteria or a dissection. Retropharyngeal course of the common and internal carotid artery on the left. The left common, internal and external carotid arteries are otherwise normal in appearance. There is no evidence of a significant stenosis by NASCET criteria or a dissection. The cervical portions of the vertebral arteries demonstrate normal enhancement. There is no evidence of a significant stenosis or a dissection. The visualized soft tissues are unremarkable. The visualized lung is unremarkable. The visualized osseous structures are unremarkable aside from mild degenerative disease. CT/CT angio head neck IMPRESSION: 1. No acute intracranial pathology. 2. No large vessel occlusion. 3. No significant stenosis in the major arteries of the head and neck. Electronically signed by: Ghazala Schneider MD 05/21/2024 09:17 AM RUSLAN
[2024-05-21 05:01] VITALS: BP 149/64; PULSE 61; RESP 19; TEMP 36.6; O2SAT 98; BMI 37.3
[2024-05-21 05:17] LABS: MANUAL DIFF FLAG NO
--- NOTE | 2024-05-21 05:20 | PC.NURSE ---
pt biba from home, a&ox4, respirations even and unlabored. pt reports she woke up with sudden onset of nausea, vomiting and dizziness. pt reports she felt as if the room was spinning when she had tried to get up. pt reports she felt as if she was going to have diarrhea. pt appeared pale on arrival, pt abdomen noted to be distended. pt denies pain at this time. 20G placed in right forearm, and 20G in left hand. ekg and labs obtained. provider aware. afib on tele 60-65bpm.
[2024-05-21 05:21] LABS: Basophils Percent Auto 0.4 % (0-2); Eosinophils Absolute Auto 0.1 X10*3/uL (0.0-0.4); Eosinophils Percent Auto 2.6 % (0-4); Hematocrit 38.7 % (37.0-47.0); Hemoglobin 13.2 g/dl (12.0-16.0); Imm Gran Abs Auto 0.02 X10*3/uL (0.00-0.03); Imm Gran Pct Auto 0.4 % (0.0-0.4); Lymphocytes Absolute Auto 1.2 X10*3/uL (1.2-4.9); Lymphocytes Percent Auto 23.8 % (20-40); Mean Corpuscular HGB Conc 34.1 g/dl (31.0-35.0); Mean Corpuscular Hemoglobin 30.4 pg (27.0-33.0); Mean Corpuscular Volume 89.2 fL (80.0-98.0); Mean Platelet Volume 10.4 fL (9.4-12.3); Monocytes Absolute Auto 0.4 X10*3/uL (0.1-1.2); Monocytes Percent Auto 7.5 % (2-11); Neutrophils Absolute Auto 3.2 x10*3/uL (2.0-8.3); Neutrophils Percent Auto 65.3 % (45-73); Platelet Count 134 X10*3/uL (160-400); Red Blood Count 4.34 X10*6/uL (4.20-5.50); Red Cell Distribution Width 13.2 % (11.0-16.0); White Blood Count 4.9 X10*3/uL (4.8-10.8)
[2024-05-21 05:31] LABS: INTERNATIONAL NORM RATIO 1.2 (0.9-1.1); Prothrombin Time 13.8 SEC (10.9-12.4)
[2024-05-21 05:34] LABS: Partial Thromboplastin Time 31.2 SEC (26.0-36.8)
[2024-05-21 05:35] LABS: Alanine Aminotransferase 42 U/L (0-31); Albumin Level 3.9 g/dL (3.5-5.0); Alkaline Phosphatase 80 U/L (39-117); Anion Gap 15 (12-20); Aspartate Amino Transferase 48 U/L (5-31); Bilirubin Total 0.6 mg/dL (0.0-1.0); Blood Urea Nitrogen 16 mg/dL (9-16); Calcium 9.2 mg/dL (8.4-10.2); Carbon Dioxide 23 mmol/L (22-29); Chloride 105 mmol/L (96-108); Creatinine Clr Calc Pharmacy 79.1; Estimated Glomerular Filt Rate > 60; Glucose Random 172 mg/dL (60-115); Lipase 29 U/L (8-78); Potassium 3.9 mmol/L (3.3-5.1); Sodium 139 mmol/L (135-145); Total Protein 7.4 g/dL (6.5-8.0)
[2024-05-21 05:49] LABS: Troponin-I High Sensitivity < 2.7 ng/L (<3.5-17.0)
[2024-05-21] MEDS: 0.9 % Sodium Chloride 1,000 ML 999 ML IV (05:50)
[2024-05-21] MEDS: ondansetron HCL 4 MG/2 ML VIAL IVPUSH (05:50)
--- NOTE | 2024-05-21 06:36 | ED_ITS ---
HPI - General Adult General Chief complaint: Nausea/Vomiting/Diarrhea Stated complaint: DIZZINESS/ VOMITING Time Seen by Provider: 05/21/24 06:35 Source: patient, family (patient's ) and EMS Mode of arrival: EMS Limitations: no limitations History of Present Illness ED Provider: Mehreen Peña PA-C HPI narrative: Patient is a 73 year old assigned female at with a history of atrial fib on Xarelto, HTN, asthma, and DM presenting to the emergency department today with nausea, vomiting, and dizziness. Patient states that she has missed the last 2 days of her Xarelto because she ran out. Patient states that she woke up to go to the bathroom this morning and began to have sudden dizziness, nausea, and vomiting. When asked to describe the dizziness the patient states that the room is spinning and she is having difficulty walking. Patient denies any headache, lightheadedness, abdominal pain, fever, chills, blurry vision, double vision, loss of vision, chest pain, difficulty breathing, shortness of breath, back pain, night sweats, pain with urination, increased urinary frequency, increased urinary urgency, blood in her urine or stool, syncope or a near syncopal episode, recent trauma or falls, bowel incontinence, bladder incontinence, or any other complaints at this time. Onset (ago): hour(s) Relieving factors: none Exacerbating factors: none Associated symptoms: nausea/vomiting Treatments prior to arrival: none Related Data Home Medications ?Medication ?Instructions ?Recorded ?Confirmed cholecalciferol (vitamin D3) 25 25 mcg PO DAILY 04/04/21 05/01/24 mcg (1,000 unit) capsule (Vitamin D3) docusate sodium 100 mg capsule 100 mg PO BEDTIME 08/24/23 05/01/24 Previous Rx's ?Medication ?Instructions ?Recorded blood-glucose meter (FreeStyle #1 ea 04/08/21 Lite Meter kit) lancets 28 gauge (FreeStyle #100 ea 04/08/21 Lancets) alendronate 70 mg tablet 70 mg PO QWEEK #4 tabs 10/31/21 rivaroxaban 20 mg tablet (Xarelto) 20 mg PO DAILY #90 tabs 03/18/23 blood sugar diagnostic (FreeStyle #100 ea 04/06/23 Lite Strips) Updraft machine #1 ea 07/13/23 albuterol sulfate 1.25 mg/3 mL 1.25 mg (3 mL) inhalation QID PRN 07/13/23 solution for nebulization shortness of breath or wheezing #75 mL fluticasone 250 mcg-salmeterol 50 1 inh inhalation BID #60 ea 11/03/23 mcg/dose blistr powdr for inhalation (Advair Diskus) bisacodyl 5 mg tablet,delayed 20 mg (4 x 5 mg) PO ONCE 1 day #4 11/23/23 release (Dulcolax (bisacodyl)) tabs polyethylene glycol 3350 17 238 g PO ONCE #238 grams 11/23/23 gram/dose oral powder (Miralax) albuterol sulfate 90 mcg/actuation 1 inh inhalation QID PRN shortness 12/01/23 aerosol inhaler (Ventolin HFA) of breath or wheezing 30 days #6.7 grams hydrochlorothiazide 25 mg tablet 25 mg PO DAILY 90 days #90 tabs 12/01/23 montelukast 10 mg tablet 10 mg PO BEDTIME #90 tabs 12/27/23 escitalopram oxalate 20 mg tablet 20 mg PO DAILY Anxiety 90 days #90 03/03/24 tabs glipizide 10 mg tablet 10 mg PO BID 90 days #135 tabs 04/06/24 losartan 50 mg tablet 50 mg PO DAILY #90 tabs 04/30/24 pravastatin 20 mg tablet 20 mg PO DAILY 90 days #90 tabs 04/30/24 meclizine 12.5 mg tablet 12.5 mg PO TID PRN dizziness #7 05/21/24 tabs Allergies Allergy/AdvReac Type Severity Reaction Status Date / Time vancomycin [VANCOMYCIN] Allergy Intermediate HIVES, Verified 05/21/24 05:08 ITCHING DEANNA Inhibitors Allergy Mild Cough Verified 05/21/24 05:08 Review of Systems 2 Constitutional: Constitutional: Reports no additional constitutional complaints, Denies chills, Denies fever(s) and Denies night sweats Eyes: Eyes: Reports no additional eye complaints, Denies blurry vision, Denies change in vision, Denies diplopia, Denies eye discharge, Denies loss of vision and Denies eye pain ENT: Reports dizziness Cardiovascular: Cardiovascular: Reports no additional cardiovascular complaints, Denies chest pain, Denies lightheadedness, Denies Loss of Consciousness and Denies dyspnea Respiratory: Respiratory: Reports no additional respiratory complaints and Denies dyspnea Gastrointestinal: Gastrointestinal: Reports no additional gastrointestinal complaints, Denies abdominal pain, Denies melena, Denies hematochezia, Denies change in bowel habits, Denies change in stool character, Reports nausea and Reports vomiting Genitourinary: Genitourinary: Denies hematuria, Denies urinary frequency, Denies dysuria, Denies urinary incontinence, Denies urinary hesitancy and Denies urinary urgency Musculoskeletal: Musculoskeletal: Reports no additional musculoskeletal complaints, Denies numbness and Denies tingling Neurologic: Reports dizziness, Denies loss of vision, Denies numbness and Denies tingling Psychiatric: Psychiatric: Reports no additional psychiatric complaints Endocrine: Endocrine: Reports no additional endocrine complaints Hematologic/Lymphatic: Hematologic/Lymphatic: Reports no additional hematologic/lymphatic complaints Allergic/Immunologic: Allergic/Immunologic: Reports no additional allergic/immunologic complaints PMFSH Past Medical History Attestation statement: The following information was validated with the patient. (all information validated with the patient's ) Source: old records reviewed, obtained from family (patient's provided additional history and confirmed the history provided by the patient) and nursing notes reviewed Medical History Encounter for general adult medical examination with abnormal findings Respiratory tract congestion with cough Asthma exacerbation Asthma, moderate persistent Foot injury Pain of left calf Wound of right ankle Elevated liver enzymes Right flank pain Obesity due to excess calories Preop cardiovascular exam Chest discomfort Tubular adenoma Elevated ferritin Osteoporosis Colon cancer screening Paroxysmal A-fib Asthma Anxiety, generalized Lipid disorder Hypertension, essential Diabetes 1.5, managed as type 2 Surgical History History of colonoscopy Hx of breast biopsy History of liver biopsy History of section Hx of cholecystectomy Family History Family History Father No problems noted. Mother Ovarian cancer Colon cancer Social History Social History Housing: House Alcohol intake: never Patient Tobacco Use Status: Never used Tobacco Smoked in Last 30 Days: No e-Cigarette/Vaping Use: Never Used Use of substances other than those prescribed or required for medical reasons: No Advance Directives: No Advance Directives Information Provided: Yes Do you have a plan to hurt others: No Plan service: No Current occupational status: employed Cognitive needs: No Hearing needs: No Vision needs: Yes Physical Exam ED Vital Signs: Vital Signs - 24 hr 05/21/24 05:01 05/21/24 09:56 05/21/24 10:44 Temperature 97.8 F 97.7 F 97.7 F Pulse Rate 61 78 78 Respiratory Rate 19 16 16 Blood Pressure 149/64 H 145/64 H 145/64 H Pulse Oximetry 98 98 98 Oxygen Delivery Method Room Air Room Air Room Air BMI result Body Mass Index 37.3 Const General: cooperative, no acute distress, alert and awake Nutritional Appearance: well nourished Orientation/consciousness: patient oriented x3 Limitations: no limitations HENMT Head: Yes normal to inspection and Yes atraumatic Ears: hearing grossly normal bilaterally and external ears normal General nose exam: Normal external nose present, no nasal discharge noted and no epistaxis Face and sinus: Yes normal facial exam, No abrasion and No laceration Mouth: Normal oral and palatal mucosa present, no drooling and no muffled voice Eyes General: appearance normal, both eyes and all related structures Periorbital: periorbital findings normal Eyelids: Yes eyelids normal Conjunctivae: conjunctivae normal Pupils: Equal, round and reactive pupils present EOM: EOMs intact bilaterally Neck Neck: Yes normal visual inspection, Yes full ROM and Yes no lymphadenopathy Chest Chest palpation & inspection: normal inspection of the chest Resp Effort & Inspection: normal respiratory effort and able to speak in complete sentences GI Inspection: Yes normal to inspection Neuro General: patient oriented x3 and moves all extremities Cranial nerves: Yes Equal, round and reactive pupils present Cognition (Neuro): normal cognition Extrem General: Yes normal to inspection, Yes full ROM and Yes capillary refill normal Psych Appearance: grossly normal Mental Status: mental status grossly normal Affect: normal affect Attitude: cooperative Thought process: Normal thought process present Thought content: Normal thought content present Insight: Good insight present (Psych) NIH Stroke Scale Internal: Initial- Upon Arrival Time: 06:36 Level of Consciousness: Alert Level of Consciousness Questions: Answers both questions correctly Level of Consciousness Commands: Performs both tasks correctly Best Gaze: Normal Visual: No visual loss Facial Palsy: Normal Motor Arm (Right): No drift Motor Arm (Left): No drift Motor Leg (Right): No drift Motor Leg (Left): No drift Limb Ataxia: Absent Sensory: Normal Best Language: No aphasia Dysarthia: Normal Extinction and Inattention: No abnormality Score: 0 Medications Administered Discontinued Medications Generic Name Dose Route Start Last Admin Trade Name Parris PRN Reason Stop Dose Admin Sodium Chloride 1,000 mls @ 999 mls/hr 05/21/24 05:23 05/21/24 07:20 Ns IV 05/21/24 06:23 Infused .Q1H1M ONE Infusion Iohexol 100 ml 05/21/24 08:11 05/21/24 08:12 Iohexol 350 Mg/Ml 100 Ml Infus..Btl IV 05/21/24 08:12 60 ml ONCE ONE Administration Meclizine HCl 25 mg 05/21/24 06:43 05/21/24 06:50 Meclizine Hcl 25 Mg Tablet PO 05/21/24 06:44 25 mg ONCE ONE Administration Ondansetron HCl 4 mg 05/21/24 05:23 05/21/24 05:50 Ondansetron Hcl 4 Mg/2 Ml Vial IVPUSH 05/21/24 05:24 4 mg ONCE ONE Administration Medical Decision Making Medical Decision Making [facility] Narrative: Patient is a 73 year old assigned female at with a history of atrial fib on Xarelto, HTN, asthma, and DM presenting to the emergency department today with nausea, vomiting, and dizziness. Patient's physical exam was unremarkable. Patient's blood work was unremarkable. Patient's EKG was unremarkable. Patient's CT abd/pelvis showed a left adnexal cyst as well as an enlarged liver but no acute process. Patient's CTA of the head and neck showed no acute process. I explained my physical exam findings as well as all test results to the patient and the patient's . I answered all questions asked by the patient and the patient's . Patient received Meclazine which, upon re-evaluation, she stated it helped her symptoms significantly. I stressed the importance of the patient taking her medication as directed (either prescribed or as the over the counter packaging recommends). I stressed the importance of the patient following up with her primary care provider. I stressed the importance of the patient returning to the emergency department immediately if her symptoms were to worsen or if she were to develop any dizziness, shortness of breath, difficulty breathing, chest pain, blurry vision, loss of vision, nausea, vomiting, abdominal pain, fever, chills, back pain, or any other complaints. Patient verbalized agreement and understanding with this treatment plan and discharge. Differential Diagnosis Differential Diagnoses: The differential diagnosis associated with the presentation includes Vertigo Nausea Vomiting Viral illness Admission/Observation Consideration of admission/observation: Escalation of care including admission/observation considered Patient would have been admitted to the hospital had her work up had any findings where hospital admission was appropriate and her clinical presentation warranted hospital admission. Lab Data [facility] Lab Attestation statement: I reviewed the patient's lab results. My interpretation of these results are in the [facility] Rationale portion of this note. 05/21/24 05:11 05/21/24 05:11 Labs: Lab Results 05/21/24 05/21/24 05/21/24 Range/Units 05:11 05:12 07:15 WBC 4.9 (4.8-10.8) X10*3/uL RBC 4.34 (4.20-5.50) X10*6/uL Hgb 13.2 (12.0-16.0) g/dl Hct 38.7 (37.0-47.0) % MCV 89.2 (80.0-98.0) fL MCH 30.4 (27.0-33.0) pg MCHC 34.1 (31.0-35.0) g/dl RDW 13.2 (11.0-16.0) % Plt Count 134 L (160-400) X10*3/uL MPV 10.4 (9.4-12.3) fL Immature Gran % (Auto) 0.4 (0.0-0.4) % Neut % (Auto) 65.3 (45-73) % Lymph % (Auto) 23.8 (20-40) % Rolette % (Auto) 7.5 (2-11) % Eos % (Auto) 2.6 (0-4) % Baso % (Auto) 0.4 (0-2) % Lymph # (Auto) 1.2 (1.2-4.9) X10*3/uL Rolette # (Auto) 0.4 (0.1-1.2) X10*3/uL Eos # (Auto) 0.1 (0.0-0.4) X10*3/uL Baso # (Auto) 0.0 (0.0-0.2) X10*3/uL Abs Immat Gran (auto) 0.02 (0.00-0.03) X10*3/uL Absolute Neuts (auto) 3.2 (2.0-8.3) x10*3/uL Absolute Nucleated RBC 0.000 (0.0-0.012) X10*3/uL Nucleated RBC % (auto) 0.0 (0.0-0.2) /100WBC PT 13.8 H (10.9-12.4) SEC INR 1.2 H (0.9-1.1) APTT 31.2 (26.0-36.8) SEC Hold Blue Top SEE NOTE Sodium 139 (135-145) mmol/L Potassium 3.9 (3.3-5.1) mmol/L Chloride 105 (96-108) mmol/L Carbon Dioxide 23 (22-29) mmol/L Anion Gap 15 (12-20) BUN 16 (9-16) mg/dL Creatinine 0.65 (0.5-1.4) mg/dL Estim Creat Clear Calc 79.1 Estimated GFR > 60 Random Glucose 172 H (60-115) mg/dL Lactic Acid 2.0 (0.5-2.0) mmol/L Calcium 9.2 (8.4-10.2) mg/dL Total Bilirubin 0.6 (0.0-1.0) mg/dL AST 48 H (5-31) U/L ALT 42 H (0-31) U/L Alkaline Phosphatase 80 (39-117) U/L Troponin I High Sens < 2.7 (<3.5-17.0) ng/L Total Protein 7.4 (6.5-8.0) g/dL Albumin 3.9 (3.5-5.0) g/dL Lipase 29 (8-78) U/L Influenza Type A (PCR) NEGATIVE (Negative) Influenza Type B (PCR) NEGATIVE (Negative) RSV RNA Qual (PCR) NEGATIVE (Negative) SARS-CoV-2 RNA (RT-PCR) NEGATIVE (Negative) Independent Interpretation I performed an independent interpretation of an: EKG and CT Scan Interpretation: My interpretation is in agreement with the radiologist's impression of these imaging studies. L EXAMINATION: CT ABDOMEN AND PELVIS WITHOUT CONTRAST CLINICAL INFORMATION: Abdominal pain COMPARISON: None available. TECHNIQUE: Multidetector volumetric imaging was performed from the superior aspect of the liver through the pubic symphysis. Sagittal and coronal reformatted images were obtained on the technologist's workstation. This CT examination was performed using dose optimization techniques as appropriate, variously including the following: *Automated exposure control *Adjustment of mA and/or kV according to patient size (this includes techniques or standardized protocols for targeted exams where dose is matched to indication/reason for exam; i.e. extremities or head) *Use of iterative reconstruction technique DLP: 798 mGy-cm FINDINGS: LUNG BASES: Mild bibasilar dependent changes. LIVER, GALLBLADDER, AND BILIARY TREE: Right lobe measures 17.3 cm craniocaudal. Nodular contour of the liver. . No focal hepatic lesion or biliary ductal dilatation is present. Gallbladder is not visualized, could be surgically absent versus contracted. Clinically correlate. PANCREAS: Unremarkable. No acute inflammatory changes. SPLEEN: Measures 15.2 cm AP. ADRENAL GLANDS: Unremarkable. KIDNEYS AND URETERS: Homogeneous attenuation. No renal or ureteral calculi. No hydronephrosis. Mild right perinephric stranding. BLADDER: Unremarkable. GASTROINTESTINAL TRACT: Small hiatal hernia. Stomach is partially distended, limiting evaluation. No dilated small or large bowel loops. Colonic diverticulosis. No significant pericolonic inflammatory changes to suggest definite diverticulitis. Small-moderate volume stool in the large colon. Normal appendix. No free fluid. No free air. ABDOMINAL WALL: No significant hernia is appreciated. LYMPH NODES: No pathologically enlarged lymph nodes are seen. VASCULAR: Normal caliber aorta. Atherosclerotic vascular calcification. PELVIC VISCERA: Left adnexal/ovarian cyst measuring 3.3 cm. OSSEOUS STRUCTURES: Multilevel degeneration in the spine. Bilateral SI joint arthritis. Symphysis pubis degeneration. No aggressive or suspicious bony lesion is seen. CT/CT abdomen pelvis wo IV con IMPRESSION: * Right lobe measures 17.3 cm. Nodular contour of the liver, raising concern for metastatic disease. Clinically correlate. * Gallbladder is not visualized, could be surgically absent or contracted. Clinically correlate.. Ultrasound evaluation as clinically indicated. * Colonic diverticulosis without evidence of definite diverticulitis. * Left adnexal/ovarian cyst measuring 3.3 cm. Findings likely represent a probable benign cyst. Recommend followup ultrasonography in 3 months. Alternately, if there are symptoms attributable to this region, evaluation can be obtained at this stage. Fleischner guidelines were followed. Electronically signed by: Cséar Doss MD 05/21/2024 10:32 AM [facility] Dictated By: César Doss MD Signed By: Electronically signed by César Doss MD 05/21/[address] HEAD CTA HEAD AND NECK HISTORY: dizziness, N/V TECHNIQUE: Serial axial images were obtained on a multidetector CT through the head without the use of intravenous contrast, as per the standard departmental protocol. Multiplanar 2D MPR reformatted images were then obtained. CTA of the head and neck was performed after the administration of intravenous contrast according to the departmental protocol. MIP 3D angiographic rendering was then performed at the scanner. Evaluation for stenosis of the carotid arteries was made based on NASCET criteria, with evaluation of any areas of focal narrowing relative to the distal vessel (using minimal luminal diameter). Measurement of the distal internal carotid artery diameter was used as the denominator for stenosis measurement. Contrast was administered given the patient's clinical history. 65 mL Omnipaque [address] exams at this location are performed using dose optimization techniques as appropriate to a performed exam including at least one of the following: * Automated exposure control * Adjustment of the mA and/or kV according to patient size (this includes techniques or standardized protocols for targeted exams where dose is matched to indication / reason for exam; i/e/ extremities or head) * Use of iterative reconstructive technique DLP: 2181 mGy-cm COMPARISON: None FINDINGS: CT Head: The ventricles, sulci and cisterns are age-appropriate. There is no mass-effect, midline shift, or space-occupying lesion. There is no acute intracranial hemorrhage or extra-axial fluid collection. There is no acute territorial infarct. The visualized paranasal sinuses are clear. The mastoid air cells are clear. The orbits and soft tissues are unremarkable. There is no displaced calvarial fracture. CTA Head: Atherosclerotic calcified plaque is noted involving the cavernous and supraclinoid portions of the internal carotid arteries, without significant stenosis. The anterior and middle cerebral arteries are patent with normal contrast enhancement and branching pattern. There is a normal anterior communicating artery complex. The vertebral and basilar arteries demonstrate normal enhancement without stenosis or occlusion. The posterior cerebral arteries have a normal caliber and branching pattern. There is a origin of the right posterior cerebral artery, a normal variant. The left posterior communicating artery is unremarkable. There is no evidence of stenosis, occlusion, aneurysm or arteriovenous malformation. CTA Neck: The visualized aortic arch and origins of the major vessels are unremarkable. Retropharyngeal course of the common carotid artery on the right. The right common, internal and external carotid arteries are otherwise normal in appearance. There is no evidence of a significant stenosis by NASCET criteria or a dissection. Retropharyngeal course of the common and internal carotid artery on the left. The left common, internal and external carotid arteries are otherwise normal in appearance. There is no evidence of a significant stenosis by NASCET criteria or a dissection. The cervical portions of the vertebral arteries demonstrate normal enhancement. There is no evidence of a significant stenosis or a dissection. The visualized soft tissues are unremarkable. The visualized lung is unremarkable. The visualized osseous structures are unremarkable aside from mild degenerative disease. CT/CT angio head neck IMPRESSION: 1. No acute intracranial pathology. 2. No large vessel occlusion. 3. No significant stenosis in the major arteries of the head and neck. Electronically signed by: Ghazala Schneider MD 05/21/2024 09:17 AM [facility] Dictated By: Ghazala Schneider MD Signed By: Electronically signed by Ghazala Schneider MD 05/21/24 0917 Vent. Rate: 053 BPM Atrial Rate: 057 BPM P-R Int: 000 ms QRS Dur: 084 ms QT Int: 486 ms P-R-T Axes: 000 -02 051 degrees QTc Int: 456 ms Undetermined rhythm Low voltage QRS Cannot rule out Anterior infarct (cited on or before 11-JAN-2009) When compared with ECG of 11-JAN-2009 14:47, Current undetermined rhythm precludes rhythm comparison, needs review Criteria for Inferior infarct are no longer Present T wave inversion no longer evident in Anterolateral leads QT has shortened DD/ 0501 Radiology Impression Discussion of test interpretation with radiology: I have reviewed the radiologist's reading. Independent Historian Clinical information obtained from an independent historian. History obtained from or confirmed by: Spouse (patient's provided additional history and confirmed the history provided by the patient.) and EMS (EMS provided additional history and confirmed the history provided by the patient.) Discharge Plan Discharge Clinical Impression: Dizziness, Nausea & vomiting Patient Disposition: Home, Self-Care Instructions: Vertigo (DC), Acute Nausea and Vomiting (ED), Dizziness (ED) Additional Instructions: Your work up is reassuring that no emergent process is going on at this time. Your CTA of the head and neck showed no acute stroke. Your abdominal CT scan showed an enlarged liver and a left adnexal/ovarian cyst. Both of these things need to be followed up on by your primary care provider. Follow up with your primary care provider. Return to the emergency department immediately if your symptoms worsen or if you develop any dizziness, shortness of breath, difficulty breathing, chest pain, blurry vision, loss of vision, nausea, vomiting, abdominal pain, fever, chills, back pain, or any other complaints. Prescriptions: New meclizine 12.5 mg tablet 12.5 mg PO TID PRN (Reason: dizziness) Qty: 7 0RF No Action (DME) lancets [FreeStyle Lancets] 28 gauge misc See Rx Instructions .Route Qty: 100 0RF Rx Instructions: Patient to check blood sugar once daily or as needed (DME) blood-glucose meter [FreeStyle Lite Meter] Kit See Rx Instructions .Route Qty: 1 0RF Rx Instructions: Patient to check blood sugar once daily or as needed Xarelto 20 mg tablet 20 mg PO DAILY Qty: 90 3RF (DME) FreeStyle Lite Strips Strip See Rx Instructions .Route Qty: 100 0RF Rx Instructions: patient to check blood sugar once daily or as needed fluticasone propion-salmeterol [Advair Diskus] 250-50 mcg/dose blister with device 1 inh inhalation BID Qty: 60 0RF montelukast 10 mg tablet 10 mg PO BEDTIME Qty: 90 1RF escitalopram oxalate 20 mg tablet 20 mg PO DAILY 90 Days Qty: 90 0RF glipizide 10 mg tablet 10 mg PO BID 90 Days Qty: 135 0RF Rx Instructions: One in the morning and half at night pravastatin 20 mg tablet 20 mg PO DAILY 90 Days Qty: 90 0RF losartan 50 mg tablet 50 mg PO DAILY Qty: 90 0RF cholecalciferol (vitamin D3) [Vitamin D3] 25 mcg (1,000 unit) Capsule 25 mcg PO DAILY alendronate 70 mg tablet 70 mg PO QWEEK Qty: 4 1RF (DME) Updraft machine See Rx Instructions .Route .MEDSUPPLY Qty: 1 0RF Rx Instructions: As directed albuterol sulfate 1.25 mg/3 mL solution for nebulization 1.25 mg inhalation QID PRN (Reason: shortness of breath or wheezing) Qty: 75 0RF albuterol sulfate [Ventolin HFA] 90 mcg/actuation HFA aerosol inhaler 1 inh inhalation QID PRN (Reason: shortness of breath or wheezing) 30 Days Qty: 6.7 2RF hydrochlorothiazide 25 mg tablet 25 mg PO DAILY 90 Days Qty: 90 1RF bisacodyl [Dulcolax (bisacodyl)] 5 mg tablet,delayed release (DR/EC) 20 mg PO ONCE 1 Days Qty: 4 0RF Rx Instructions: take 4 tabs at noon the day before your colonoscopy polyethylene glycol 3350 [Miralax] 17 gram/dose powder 238 g PO ONCE Qty: 238 0RF Rx Instructions: As directed by gastroenterology department at [facility] docusate sodium 100 mg capsule 100 mg PO BEDTIME Referrals: Johny Adorno MD [Primary Care Provider] - Interventions: ED Discharge Assessment Last Done: 05/21/24 10:44 Print Language: [place]
--- NOTE | 2024-05-21 06:43 | PC.NURSE ---
pt assisted onto bedpan at this time. pt noted to have very large bowel movement, pt assisted in bed change.
[2024-05-21] MEDS: Meclizine HCl 25 MG TABLET PO (06:50)
--- NOTE | 2024-05-21 07:21 | PC.NURSE ---
swabs obtained/sent to lab. pt verbalizes decrease in dizziness s/p medication administration by previous RN. pt waiting to go to CT at this time. respirations even/unlabored. bedside for support. plan of care ongoing. call [place] placed within reach.
--- NOTE | 2024-05-21 07:41 | PC.NURSE ---
pt to CT at this time. plan of care ongoing.
[2024-05-21] MEDS: iohexoL 350 MG/ML 100 ML INFUS..BTL IV (08:12)
[2024-05-21 08:13] LABS: Influenza A PCR NEGATIVE (Negative); Influenza B PCR NEGATIVE (Negative); Resp Syncy Virus RNA Qual PCR NEGATIVE (Negative); SARS COV2 PCR INHOUSE NEGATIVE (Negative)
[2024-05-21 09:56] VITALS: BP 145/64; PULSE 78; RESP 16; TEMP 36.5; O2SAT 98
[2024-05-21 10:44] VITALS: BP 145/64; PULSE 78; RESP 16; TEMP 36.5; O2SAT 98
== END 2024-05-21 11:09 | disposition home or self-care (01) ==
PROVIDERS: Internal Medicine; Physician Assistant Medical; Emergency Provider Emergency Medicine Emergency Medical Services; PCP Internal Medicine
DX: R42 Dizziness and giddiness (principal); R11.2 Nausea with vomiting, unspecified; I48.91 Unspecified atrial fibrillation; M54.2 Cervicalgia; R10.2 Pelvic and perineal pain; I10 Essential (primary) hypertension; E11.9 Type 2 diabetes mellitus without complications; Z79.01 Long term (current) use of anticoagulants; Z79.899 Other long term (current) drug therapy; Z03.818 Encounter for observation for suspected exposure to other biological agents ruled out
CPT/HCPCS: 0241U; 36415; 70496; 70498; 74176; 80053; 83605; 83690; 84484; 85025; 85610; 85730; 87040; 93005; 96361; 96374; 99285; J2405; Q9967

== ENCOUNTER → 2024-05-21 05:01 | Outpatient (BNV) | payer MEDICARE, SELFPAY | PROVIDERS: Emergency Provider Emergency Medicine Emergency Medical Services; PCP Internal Medicine; Visit Provider Internal Medicine Cardiovascular Disease | DX: I48.91 Unspecified atrial fibrillation (principal) | CPT/HCPCS: 93010 ==

== ENCOUNTER 2024-05-24 13:37 | Outpatient (AMB) | payer MEDICARE, SELFPAY ==
[2024-05-24 14:17] VITALS: BP 134/86; PULSE 74; TEMP 36.3; O2SAT 97; BMI 37.1
--- NOTE | 2024-05-24 14:17 | AM.OFFWIN_ITS ---
Intake Vital Signs 05/24/24 14:17 Height 5 ft 2 in Weight 203 lb BMI 37.1 BP 134/86 Blood Pressure Location Lt brachial Position Sitting Pulse 74 Pulse Source Pulse Oximeter Temp 97.4 F Temp Source Temporal Artery Scan Pulse Oximetry (%) 97 Oxygen Delivery Method Room Air Intake Visit Reasons: EP-dizziness, nausea Intake Note: Pt presents to the office today for c/o dizziness and nausea x3 days. Pt states she went to the ED on 05/21/24 and was diagnosed with vertigo and has been having issues with dizziness and nausea especially at nighttime when she turns over in bed. Patient Tobacco Use Status: Never used Tobacco Allergies vancomycin [VANCOMYCIN] Allergy (Intermediate, Verified 05/24/24 14:20) HIVES, ITCHING DEANNA Inhibitors Allergy (Mild, Verified 05/24/24 14:20) Cough HPI EP-dizziness, nausea HPI Details This note is constructed using voice recognition software. While every effort has been made to ensure accuracy, dog sitter errors may have been included. The patient is a 73 year old female who presents to the clinic today with recent diagnosis of vertigo. The patient was seen in the emergency room 3 days ago, diagnosed with vertigo after an extensive workup. She was sent home with meclizine, which she does report help the symptoms quite a bit. She reports that the emergency room was also going to send over a nausea medication but had not sent that over. She put a requesting to have these medications filled by her primary care provider. Unbeknownst to her her PCP has already sent over these medications to her pharmacy. She denies any new symptoms, any headaches, any falls. She does report that she had 3 episodes of vertigo last night, they are not constant, but when they occur they make her feel quite off balance. She does make sure to sit. She is not driving at all during these events. [facility] Medical History Encounter for general adult medical examination with abnormal findings Respiratory tract congestion with cough Asthma exacerbation Asthma, moderate persistent Foot injury Pain of left calf Wound of right ankle Elevated liver enzymes Right flank pain Obesity due to excess calories Preop cardiovascular exam Chest discomfort Tubular adenoma Elevated ferritin Osteoporosis Colon cancer screening Paroxysmal A-fib Asthma Anxiety, generalized Lipid disorder Hypertension, essential Diabetes 1.5, managed as type 2 Surgical History History of colonoscopy Hx of breast biopsy History of liver biopsy History of section Hx of cholecystectomy Family History Father No problems noted. Mother Ovarian cancer Colon cancer Social History Housing: House Alcohol intake: never Patient Tobacco Use Status: Never used Tobacco e-Cigarette/Vaping Use: Never Used service: No Current occupational status: employed Cognitive needs: No Hearing needs: No Vision needs: Yes Review of Systems Const All systems reviewed & are unremarkable except as noted in HPI and below Physical Exam Vital Signs: Last Vital Signs Temp 97.4 F 05/24/24 14:17 Pulse 74 05/24/24 14:17 BP 134/86 05/24/24 14:17 Pulse Ox 97 05/24/24 14:17 Oxygen Delivery Method Room Air 05/24/24 14:17 BMI result Body Mass Index 37.1 Const General: cooperative, healthy appearing, comfortable, no acute distress and well developed Orientation/consciousness: patient oriented x3 Limitations: no limitations HEENT Head: Yes normal to inspection Ears: hearing grossly normal bilaterally General nose exam: Normal external nose present Face and sinus: Yes normal facial exam Eyes Other: EOMI. Horizontal nystagmus present. General: appearance normal, both eyes and all related structures Neck Neck: Yes normal visual inspection and Yes full ROM Resp Effort & Inspection: normal respiratory effort and able to speak in complete sentences Auscultation: clear to auscultation bilaterally Cardio Rate: regular rate Rhythm: regular rhythm Heart sounds: normal S1 and S2 Neuro General: patient oriented x3 Assessment & Plan Assessment & Plan (1) Vertigo: Code(s): R42 - Dizziness and giddiness Plan: Emergency room note reviewed. Discussed ongoing treatment with meclizine as needed as well as Zofran for symptomatic management. PCP has already sent refills as requested. Advised patient to keep follow up appointment as scheduled with PCP. Plan See above for full details and plan. Coding Level of Care Code Est Pt Level 3 (70197) Diagnoses Vertigo R42
== END 2024-05-24 15:13 | disposition home or self-care (01) ==
PROVIDERS: PCP Internal Medicine; Visit Provider Registered Nurse
DX: R42 Dizziness and giddiness (principal)

== ENCOUNTER → 2024-05-24 13:37 | Outpatient (BNVA) | payer MEDICARE, SELFPAY | PROVIDERS: PCP Internal Medicine; Visit Provider Registered Nurse | DX: R42 Dizziness and giddiness (principal) | CPT/HCPCS: 99212 ==

== ENCOUNTER 2024-06-02 10:25 | Outpatient (AMB) | payer MEDICARE, SELFPAY ==
[2024-06-02 10:36] VITALS: BP 140/82; PULSE 76; O2SAT 98; BMI 39.0
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
== END 2024-06-02 10:51 | disposition home or self-care (01) ==
PROVIDERS: PCP Internal Medicine; Visit Provider Internal Medicine
DX: H81.13 Benign paroxysmal vertigo, bilateral (principal); R93.2 Abnormal findings on diagnostic imaging of liver and biliary tract; E13.9 Other specified diabetes mellitus without complications; I48.0 Paroxysmal atrial fibrillation; I10 Essential (primary) hypertension; E78.9 Disorder of lipoprotein metabolism, unspecified; F41.1 Generalized anxiety disorder; M81.8 Other osteoporosis without current pathological fracture

== ENCOUNTER → 2024-06-02 10:25 | Outpatient (BNVA) | payer MEDICARE, SELFPAY | PROVIDERS: PCP Internal Medicine; Visit Provider Internal Medicine | DX: H81.10 Benign paroxysmal vertigo, unspecified ear (principal); R93.2 Abnormal findings on diagnostic imaging of liver and biliary tract; E13.9 Other specified diabetes mellitus without complications; I10 Essential (primary) hypertension; E78.9 Disorder of lipoprotein metabolism, unspecified; F41.1 Generalized anxiety disorder; I48.0 Paroxysmal atrial fibrillation; M81.8 Other osteoporosis without current pathological fracture | CPT/HCPCS: 99212 ==

== ENCOUNTER → 2024-07-07 13:06 | Outpatient (BNVA) | payer MEDICARE, SELFPAY | PROVIDERS: PCP Internal Medicine; Visit Provider Nurse Practitioner Family | DX: Z09 Encounter for follow-up examination after completed treatment for conditions other than malignant neoplasm (principal); I48.0 Paroxysmal atrial fibrillation; I10 Essential (primary) hypertension; H81.10 Benign paroxysmal vertigo, unspecified ear | CPT/HCPCS: 99212 ==

== ENCOUNTER → 2024-07-21 12:34 | Outpatient (AMB) | payer MEDICARE, SELFPAY | END | disposition home or self-care (01) | PROVIDERS: PCP Internal Medicine; Visit Provider Nurse Practitioner Family | CPT/HCPCS: 99214; G2211 ==

== ENCOUNTER → 2024-07-21 12:34 | Outpatient (BNVA) | payer MEDICARE, SELFPAY | PROVIDERS: PCP Internal Medicine; Visit Provider Nurse Practitioner Family | DX: R93.2 Abnormal findings on diagnostic imaging of liver and biliary tract (principal); E78.9 Disorder of lipoprotein metabolism, unspecified; R74.8 Abnormal levels of other serum enzymes; R16.0 Hepatomegaly, not elsewhere classified; K59.01 Slow transit constipation; K76.0 Fatty (change of) liver, not elsewhere classified; I25.10 Atherosclerotic heart disease of native coronary artery without angina pectoris; R79.89 Other specified abnormal findings of blood chemistry; R10.9 Unspecified abdominal pain; Z83.3 Family history of diabetes mellitus | CPT/HCPCS: 99212 ==

== ENCOUNTER 2024-08-23 11:12 | Outpatient (REF) | payer MEDICARE, SELFPAY ==
[2024-08-23 14:00] LABS: INTERNATIONAL NORM RATIO 1.2 (0.9-1.1); Prothrombin Time 14.5 SEC (10.9-12.4)
[2024-08-23 14:03] LABS: Estimated Average Glucose 131 mg/dL; Hemoglobin A1C 156.7082 umol/L; Hemoglobin A1c % 6.2 % (<6.0)
[2024-08-23 14:13] LABS: Alanine Aminotransferase 42 U/L (0-31); Albumin Level 4.1 g/dL (3.5-5.0); Alkaline Phosphatase 57 U/L (39-117); Aspartate Amino Transferase 61 U/L (5-31); Bilirubin Direct 0.4 mg/dL (0.0-0.5); Bilirubin Total 1.1 mg/dL (0.0-1.0); Cholesterol 155 mg/dL (<200); HDL Cholesterol 48 mg/dL (>40); LDL Cholesterol Calculated 80 mg/dL (<100); Triglycerides 139 mg/dL (<150)
[2024-08-23 14:20] LABS: Ferritin 427 ng/mL (10-250)
[2024-08-24 10:18] LABS: Alpha Fetoprotein 5.1 ng/mL
[2024-08-24 16:09] LABS: Transglutaminase IgA <1.0 U/mL
[2024-08-24 17:23] LABS: Ceruloplasmin 27 mg/dL (14-48)
[2024-08-29 01:38] LABS: FIB-ALT 31 U/L (6-29); FIB-Alpha-2-Macroglobulin 319 mg/dL (106-279); FIB-Apolipoprotein A1 166 mg/dL (101-198); FIB-GGT 41 U/L (3-65); FIB-Haptoglobin 175 mg/dL (43-212); FIB-Total Bilirubin 0.9 mg/dL (0.2-1.2); Liver Fibrosis Score 0.56; Liver Fibrosis Stage F2; Nec Inflam Act Grade A0-A1; Nec Inflam Act Score 0.21
[2024-08-29 12:19] LABS: Smooth Muscle Antibody <20 U (<20)
[2024-08-30 10:58] LABS: Mitochondrial Antibodies NEGATIVE (NEGATIVE)
== END 2024-08-23 11:13 | disposition home or self-care (01) ==
LOC: HO.HMGCLDS 11:12
PROVIDERS: PCP Internal Medicine; Visit Provider Nurse Practitioner Family
DX: R79.89 Other specified abnormal findings of blood chemistry (principal); R74.8 Abnormal levels of other serum enzymes; R74.01 Elevation of levels of liver transaminase levels; I25.10 Atherosclerotic heart disease of native coronary artery without angina pectoris; Z83.3 Family history of diabetes mellitus; R10.9 Unspecified abdominal pain; K76.0 Fatty (change of) liver, not elsewhere classified
CPT/HCPCS: 36415; 80061; 80076; 81596; 82105; 82390; 82728; 83036; 85610; 86015; 86364; 86381

== ENCOUNTER 2024-08-29 11:14 | Outpatient (AMB) | payer MEDICARE, SELFPAY ==
--- NOTE | 2024-08-29 11:16 | A.OFFPC_ITS ---
Vital Signs 08/29/24 11:17 Height 5 ft 2 in Weight 195 lb BMI 35.7 BP 116/72 Blood Pressure Location Lt brachial Position Sitting Respiration 16 Pulse 67 Pulse Source Pulse Oximeter Pulse Oximetry (%) 97 Oxygen Delivery Method Room Air Intake Visit Reasons: 3 month follow up - see comments Allergies vancomycin [VANCOMYCIN] Allergy (Intermediate, Verified 08/29/24 11:23) HIVES, ITCHING DEANNA Inhibitors Allergy (Mild, Verified 08/29/24 11:23) Cough Medication List - Last Reconciled 08/29/24 by Johny Adorno MD albuterol sulfate 1.25 mg (3 mL) inhalation QID PRN albuterol sulfate 90 mcg/actuation (Ventolin HFA) 1 inh inhalation QID PRN 30 days alendronate 70 mg PO QWEEK blood sugar diagnostic (FreeStyle Lite Strips) patient to check blood sugar once daily or as needed blood-glucose meter (FreeStyle Lite Meter kit) Patient to check blood sugar once daily or as needed cholecalciferol (vitamin D3) (Vitamin D3) 25 mcg PO DAILY escitalopram oxalate 20 mg PO DAILY 90 days fluticasone propion-salmeterol 250-50 mcg/dose (Advair Diskus) 1 inh inhalation BID glipizide 10 mg PO BID 90 days hydrochlorothiazide 25 mg PO DAILY 90 days lancets (FreeStyle Lancets) Patient to check blood sugar once daily or as needed losartan 50 mg PO DAILY meclizine 12.5 mg PO TID PRN 30 days montelukast 10 mg PO BEDTIME ondansetron HCl 4 mg PO DAILY PRN 30 days polyethylene glycol 3350 (Miralax) 238 grams PO ONCE pravastatin 20 mg PO DAILY 90 days rivaroxaban (Xarelto) 20 mg PO DAILY [Updraft machine As directed] Tobacco use date assessed: 08/29/24 Fall risk assessment: No Falls in past year Last assessed Fall Risk: 08/29/24 Dental Screening Dental Screen Date: 08/29/24 Did you have a dental visit in the last 12 months?: Yes Did you have a dental problem in the last 6 months where you did not have access to dental care?: No Was dental information given to patient?: Patient has dentist HPI 3 month follow up - see comments HPI Details History - The patient is a 73-year-old female pr esenting for regular follow-up appointment Her dizziness has started again, patient need a refill on meclizine she has started the vestibular therapy on her own at home which is helping just a little bit During evenings patient like to sit on a rocking chair when she stands up that is when she feels really dizzy We talked about the position of head and vertigo I would recommend to stop rocking the chair And continue meclizine - Iron levels elevated to 427, significa ntly surpassing the normal range since last laboratory evaluation. - Negative for hemochromatosis since evaluated - Lifestyle changes include improved t and increased physical activity. - Upcoming follow-up with a gastroentero logist includes iron level reevaluation and scheduled imaging. - Reports of cataracts impacting night d riving, increasing anxiety during specific situations. - Previous panic attack in February occ urred amidst driving stress caused by has been sitting next to her yelling at her Patient is tearful talking about it - Communication with her spouse rashidin g negative interactions led to improvements. - Patient reports of 's memory la pses and behavioral changes suggestive of cognitive decline. - asthma is stable taking inhaler - taking anxiety medication - blood pressure well-controlled - sugar well-controlled - continue alendronate for osteoporosis - continue lipid medication Medications - Lexapro 20 mg for anxiety - Advair for respiratory management - Glipizide, twice daily, for blood suga r management - Hydrochlorothiazide for blood pressure - Losartan 50 mg for hypertension - Montelukast for allergies - Pravastatin 20 mg for cholesterol savita gement - Meclizine for dizziness, patient asked for refill Problem List - Dizziness - Iron overload - Cataracts - Panic attack history - Elevated liver enzymes - Type 2 Diabetes Mellitus - Hypertension - Allergies - Hyperlipidemia - Anxiety Disorder - Vestibular disorder - stress at home Diagnostic results - Labs: - Iron: 427 (August 2022) - AST: 61 - ALT: 42 [place] of Care: Gastroenterology [facility] Cardiology [facility] Patient Instructions - Continue current medications as prescr ibed. - Patient advised to repeat iron levels and liver enzyme tests next month. - Plan lifestyle modifications focusing on diet and exercise. - Discuss with the importance of a potential medical evaluation for memory issues. - Engage in vestibular exercises at home and seek physical therapy if symptoms persist. - Consider obtaining [id number]-yyz-usbralt an tihistamines like Claritin or Zyrtec for allergy management. Review of Systems - Psychological: Reports stress and anxi ety due to interpersonal issues with spouse. General: No fever no chills neurological: No headaches ear nose throat: No sore throat no hearing difficulty no ear pain cardiovascular: No syncope, no chest pain, no palpitations gastrointestinal: No nausea vomiting or diarrhea endocrine: No polyuria polydipsia no heat intolerance genitourinary: No dysuria skin: No new complaints Physical Exam general: No acute distress HEENT: Slight inflammation, no infection neck: Supple respiratory system: Able to talk in full sentences, no audible wheeze no stridor cardiovascular: S1-S2 gastrointestinal: No pain extremities: No new findings SAT INSTRUCTOR: Alert awake oriented x3 motor sensory intact skin: Normal turgor PFSH Medical History Elevated ferritin Encounter for general adult medical examination with abnormal findings Respiratory tract congestion with cough Asthma exacerbation Asthma, moderate persistent Foot injury Pain of left calf Wound of right ankle Elevated liver enzymes Right flank pain Obesity due to excess calories Preop cardiovascular exam Chest discomfort Tubular adenoma Osteoporosis Colon cancer screening Paroxysmal A-fib Asthma Anxiety, generalized Lipid disorder Hypertension, essential Diabetes 1.5, managed as type 2 Surgical History History of colonoscopy Hx of breast biopsy History of liver biopsy History of section Hx of cholecystectomy Family History Father No problems noted. Mother Ovarian cancer Colon cancer Social History Housing: House Alcohol intake: never Patient Tobacco Use Status: Never used Tobacco e-Cigarette/Vaping Use: Never Used service: No Current occupational status: employed Cognitive needs: No Hearing needs: No Vision needs: Yes Questionnaire PHQ-9 Over the last 2 weeks, how often have you been bothered by any of the following problems? 1. Little interest or pleasure in doing things: several days 2. Feeling down, depressed, or hopeless: several days 3. Trouble falling or staying asleep, or sleeping too much: not at all 4. Feeling tired or having little energy: several days 5. Poor appetite or overeating: not at all 6. Feeling bad about yourself - or that you are a failure or have let yourself or your family down: not at all 7. Trouble concentrating on things, such as reading the newspaper or watching television: not at all 8. Moving or speaking so slowly that other people could have noticed. Or the opposite - being so fidgety or restless that you have been moving around a lot more than usual: not at all 9. Thoughts that you would be better off or of hurting yourself in some way: not at all Total score: 3 Depression Screening Interpretation: Negative Depression Screening Done: Yes 44382 - PHQ-9 Billing: Yes Source: Developed by Drs. Bogdan So, Michelle Cuevas, Lamberto Pruett and colleagues, with an educational james from [employer]. Thrive Questionnaire Date Thrive assessed: 08/29/24 I am a: Patient What is your living situation today?: I have a steady place to live Within the past 12 months, did the food you bought not last and you didn't have the money to get more?: Never true Within the past 12 months, did you worry whether your food would run out before you got money to buy more?: Never true Do you have trouble paying for medicines?: No Do you have trouble getting transportation to medical appointments?: No Do you have trouble paying your heating and electricity bill?: No Do you have trouble taking care of your child, family member or friend?: No Do you have trouble with day-to-day activities such as bathing, preparing meals, shopping, managing finances, etc.?: No Are you currently unemployed and looking for a job?: No Are you interested in more education?: No Please select the resources that you would like help with: None Currently or been in a relationship where the following occur: I choose not to answer THRIVE Score: 0 AUDIT C Alcohol Use Questionnaire (AUDIT-C) 1. How often do you have a drink containing alcohol?: Never 3. How often do you have six or more drinks on one occasion?: Never Total Score: 0 Score Reviewed/Action Taken: Yes SEAN-7 AMB Questionnaire SEAN-7 Date SEAN - 7 assessed: 08/29/24 Feeling nervous, anxious, or on edge: 1 = Several days Not being able to stop or control worryin = Not at all Worrying too much about different things: 0 = Not at all Trouble relaxin = More than half the days Being so restless that it is hard to sit still: 0 = Not at all Becoming easily annoyed or irritable: 1 = Several days Feeling afraid as if something awful might happen: 0 = Not at all Total SEAN-7 score (0-4 normal; 5-9 mild; 10-14 moderate; 15-21 severe): 4 Source: Developed by Drs. Bogdan So, Michelle Cuevas, Lamberto Pruett and colleagues, with an educational james from [employer]. SEAN-7 Assessment Billing SEAN-7 Assessment Tool: SEAN-7 Assessment 14015 Physical exam (Primary Care) Vital Signs: Last Vital Signs Pulse 67 08/29/24 11:17 Resp 16 08/29/24 11:17 BP 116/72 08/29/24 11:17 Pulse Ox 97 08/29/24 11:17 Oxygen Delivery Method Room Air 08/29/24 11:17 BMI result Body Mass Index 35.7 Tobacco/Smoking Status: Tobacco use Status Tobacco use date assessed 08/29/24 08/29/24 11:24 Patient Tobacco Use Status Never used Tobacco 08/29/24 11:20 e-Cigarette/Vaping Use Never Used 08/29/24 11:20 PHQ-9: PHQ-9 Score PHQ-9: Total score 3 08/29/24 11:55 Depression Screening Interpretation: Negative Thrive Assessment: Date of Thrive Assessment Date Thrive assessed 08/29/24 08/29/24 11:24 Currently or been in a relationship where the following occur: I choose not to answer Coding Level of Care Code Est Pt Level 5 (12730) Complex EM visit Add On G2211 Diagnoses Stress at home F43.9 Elevated ferritin R79.89 Benign paroxysmal positional vertigo, unspecified laterality H81.10 Laterality: unspecified laterality Panic attack F41.0 Domestic problems Z65.8 Diabetes 1.5, managed as type 2 E13.9 Lipid disorder E78.9 Hypertension, essential I10 Anxiety, generalized F41.1 Paroxysmal A-fib I48.0 Other osteoporosis, unspecified pathological fracture presence M81.8 Osteoporosis type: other Presence of current pathological fracture: unspecified Additional Codes SEAN-7 Assessment Billing - SEAN-7 Assessment Tool: SEAN-7 Assessment 41092 ([id number]) PHQ-9 - 14453 - PHQ-9 Billing: Yes ([id number]) Time Spent (min) 43 Comment Counseling provided due to stress at home related to Assessment & Plan Assessment & Plan (1) Stress at home: Code(s): F43.9 - Reaction to severe stress, unspecified Category: Social Hx (2) Elevated ferritin: Code(s): R79.89 - Other specified abnormal findings of blood chemistry Category: Medical (3) Benign positional vertigo: Code(s): H81.10 - Benign paroxysmal vertigo, unspecified ear Category: Medical Qualifiers: Laterality: unspecified laterality Qualified Code(s): H81.10 - Benign paroxysmal vertigo, unspecified ear (4) Panic attack: Code(s): F41.0 - Panic disorder [episodic paroxysmal anxiety] Category: Medical (5) Domestic problems: Code(s): Z65.8 - Other specified problems related to psychosocial circumstances Category: Social Hx (6) Diabetes 1.5, managed as type 2: Code(s): E13.9 - Other specified diabetes mellitus without complications Category: Medical (7) Lipid disorder: Code(s): E78.9 - Disorder of lipoprotein metabolism, unspecified Category: Medical (8) Hypertension, essential: Code(s): I10 - Essential (primary) hypertension Category: Medical (9) Anxiety, generalized: Code(s): F41.1 - Generalized anxiety disorder Category: Medical (10) Paroxysmal A-fib: Comment: follows w/HCS Code(s): I48.0 - Paroxysmal atrial fibrillation Category: Medical (11) Osteoporosis: Code(s): M81.0 - Age-related osteoporosis without current pathological fracture Category: Medical Qualifiers: Osteoporosis type: other Presence of current pathological fracture: unspecified Qualified Code(s): M81.8 - Other osteoporosis without current pathological fracture Plan History - The patient is a 73-year-old female presenting for regular follow-up appointment Her dizziness has started again, patient need a refill on meclizine she has started the vestibular therapy on her own at home which is helping just a little bit During evenings patient like to sit on a rocking chair when she stands up that is when she feels really dizzy We talked about the position of head and vertigo I would recommend to stop rocking the chair And continue meclizine - Iron levels elevated to 427, significantly surpassing the normal range since last laboratory evaluation. - Negative for hemochromatosis since 2020 evaluated - Lifestyle changes include improved diet and increased physical activity. - Upcoming follow-up with a senior director of strategy includes iron level reevaluation and scheduled imaging. - Reports of cataracts impacting night driving, increasing anxiety during specific situations. - Previous panic attack in February occurred amidst driving stress caused by has been sitting next to her yelling at her Patient is tearful talking about it - Communication with her spouse regarding negative interactions led to improvements. - Patient reports of 's memory lapses and behavioral changes suggestive of cognitive decline. - asthma is stable taking inhaler - taking anxiety medication - blood pressure well-controlled - sugar well-controlled - continue alendronate for osteoporosis - continue lipid medication Medications - Lexapro 20 mg for anxiety - Advair for respiratory management - Glipizide, twice daily, for blood sugar management - Hydrochlorothiazide for blood pressure - Losartan 50 mg for hypertension - Montelukast for allergies - Pravastatin 20 mg for cholesterol management - Meclizine for dizziness, patient asked for refill Problem List - Dizziness - Iron overload - Cataracts - Panic attack history - Elevated liver enzymes - Type 2 Diabetes Mellitus - Hypertension - Allergies - Hyperlipidemia - Anxiety Disorder - Vestibular disorder - stress at home Diagnostic results - Labs: - Iron: 427 (August 2022) - AST: 61 - ALT: 42 [place] of Care: Gastroenterology [facility] Cardiology [facility] Patient Instructions - Continue current medications as prescribed. - Patient advised to repeat iron levels and liver enzyme tests next month. - Plan lifestyle modifications focusing on diet and exercise. - Discuss with the importance of a potential medical evaluation for memory issues. - Engage in vestibular exercises at home and seek physical therapy if symptoms persist. - Consider obtaining tztk-bks-qoevbpi antihistamines like Claritin or Zyrtec for allergy management. Orders: Orders Ferritin 4 Weeks E13.9 - Other specified diabetes mellitus without complications, E78.9 - Disorder of lipoprotein metabolism, unspecified, I10 - Essential (primary) hypertension, R79.89 - Other specified abnormal findings of blood chemistry Comprehensive Met. Panel Today E13.9 - Other specified diabetes mellitus without complications, E78.9 - Disorder of lipoprotein metabolism, unspecified, I10 - Essential (primary) hypertension, R79.89 - Other specified abnormal findings of blood chemistry Medications: Refilled meclizine 12.5 mg PO TID 30 days PRN 90 tabs 0RF dizziness R42 - Dizziness and giddiness meclizine 12.5 mg PO TID 30 days PRN 90 tabs 0RF dizziness R42 - Dizziness and giddiness
[2024-08-29 11:17] VITALS: BP 116/72; PULSE 67; RESP 16; O2SAT 97; BMI 35.7
== END 2024-08-29 12:16 | disposition home or self-care (01) ==
LOC: HO.HMCC 11:15
PROVIDERS: PCP Internal Medicine; Visit Provider Internal Medicine
DX: F43.9 Reaction to severe stress, unspecified (principal); R79.89 Other specified abnormal findings of blood chemistry; H81.10 Benign paroxysmal vertigo, unspecified ear; F41.0 Panic disorder [episodic paroxysmal anxiety]; Z65.8 Other specified problems related to psychosocial circumstances; E13.9 Other specified diabetes mellitus without complications; E78.9 Disorder of lipoprotein metabolism, unspecified; I10 Essential (primary) hypertension; F41.1 Generalized anxiety disorder; I48.0 Paroxysmal atrial fibrillation; M81.8 Other osteoporosis without current pathological fracture

== ENCOUNTER → 2024-08-29 11:14 | Outpatient (BNVA) | payer MEDICARE, SELFPAY | PROVIDERS: PCP Internal Medicine; Visit Provider Internal Medicine | DX: F43.9 Reaction to severe stress, unspecified (principal); R79.89 Other specified abnormal findings of blood chemistry; H81.10 Benign paroxysmal vertigo, unspecified ear; F41.0 Panic disorder [episodic paroxysmal anxiety]; E13.9 Other specified diabetes mellitus without complications; E78.9 Disorder of lipoprotein metabolism, unspecified; I10 Essential (primary) hypertension; F41.1 Generalized anxiety disorder; I48.0 Paroxysmal atrial fibrillation; M81.8 Other osteoporosis without current pathological fracture; Z65.8 Other specified problems related to psychosocial circumstances | CPT/HCPCS: 96127; 99212 ==

== ENCOUNTER 2024-08-31 09:47 | Outpatient (REF) | payer MEDICARE, SELFPAY ==
--- NOTE | ~2024-08-31 | US_ITS ---
EXAMINATION: US ABDOMEN COMPLETE WITH LIVER ELASTOGRAPHY HISTORY: R79.89 - Other specified abnormal findings of blood chemistry TECHNIQUE: Real-time grayscale ultrasound imaging of the abdomen was performed and images were reviewed. COMPARISON: Comparison is made with the prior examination dated 06/30/2022. FINDINGS: Liver: The right lobe of the liver measures 17.6 cm in size. The left lobe of the liver measures 13.8 cm in size. The liver demonstrates coarsened echotexture and a nodular contour, consistent with cirrhosis. No focal mass or intrahepatic biliary ductal dilatation is identified. There is normal hepatopedal flow in the portal vein. Ultrasound elastography of the liver was performed with 10 separate measurements of the liver parenchyma with the patient in the supine position. Measurements were obtained approximately 2 cm below Reshma's capsule and perpendicular to the capsule. Images are of satisfactory quality. The median shear wave velocity is 1.57 m/s (previously 1.49 m/s). The interquartile range/median (IQR/median) is 0.32. Gallbladder and biliary tree: The gallbladder is surgically absent. The common bile duct is normal in caliber measuring 6 mm. Kidneys: The right kidney measures 11.7 cm in length. The left kidney measures 10.1 cm in length. The kidneys are unremarkable, without evidence of masses, hydronephrosis, or calculi. Pancreas: The pancreatic head, neck, and body are unremarkable. The pancreatic tail is obscured by bowel gas. Spleen: Spleen is enlarged, measuring 16.2 cm in length. Abdominal aorta and inferior vena cava: The visualized portions of the abdominal aorta and inferior vena cava are normal in caliber. There is no free fluid in the abdomen. US/US abdomen comp w elastography IMPRESSION: Hepatosplenomegaly and hepatic cirrhosis. The median shear wave velocity in the liver is 1.57 m/s, corresponding to a median liver stiffness of 7.4 kPa. The IQR/median value is 0.32. This is indicative of a poor quality data set, and the estimated liver stiffness may be unreliable. Findings are indicative of a low elastography value which rules out advanced chronic liver disease in asymptomatic patients. REFERENCE: Society of Radiologists in Ultrasound Liver Stiffness Thresholds (2020): LIVER STIFFNESS THRESHOLDS: *Shear wave velocity less than 1.3 m/s (Liver Stiffness equal or less than 5 kPa): High probability of being normal. *Shear wave velocity less than 1.7 m/s (Liver Stiffness less than 9 kPa): In the absence of other known clinical signs, rules out compensated advanced chronic liver disease. *Shear wave velocity between 1.7-2.1 m/s (Liver Stiffness 9-13 kPa): Suggestive of compensated advanced chronic liver disease but need further test for confirmation. *Shear wave velocity between 2.1-2.4 m/s (Liver Stiffness 13-17 kPa): Rules in compensated advanced chronic liver disease. *Shear wave velocity greater than 2.4 m/s (Liver Stiffness over 17 kPa): Suggestive of clinically significant portal hypertension. QUALITY OF DATA SET: *IQR/Median value equal or less than 0.15 implies a quality data set. *IQR/Median value over 0.15 implies a poor quality data set. SIGNIFICANT CHANGE FROM PRIOR EXAM: Significant change if liver stiffness measurement is 10% or greater from prior exam. OTHER CONSIDERATIONS: The stage of liver fibrosis may be overestimated in the setting of acute hepatitis, liver inflammation, elevated liver function tests, hepatic vascular congestion, obstructive cholestasis, non-fasting state, and infiltrative diseases such as amyloidosis and lymphoma. In some patients with NAFLD, the liver stiffness thresholds for compensated advanced chronic liver disease may be lower. In causes other than viral hepatitis and NAFLD, liver stiffness thresholds are not well established. Electronically signed by: Bogdan Colby MD 08/31/2024 11:30 AM EDT
== END 2024-08-31 09:48 | disposition home or self-care (01) ==
LOC: HO.US 09:47
PROVIDERS: PCP Internal Medicine; Visit Provider Nurse Practitioner Family
DX: R79.89 Other specified abnormal findings of blood chemistry (principal)
CPT/HCPCS: 76700; 76981

== ENCOUNTER → 2024-08-31 09:48 | Outpatient (BNV) | payer MEDICARE, SELFPAY | PROVIDERS: PCP Internal Medicine; Visit Provider Radiology Diagnostic Radiology | DX: K74.60 Unspecified cirrhosis of liver (principal); R16.2 Hepatomegaly with splenomegaly, not elsewhere classified | CPT/HCPCS: 76700 ==

== ENCOUNTER 2024-10-05 10:36 | Outpatient (REF) | payer MEDICARE, SELFPAY ==
--- NOTE | ~2024-10-05 | MM_ITS ---
EXAMINATION: MM SCREENING DIGITAL BREAST TOMOSYNTHESIS, BILATERAL CLINICAL INFORMATION: Screening. Asymptomatic. COMPARISON: Mammography: Comparison is made with available priors TECHNIQUE: Digital breast mammography with tomosynthesis is performed in both the craniocaudal and mediolateral oblique views along with computer-aided detection (CAD). FINDINGS: There are scattered areas of fibroglandular density (ACR BI-RADS breast composition Category b). Right marker clip. There are no significant masses, abnormal calcifications, or other abnormalities. MM/MM tomosynthesis screening BI IMPRESSION: No mammographic evidence of malignancy. ASSESSMENT: BI-RADS BI-RADS 2 - Benign Findings RECOMMENDATION: Routine annual mammography screening. 1 year F/U This examination should not preclude the clinical evaluation of a suspicious palpable abnormality. This patient's information was entered into a reminder system with a target due date for their next mammogram. Electronically signed by: Celsa Joseph DO 10/13/2024 04:26 PM EDT
== END 2024-10-05 10:37 | disposition home or self-care (01) ==
LOC: HO.MAMMO 10:36
PROVIDERS: PCP Internal Medicine; Visit Provider Nurse Practitioner Family
DX: Z12.31 Encounter for screening mammogram for malignant neoplasm of breast (principal); Z98.890 Other specified postprocedural states
CPT/HCPCS: 77063; 77067; 93242

== ENCOUNTER → 2024-10-05 11:45 | Outpatient (BNV) | payer MEDICARE, SELFPAY | PROVIDERS: PCP Internal Medicine; Visit Provider Internal Medicine | DX: Z12.31 Encounter for screening mammogram for malignant neoplasm of breast (principal) | CPT/HCPCS: 77063; 77067 ==

== ENCOUNTER 2024-10-27 10:15 | Outpatient (AMB) | payer MEDICARE, SELFPAY ==
--- NOTE | 2024-10-27 10:23 | MHC.OFFVIS ---
Vital Signs 10/27/24 10:35 Height 5 ft 2 in Weight 195 lb BMI 35.7 BP 142/50 H Blood Pressure Location Rt brachial Position Sitting Pulse 76 Pulse Source Pulse Oximeter Pulse Oximetry (%) 95 Oxygen Delivery Method Room Air Intake Visit Reasons: 3 mos FUV. NAFLD Intake Note: ESTABLISHED PATIENT for mgmt of NAFLD. Labs done. CC; Pt denies any GI sx or concerns at this time. 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 NAFLD: Details: LAST VISIT: Abnormal CT scan, liver Lipid disorder Elevated liver enzymes Constipation Hepatomegaly Tubular adenoma Plan Colonoscopy in 5 years, sooner if clinically necessary. One tubular adenoma found in cecum without high-grade dysplasia or carcinoma. CT scan report from May. Message sent to radiologist Dr. Huose asking to read images again and right and addendum. Today we will order complete abdominal ultrasound with elastography to evaluate the liver and also check spleen. Will check again for autoimmune disorders. Will also order liver fibrosis panel. Will call patient with results and patient will return for re-evaluation in 6 months. Patient is agreeable to current plan of care and verbalizes understanding of instructions. She was given the opportunity to ask questions and all questions answered. ? Thank you for allowing me to participate in her care Orders Orders Alpha Fetoprotein Today R79.89 Ceruloplasmin Today R79.89 Transglutaminase IgA Today R10.9 Liver Fibrosis Pnl Today K76.0 Ferritin Today R74.8 Smooth Muscle Antibody Today R79.89 Prothrombin Time INR Today R74.8 US abdomen comp w elastography Today R79.89 Liver Panel Today R74.01 Mitochondrial Antibody Today R79.89 Lipid Panel Today I25.10 Hemoglobin A1c Today Z83.3 TODAY'S VISIT: Patient is here today for follow-up both ultrasound results as well as lab results discussed with patient. Patient admits that she was not following up on diet. Currently she is trying to eat less and healthier. Patient is also not exercising. Patient is not doing any activities. Currently she retired and is not doing much. Patient has not lost any weight. Same weight in the past year or so. Patient denies any GI concerning symptoms. Denies any dyspepsia, dysphagia or odynophagia. Denies melena, hematochezia, unintentional weight loss or ribbon like stools. [facility] Medical History Splenomegaly Elevated ferritin Encounter for general adult medical examination with abnormal findings Respiratory tract congestion with cough Asthma exacerbation Asthma, moderate persistent Foot injury Pain of left calf Wound of right ankle Elevated liver enzymes Right flank pain Obesity due to excess calories Preop cardiovascular exam Chest discomfort Tubular adenoma Osteoporosis Colon cancer screening Paroxysmal A-fib Asthma Anxiety, generalized Lipid disorder Hypertension, essential Diabetes 1.5, managed as type 2 Surgical History History of colonoscopy Hx of breast biopsy History of liver biopsy History of section Hx of cholecystectomy Family History Father No problems noted. Mother Ovarian cancer Colon cancer Social History Housing: House Alcohol intake: never Patient Tobacco Use Status: Never used Tobacco e-Cigarette/Vaping Use: Never Used service: No Current occupational status: employed Cognitive needs: No Hearing needs: No Vision needs: Yes Physical Exam Vital Signs: Last Vital Signs Pulse 76 10/27/24 10:35 BP 142/50 H 10/27/24 10:35 Pulse Ox 95 10/27/24 10:35 Oxygen Delivery Method Room Air 10/27/24 10:35 BMI result Body Mass Index 35.7 Results Reviewed Results Reviewed: Laboratory Tests 08/23/24 11:15 Hemoglobin A1c % 6.2 H Ferritin 427 H Total Bilirubin 1.1 H AST 61 H ALT 42 H Alkaline Phosphatase 57 Liver Fibrosis Stage F2 Ceruloplasmin 27 Alpha Fetoprotein 5.1 Anti-Mitochondrial Ab NEGATIVE Anti-Smooth Muscle Ab <20 Tiss Transglutamin IgA <1.0 ABDOMINAL ULTRASOUND WITH LIVER ELASTOGRAPHY FINDINGS: Liver: The right lobe of the liver measures 17.6 cm in size. The left lobe of the liver measures 13.8 cm in size. The liver demonstrates coarsened echotexture and a nodular contour, consistent with cirrhosis. No focal mass or intrahepatic biliary ductal dilatation is identified. There is normal hepatopedal flow in the portal vein. Ultrasound elastography of the liver was performed with 10 separate measurements of the liver parenchyma with the patient in the supine position. Measurements were obtained approximately 2 cm below Reshma's capsule and perpendicular to the capsule. Images are of satisfactory quality. The median shear wave velocity is 1.57 m/s (previously 1.49 m/s). The interquartile range/median (IQR/median) is 0.32. Gallbladder and biliary tree: The gallbladder is surgically absent. The common bile duct is normal in caliber measuring 6 mm. Kidneys: The right kidney measures 11.7 cm in length. The left kidney measures 10.1 cm in length. The kidneys are unremarkable, without evidence of masses, hydronephrosis, or calculi. Pancreas: The pancreatic head, neck, and body are unremarkable. The pancreatic tail is obscured by bowel gas. Spleen: Spleen is enlarged, measuring 16.2 cm in length. Abdominal aorta and inferior vena cava: The visualized portions of the abdominal aorta and inferior vena cava are normal in caliber. There is no free fluid in the abdomen. US/US abdomen comp w elastography IMPRESSION: Hepatosplenomegaly and hepatic cirrhosis. The median shear wave velocity in the liver is 1.57 m/s, corresponding to a median liver stiffness of 7.4 kPa. The IQR/median value is 0.32. This is indicative of a poor quality data set, and the estimated liver stiffness may be unreliable. Findings are indicative of a low elastography value which rules out advanced chronic liver disease in asymptomatic patients. 5.27?points Advanced fibrosis (METAVIR stage F3-F4) likely (Hammer 2017) Approximate fibrosis stage: Toya 4-6 (John et al 2006) Assessment & Plan Assessment & Plan (1) Abnormal CT scan, liver: Code(s): R93.2 - Abnormal findings on diagnostic imaging of liver and biliary tract Category: Medical (2) Lipid disorder: Code(s): E78.9 - Disorder of lipoprotein metabolism, unspecified Category: Medical (3) Elevated liver enzymes: Code(s): R74.8 - Abnormal levels of other serum enzymes Category: Medical (4) Tubular adenoma: Code(s): D36.9 - Benign neoplasm, unspecified site Category: Medical (5) Constipation: Code(s): K59.00 - Constipation, unspecified Qualifiers: Constipation type: slow transit constipation Qualified Code(s): K59.01 - Slow transit constipation (6) Hepatomegaly: Code(s): R16.0 - Hepatomegaly, not elsewhere classified (7) Splenomegaly: Code(s): R16.1 - Splenomegaly, not elsewhere classified Category: Medical Plan Long discussion with patient about dietary restrictions. Losing weight very important. Keeping her blood sugar managed. List of food recommended given to patient. Patient will follow low-salt, low fat, low carb and high-protein diet. Patient was encouraged to exercise. Will check platelets and DNA hemochromatosis as her ferritin is elevated. Patient will return in 6 months and she will repeat liver panel and PT and INR. Patient was encouraged to increase fluid intake and activity to promote better bowel motility. Patient is agreeable to current plan of care and verbalizes understanding of instructions. She was given the opportunity to ask questions and all questions answered. Thank you for allowing me to participate in her care Orders: Orders Liver Panel 6 Months R74.01 - Elevation of levels of liver transaminase levels Platelet Count Today R74.01 - Elevation of levels of liver transaminase levels Prothrombin Time INR 6 Months R74.8 - Abnormal levels of other serum enzymes DNA Analysis Hemochromatosis Today R79.89 - Other specified abnormal findings of blood chemistry Coding Level of Care Code Est Pt Level 4 (96211) Complex EM visit Add On G2211 Diagnoses Abnormal CT scan, liver R93.2 Lipid disorder E78.9 Elevated liver enzymes R74.8 Tubular adenoma D36.9 Slow transit constipation K59.01 Constipation type: slow transit constipation Hepatomegaly R16.0 Splenomegaly R16.1 Time Spent (min) 40 Comment 25 minutes spent with patient and additional 15 minutes spent reviewing her records
[2024-10-27 10:35] VITALS: BP 142/50; PULSE 76; O2SAT 95; BMI 35.7
== END 2024-10-27 11:00 | disposition home or self-care (01) ==
PROVIDERS: PCP Internal Medicine; Visit Provider Nurse Practitioner Family
DX: R93.2 Abnormal findings on diagnostic imaging of liver and biliary tract (principal); E78.9 Disorder of lipoprotein metabolism, unspecified; R74.8 Abnormal levels of other serum enzymes; D36.9 Benign neoplasm, unspecified site; K59.01 Slow transit constipation; R16.0 Hepatomegaly, not elsewhere classified; R16.1 Splenomegaly, not elsewhere classified
CPT/HCPCS: 99214; G2211

== ENCOUNTER → 2024-10-27 10:15 | Outpatient (BNVA) | payer MEDICARE, SELFPAY | PROVIDERS: PCP Internal Medicine; Visit Provider Nurse Practitioner Family | DX: K59.01 Slow transit constipation (principal); R93.2 Abnormal findings on diagnostic imaging of liver and biliary tract; E78.9 Disorder of lipoprotein metabolism, unspecified; R74.8 Abnormal levels of other serum enzymes; D36.7 Benign neoplasm of other specified sites; R16.0 Hepatomegaly, not elsewhere classified; R16.1 Splenomegaly, not elsewhere classified; R74.01 Elevation of levels of liver transaminase levels; R79.89 Other specified abnormal findings of blood chemistry | CPT/HCPCS: 99212 ==

== ENCOUNTER 2024-11-22 09:53 | Outpatient (REF) | payer MEDICARE, SELFPAY ==
[2024-11-22 13:45] LABS: Platelet Count 183 X10*3/uL (160-400)
[2024-11-22 13:59] LABS: Alanine Aminotransferase 23 U/L (0-31); Albumin Level 4.1 g/dL (3.5-5.0); Alkaline Phosphatase 57 U/L (39-117); Anion Gap 13 (12-20); Aspartate Amino Transferase 39 U/L (5-31); Bilirubin Total 0.8 mg/dL (0.0-1.0); Blood Urea Nitrogen 11 mg/dL (9-16); Calcium 9.4 mg/dL (8.4-10.2); Carbon Dioxide 24 mmol/L (22-29); Chloride 105 mmol/L (96-108); Estimated Glomerular Filt Rate > 60; Glucose Random 138 mg/dL (60-115); Potassium 4.2 mmol/L (3.3-5.1); Sodium 138 mmol/L (135-145); Total Protein 7.1 g/dL (6.5-8.0)
[2024-11-22 14:22] LABS: Ferritin 273 ng/mL (10-250)
== END 2024-11-22 09:54 | disposition home or self-care (01) ==
LOC: HO.HMGCLDS 09:53
PROVIDERS: PCP Internal Medicine; Referring Provider Nurse Practitioner Family; Visit Provider Internal Medicine
DX: R79.89 Other specified abnormal findings of blood chemistry (principal); E78.9 Disorder of lipoprotein metabolism, unspecified; I10 Essential (primary) hypertension; E13.9 Other specified diabetes mellitus without complications; R74.01 Elevation of levels of liver transaminase levels
CPT/HCPCS: 36415; 80053; 81256; 82728; 85049

== ENCOUNTER 2024-12-12 13:27 | Outpatient (AMB) | payer MEDICARE, SELFPAY ==
[2024-12-12 13:32] VITALS: BP 116/66; PULSE 87; TEMP 36.9; O2SAT 95; BMI 34.6
--- NOTE | 2024-12-12 13:32 | A.OFFPC_ITS ---
Vital Signs 12/12/24 13:32 Height 5 ft 2 in Weight 189 lb BMI 34.6 BP 116/66 Blood Pressure Location Rt brachial Position Sitting Pulse 87 Pulse Source Pulse Oximeter Temp 98.4 F Temp Source Oral Pulse Oximetry (%) 95 Oxygen Delivery Method Room Air Intake Visit Reasons: Cataract Rt Eye Section Laborer Required: No Is last menstrual period known: No Post menopausal: Yes Patient : No Allergies vancomycin (VANCOMYCIN) Allergy (Intermediate, Verified 12/12/24 13:37) HIVES, ITCHING DEANNA Inhibitors Allergy (Mild, Verified 12/12/24 13:37) Cough Medication List - Last Reconciled 12/12/24 by Johny Adorno MD albuterol sulfate 1.25 mg (3 mL) inhalation QID PRN albuterol sulfate 90 mcg/actuation (Ventolin HFA) 1 inh inhalation QID PRN 30 days alendronate 70 mg PO QWEEK blood sugar diagnostic (FreeStyle Lite Strips) patient to check blood sugar once daily or as needed blood-glucose meter (FreeStyle Lite Meter kit) Patient to check blood sugar once daily or as needed cholecalciferol (vitamin D3) (Vitamin D3) 25 mcg PO DAILY escitalopram oxalate 20 mg PO DAILY 90 days fluticasone propion-salmeterol 250-50 mcg/dose (Advair Diskus) 1 inh inhalation BID glipizide 10 mg PO BID 90 days hydrochlorothiazide 25 mg PO DAILY 90 days lancets (FreeStyle Lancets) Patient to check blood sugar once daily or as needed losartan 50 mg PO DAILY montelukast 10 mg PO BEDTIME pravastatin 20 mg PO DAILY 90 days rivaroxaban (Xarelto) 20 mg PO DAILY [Updraft machine As directed] Tobacco use date assessed: 12/12/24 Dental Screening Dental Screen Date: 08/29/24 Did you have a dental visit in the last 12 months?: Yes Did you have a dental problem in the last 6 months where you did not have access to dental care?: No Was dental information given to patient?: Patient has dentist HPI Cataract Rt Eye HPI Details Chief Complaint Clearance for upcoming cataract surgery. - The patient is a 74-year-old female pr esenting with hypoglycemia and cataract surgery management. - Hypoglycemia: The patient reports expe riencing low blood sugar levels, particularly in the middle of the afternoon, with readings as low as 49 mg/dL. Her hemoglobin A1c is 5.9 today - The patient is currently taking glipiz mark 10 mg, which is being adjusted to 5 mg twice daily due to these low readings. - The patient has a history of liver enz yme elevation, which has improved with weight loss and exercise. - Cataract: The patient is scheduled for cataract surgery on the right eye on December 22 and the left eye on January 04, performed by Dr. Gutierrez. At [facility] and [facility] - Osteoporosis: The patient has not had a bone density test in a long time and is due for one. - Carpal tunnel syndrome: The patient ex periences numbness in the thumbs while driving, attributed to carpal tunnel syndrome. Medications - Glipizide 10 mg for diabetes managemen t, adjusted to 5 mg twice daily due to hypoglycemia. - Pravastatin for cholesterol management . - Montelukast for asthma management. - Losartan hydrochlorothiazide for hyper tension management. - Xarelto for anticoagulation. Problem List - Cataract bilateral - Hypoglycemia - Osteoporosis - Preventative care: Bone density screen ing - Carpal tunnel syndrome - diabetes - hypertension - lipid disorder - obesity Plan The patient's glipizide dosage is being reduced to 5 mg twice daily to manage hypoglycemia, with close monitoring of blood sugar levels recommended. Cataract surgery is scheduled for both eyes, with no need to discontinue Xarelto as the procedure is non-invasive. A bone density test is ordered to assess osteoporosis status, with follow-up planned based on results. The patient is advised to adjust hand positioning while driving to alleviate carpal tunnel syndrome symptoms. Medical Decision Making The decision to reduce glipizide dosage is based on the patient's hypoglycemia episodes, aiming to prevent further low blood sugar incidents while maintaining glycemic control. Cataract surgery is planned with consideration of the patient's anticoagulation therapy, ensuring safety during the procedure. A bone density test is deemed necessary due to the patient's history of osteoporosis and lack of recent screening. Carpal tunnel syndrome management includes ergonomic adjustments to reduce symptoms during driving. Continue medications Patient is stable for cataract surgery [facility] Medical History Splenomegaly Elevated ferritin Encounter for general adult medical examination with abnormal findings Respiratory tract congestion with cough Asthma exacerbation Asthma, moderate persistent Foot injury Pain of left calf Wound of right ankle Elevated liver enzymes Right flank pain Obesity due to excess calories Preop cardiovascular exam Chest discomfort Tubular adenoma Osteoporosis Colon cancer screening Paroxysmal A-fib Asthma Anxiety, generalized Lipid disorder Hypertension, essential Diabetes 1.5, managed as type 2 Surgical History History of colonoscopy Hx of breast biopsy History of liver biopsy History of section Hx of cholecystectomy Family History Father No problems noted. Mother Ovarian cancer Colon cancer Social History Housing: House Alcohol intake: never Patient Tobacco Use Status: Never used Tobacco e-Cigarette/Vaping Use: Never Used Patient : No service: No Current occupational status: employed Cognitive needs: No Hearing needs: No Vision needs: Yes Questionnaire PHQ-9 Over the last 2 weeks, how often have you been bothered by any of the following problems? 1. Little interest or pleasure in doing things: several days 2. Feeling down, depressed, or hopeless: several days 3. Trouble falling or staying asleep, or sleeping too much: not at all 4. Feeling tired or having little energy: several days 5. Poor appetite or overeating: not at all 6. Feeling bad about yourself - or that you are a failure or have let yourself or your family down: not at all 7. Trouble concentrating on things, such as reading the newspaper or watching television: not at all 8. Moving or speaking so slowly that other people could have noticed. Or the opposite - being so fidgety or restless that you have been moving around a lot more than usual: not at all 9. Thoughts that you would be better off or of hurting yourself in some way: not at all Total score: 3 Depression Screening Interpretation: Negative Depression Screening Done: Yes 16322 - PHQ-9 Billing: Yes Source: Developed by Drs. Bogdan So, Michelle Cuevas, Lamberto Pruett and colleagues, with an educational james from [employer]. Thrive Questionnaire Date Thrive assessed: 12/12/24 I am a: Patient What is your living situation today?: I have a steady place to live Within the past 12 months, did the food you bought not last and you didn't have the money to get more?: Never true Within the past 12 months, did you worry whether your food would run out before you got money to buy more?: Never true Do you have trouble paying for medicines?: No Do you have trouble getting transportation to medical appointments?: No Do you have trouble paying your heating and electricity bill?: No Do you have trouble taking care of your child, family member or friend?: No Do you have trouble with day-to-day activities such as bathing, preparing meals, shopping, managing finances, etc.?: No Are you currently unemployed and looking for a job?: No Are you interested in more education?: No Please select the resources that you would like help with: None Currently or been in a relationship where the following occur: I choose not to answer THRIVE Score: 0 SEAN-7 AMB Questionnaire SEAN-7 Date SEAN - 7 assessed: 08/29/24 Feeling nervous, anxious, or on edge: 1 = Several days Not being able to stop or control worryin = Not at all Worrying too much about different things: 0 = Not at all Trouble relaxin = More than half the days Being so restless that it is hard to sit still: 0 = Not at all Becoming easily annoyed or irritable: 1 = Several days Feeling afraid as if something awful might happen: 0 = Not at all Total SEAN-7 score (0-4 normal; 5-9 mild; 10-14 moderate; 15-21 severe): 4 Source: Developed by Drs. Bogdan So, Michelle Cuevas, Lamberto Pruett and colleagues, with an educational james from [employer]. SEAN-7 Assessment Billing SEAN-7 Assessment Tool: SEAN-7 Assessment 89187 Review of Systems Const Denies chills and Denies fever(s) ENT Denies epistaxis and Denies nasal discharge Card Denies chest pain Resp Denies chest congestion, Denies cough and Denies hemoptysis GI Denies diarrhea and Denies nausea Skin/Breast Denies rash Neuro Reports no additional complaints Psych Reports no additional complaints Endo Reports no additional complaints Physical exam (Primary Care) Vital Signs: Last Vital Signs Temp 98.4 F 12/12/24 13:32 Pulse 87 12/12/24 13:32 BP 116/66 12/12/24 13:32 Pulse Ox 95 12/12/24 13:32 Oxygen Delivery Method Room Air 12/12/24 13:32 BMI result Body Mass Index 34.6 Tobacco/Smoking Status: Tobacco use Status Tobacco use date assessed 12/12/24 12/12/24 13:40 Patient Tobacco Use Status Never used Tobacco 12/12/24 13:40 e-Cigarette/Vaping Use Never Used 12/12/24 13:40 PHQ-9: PHQ-9 Score PHQ-9: Total score 3 12/12/24 13:40 Depression Screening Interpretation: Negative Thrive Assessment: Date of Thrive Assessment Date Thrive assessed 12/12/24 12/12/24 13:40 Currently or been in a relationship where the following occur: I choose not to answer Const General: cooperative, comfortable and no acute distress Orientation/consciousness: patient oriented x3 HENMT Head: Yes normocephalic Eyes General: appearance normal, both eyes and all related structures Neck Neck: Yes supple Resp Effort & Inspection: normal respiratory effort, no cough and no stridor Cardio Rhythm: regular rhythm Heart sounds: S1 normal heart sound present and S2 normal heart sound present Skin General skin exam: turgor normal Neuro General: patient oriented x3, tone normal and moves all extremities Extrem Right lower extremity: no edema Left lower extremity: no edema Coding Level of Care Code Est Pt Level 4 (70340) Diagnoses Pre-op evaluation Z01.818 Age-related cataract of both eyes, unspecified age-related cataract type H25.9 Cataract type: age-related Age-related cataract type: unspecified Laterality: bilateral Hypoglycemia E16.2 Diabetes 1.5, managed as type 2 E13.9 Paroxysmal A-fib I48.0 Hypertension, essential I10 Other osteoporosis, unspecified pathological fracture presence M81.8 Osteoporosis type: other Presence of current pathological fracture: unspecified Lipid disorder E78.9 Additional Codes SEAN-7 Assessment Billing - SEAN-7 Assessment Tool: SEAN-7 Assessment 41020 ([id number]) PHQ-9 - 72965 - PHQ-9 Billing: Yes ([id number]) Assessment & Plan Assessment & Plan (1) Pre-op evaluation: Code(s): Z01.818 - Encounter for other preprocedural examination Category: Medical (2) Cataract: Code(s): H26.9 - Unspecified cataract Category: Medical Qualifiers: Cataract type: age-related Age-related cataract type: unspecified Laterality: bilateral Qualified Code(s): H25.9 - Unspecified age-related cataract (3) Hypoglycemia: Code(s): E16.2 - Hypoglycemia, unspecified Category: Medical (4) Diabetes 1.5, managed as type 2: Code(s): E13.9 - Other specified diabetes mellitus without complications Category: Medical (5) Paroxysmal A-fib: Comment: follows w/HCS Code(s): I48.0 - Paroxysmal atrial fibrillation Category: Medical (6) Hypertension, essential: Code(s): I10 - Essential (primary) hypertension Category: Medical (7) Osteoporosis: Code(s): M81.0 - Age-related osteoporosis without current pathological fracture Category: Medical Qualifiers: Osteoporosis type: other Presence of current pathological fracture: unspecified Qualified Code(s): M81.8 - Other osteoporosis without current pathological fracture (8) Lipid disorder: Code(s): E78.9 - Disorder of lipoprotein metabolism, unspecified Category: Medical Plan Chief Complaint Clearance for upcoming cataract surgery. - The patient is a 74-year-old female presenting with hypoglycemia and cataract surgery management. - Hypoglycemia: The patient reports experiencing low blood sugar levels, particularly in the middle of the afternoon, with readings as low as 49 mg/dL. Her hemoglobin A1c is 5.9 today - The patient is currently taking glipizide 10 mg, which is being adjusted to 5 mg twice daily due to these low readings. - The patient has a history of liver enzyme elevation, which has improved with weight loss and exercise. - Cataract: The patient is scheduled for cataract surgery on the right eye on December 22 and the left eye on January 04, performed by Dr. Gutierrez. At [facility] [place] - Osteoporosis: The patient has not had a bone density test in a long time and is due for one. - Carpal tunnel syndrome: The patient experiences numbness in the thumbs while driving, attributed to carpal tunnel syndrome. Medications - Glipizide 10 mg for diabetes management, adjusted to 5 mg twice daily due to hypoglycemia. - Pravastatin for cholesterol management. - Montelukast for asthma management. - Losartan hydrochlorothiazide for hypertension management. - Xarelto for anticoagulation. Problem List - Cataract bilateral - Hypoglycemia - Osteoporosis - Preventative care: Bone density screening - Carpal tunnel syndrome - diabetes - hypertension - lipid disorder - obesity Plan The patient's glipizide dosage is being reduced to 5 mg twice daily to manage hypoglycemia, with close monitoring of blood sugar levels recommended. Cataract surgery is scheduled for both eyes, with no need to discontinue Xarelto as the procedure is non-invasive. A bone density test is ordered to assess osteoporosis status, with follow-up planned based on results. The patient is advised to adjust hand positioning while driving to alleviate carpal tunnel syndrome symptoms. Medical Decision Making The decision to reduce glipizide dosage is based on the patient's hypoglycemia episodes, aiming to prevent further low blood sugar incidents while maintaining glycemic control. Cataract surgery is planned with consideration of the patient's anticoagulation therapy, ensuring safety during the procedure. A bone density test is deemed necessary due to the patient's history of osteoporosis and lack of recent screening. Carpal tunnel syndrome management includes ergonomic adjustments to reduce symptoms during driving. Continue medications Patient is stable for cataract surgery Orders: Orders AMB Hemoglobin A1c Today E13.9 - Other specified diabetes mellitus without complications XR DEXA axial skeleton Today M81.8 - Other osteoporosis without current pathological fracture Medications: Changed From glipizide One in the morning and half at night 10 mg PO BID 90 days 135 tabs 0RF To glipizide 5 mg PO BID 180 tabs 0RF 90 days Discontinued fluticasone propion-salmeterol 250-50 mcg/dose (Advair Diskus) Discontinued Reason: Doctor's Order 1 inh inhalation BID 60 ea 2RF
== END 2024-12-12 14:16 | disposition home or self-care (01) ==
LOC: HO.HMCC 13:28
PROVIDERS: PCP Internal Medicine; Visit Provider Internal Medicine
DX: E13.9 Other specified diabetes mellitus without complications (principal); I48.0 Paroxysmal atrial fibrillation; Z01.818 Encounter for other preprocedural examination; H25.9 Unspecified age-related cataract; E16.2 Hypoglycemia, unspecified; I10 Essential (primary) hypertension; M81.8 Other osteoporosis without current pathological fracture; E78.9 Disorder of lipoprotein metabolism, unspecified

== ENCOUNTER → 2024-12-12 13:27 | Outpatient (BNVA) | payer MEDICARE, SELFPAY | PROVIDERS: PCP Internal Medicine; Visit Provider Internal Medicine | DX: Z01.818 Encounter for other preprocedural examination (principal); H25.9 Unspecified age-related cataract; E13.649 Other specified diabetes mellitus with hypoglycemia without coma; I48.0 Paroxysmal atrial fibrillation; I10 Essential (primary) hypertension; M81.8 Other osteoporosis without current pathological fracture; E78.9 Disorder of lipoprotein metabolism, unspecified; Z79.899 Other long term (current) drug therapy | CPT/HCPCS: 83036; 96127; 99212 ==

== ENCOUNTER → 2025-02-14 09:58 | Outpatient (REF) | payer MEDICARE, SELFPAY ==
--- NOTE | 2025-02-14 10:01 | HM_ITS ---
* Total monitoring time 3 days. * Underlying rhythm is sinus with an average rate of 73/Min. * Atrial fibrillation noted 35% of the time. Longest episode 16 hours and 40 minutes. Fastest 128/Min. * Rare ventricular ectopy with a burden of 0.6%. Rare couplets. * Mobitz type one second-degree AV block noted during sleep hours. * Rapid heartbeat in patient diary correlates with sinus rhythm/PVC/atrial fibrillation. MTDD
--- NOTE | 2025-02-14 10:01 | CA_ITS ---
Transthoracic Echocardiogram Patient (Last, First, Middle): Kellie Villanueva T Gender: F Date of : 1950 Age: 74 Procedure Date: 02/14/2025 Procedure Type: Transthoracic Echocardiogram Location: OP Height: 157.48 cm Weight: 85.73 kg BSA: 1.87 m2 Heart Rate: bpm BP: 116 / 66 mmHg Pump Attendant: ELADIA Referring MD: Geoff Serra MD [employer] Instructor: Geoff Serra MD Symptoms: I48.0 - Paroxysmal atrial fibrillation Study Quality: Adequate ECG Rhythm: Sinus Conclusions: - 1. Normal LV ejection fraction of 60-65% with impaired relaxation filling pattern 2. Normal cardiac valvular Dopplers 3. No gross pericardial effusion Findings Left Ventricle Normal left ventricular size, thickness, and systolic function. The visually estimated ejection fraction is between 60-65%. Spectral Doppler is indicative of an impaired relaxation filling pattern. E/E prime ratio is <8, consistent with normal filling pressures. Right Ventricle Normal right ventricular cavity size and systolic function. Atria The left atrium is likely dilated. There is no evidence of interatrial shunt. The right atrium is normal in size. Aortic Valve The aortic valve structure and function is likely normal. There is no aortic valve stenosis. There is no aortic valve regurgitation. Mitral Valve Normal mitral valve structure and function. There is trace mitral valve regurgitation. There is no mitral valve stenosis. Pulmonic Valve The pulmonic valve was not well visualized. Tricuspid Valve Likely normal tricuspid valve structure and function. Tricuspid regurgitation envelope is inadequate for calculation of right ventricular systolic pressure. Normal right atrial pressure. Great Vessels All visible segments of the aorta are normal in size. The pulmonary artery was not well visualized. There is no dilatation of the ascending aorta measuring 3.30 cm. Venous The inferior vena cava is normal in size and collapses greater than 50% with inspiration. Pericardium/Pleural There is no evidence of pericardial effusion. Prior Study Comparison No significant change compared to prior study dated: 11/13/2021. Measurements 2D Linear Measurements IVSd: 1.07 0.6-0.9/0.6-1.0 cm LVIDd: 4.33 3.9-5.3/4.2-5.9 cm LVIDd Index: 2.32 2.4-3.2/2.2-3.1 cm/m2 LVIDs: 2.70 2.0-3.6 cm LVPWd: 0.94 0.7-1.1 cm LA Diam: 3.90 2.7-3.8/3.0-4.0 cm LAIDs Index: 2.09 1.5-2.3 cm/m2 LV Mass: 180.60 67-162/88-224 g LV Mass Index: 96.58 43-95/49-115 g/m2 LVOT Diam: 2.10 3.0+(-)1.3 cm 2D Systolic Function EF 4C: 62.00 >55% EF 2C: 66.50 >55% EF BiP: 63.80 >55% Mitral Valve MV Pk E: 0.79 MV PK A: 0.85 MV Decel Time: 285.00 E/A: 0.90 E'Lateral: 6.31 E'Medial: 6.53 E/E' Med: 12.10 E/E' Lat: 12.50 PHT: 83.00 MVA PHT: 2.65 Decel Hardee: 2.77 Aortic Valve AoV Pk Dov: 1.32 AoV Mn Dov: 0.91 AoV VTI: 0.31 AoV Pk Grad: 7.00 Aov Mn Grad: 4.00 JAGJIT Cont.VTI: 2.41 LVOT LVOT Pk Dov: 0.88 LVOT Mn Dov: 0.61 LVOT VTI: 0.22 LVOT Pk Grad: 3.00 LVOT Mn Grad: 2.00 LVOT Diam: 2.10 LVOT Area: 3.46 Diastolic Function MV Pk E: 0.79 MV Pk A: 0.85 E/A: 0.90 E'Medial: 6.53 E/E' Med: 12.10 E' Laterial: 6.31 E/E' Lat: 12.50 Right Ventricle TAPSE (mm): 19.90 TVS' Dov: 9.57 Tricuspid Valve RA Press: 3.00 Great Vessels Aorta Sinus of Valsalva: 3.46 2.0-3.5 cm Ao Asc: 3.30 2.1-3.4 cm Updated in Other Vendor System with Status of Final Geoff Serra MD electronically signed on 02/14/2025 2:27:32 PM with status of Final
== END ==
LOC: HO.CARD 09:58
PROVIDERS: PCP Internal Medicine; Visit Provider Internal Medicine Cardiovascular Disease
DX: I48.0 Paroxysmal atrial fibrillation (principal)
CPT/HCPCS: 93242; 93306

== ENCOUNTER → 2025-02-14 10:01 | Outpatient (BNV) | payer MEDICARE, SELFPAY | PROVIDERS: PCP Internal Medicine; Visit Provider Internal Medicine Cardiovascular Disease | DX: I48.0 Paroxysmal atrial fibrillation (principal) | CPT/HCPCS: 93306 ==

== ENCOUNTER 2025-03-08 10:48 | Outpatient (AMB) | payer MEDICARE, SELFPAY ==
--- NOTE | 2025-03-08 10:53 | MHC.OFFVIS ---
Vital Signs 03/08/25 10:54 Height 5 ft 2 in Weight 189 lb 9.561 oz BMI 34.7 BP 118/56 L Blood Pressure Location Lt brachial Position Sitting Pulse 72 Pulse Source Monitor Intake Visit Reasons: 9m follow up Intake Note: 9m F/U Accompanied by: Self / Same As Patient Allergies vancomycin (VANCOMYCIN) Allergy (Intermediate, Verified 03/08/25 10:59) HIVES, ITCHING DEANNA Inhibitors Allergy (Mild, Verified 03/08/25 10:59) Cough Medication List - Last Reconciled 03/08/25 by Geoff Serra MD albuterol sulfate 1.25 mg (3 mL) inhalation QID PRN albuterol sulfate 90 mcg/actuation (Ventolin HFA) 1 inh inhalation QID PRN 30 days blood sugar diagnostic (FreeStyle Lite Strips) patient to check blood sugar once daily or as needed blood-glucose meter (FreeStyle Lite Meter kit) Patient to check blood sugar once daily or as needed cholecalciferol (vitamin D3) (Vitamin D3) 25 mcg PO DAILY escitalopram oxalate 20 mg PO DAILY 90 days glipizide 5 mg PO BID 90 days hydrochlorothiazide 25 mg PO DAILY 90 days lancets (FreeStyle Lancets) Patient to check blood sugar once daily or as needed losartan 50 mg PO DAILY montelukast 10 mg PO BEDTIME pravastatin 20 mg PO DAILY 90 days rivaroxaban (Xarelto) 20 mg PO DAILY [Updraft machine As directed] HPI Comments Details: Kellie comes for follow-up. Noted to be in atrial fibrillation today. Denies any new symptoms recently. Denies any worsening shortness of breath, fatigue, orthopnea, PND. She says she is chronically short of breath but this is sudden not something new. She is able to managed day-to-day activities without any issues. Recent Holter monitor shown increasing burden of atrial fibrillation, 35% of the time. She has been taking all her medications regularly. Recent echocardiogram showed normal LV ejection fraction with upper limits of normal left atrial chamber size without any major valvular abnormalities. No bleeding issues or neurologic events. No prolonged palpitation irregular heartbeat. No lightheadedness, syncope. COUNTS INCLUDE 234 BEDS AT THE [facility] Medical History Splenomegaly Elevated ferritin Encounter for general adult medical examination with abnormal findings Respiratory tract congestion with cough Asthma exacerbation Asthma, moderate persistent Foot injury Pain of left calf Wound of right ankle Elevated liver enzymes Right flank pain Obesity due to excess calories Preop cardiovascular exam Chest discomfort Tubular adenoma Osteoporosis Colon cancer screening Paroxysmal A-fib Asthma Anxiety, generalized Lipid disorder Hypertension, essential Diabetes 1.5, managed as type 2 Surgical History History of colonoscopy Hx of breast biopsy History of liver biopsy History of section Hx of cholecystectomy Family History Father No problems noted. Mother Ovarian cancer Colon cancer Social History Housing: House Alcohol intake: never Patient Tobacco Use Status: Never used Tobacco e-Cigarette/Vaping Use: Never Used service: No Current occupational status: employed Cognitive needs: No Hearing needs: No Vision needs: Yes Review of Systems Const Denies daytime sleepiness, Denies difficulty sleeping, Denies snoring, Denies stops breathing during sleep and Denies weakness Card Denies chest pain, Denies rapid heart rate, Denies irregular heart rhythm, Denies claudication, Denies leg edema, Denies lightheadedness, Denies palpitations, Denies dyspnea, Denies dyspnea on exertion, Denies orthopnea, Denies paroxysmal nocturnal dyspnea and Denies slow heart rate Resp Denies cough, Denies dyspnea, Denies dyspnea on exertion and Denies snoring GI Reports no additional complaints, Denies hematochezia, Denies change in stool character and Denies dyspepsia Musc Denies abnormal gait, Denies muscle weakness and Denies numbness Neuro Denies abnormal gait, Denies numbness and Denies weakness Endo Denies palpitations Physical Exam Vital Signs: Last Vital Signs Pulse 72 03/08/25 10:54 BP 118/56 L 03/08/25 10:54 BMI result Body Mass Index 34.7 Const General: cooperative, healthy appearing, comfortable and no acute distress Orientation/consciousness: patient oriented x3 Neck Neck: Yes normal visual inspection Resp Effort & Inspection: normal respiratory effort Auscultation: clear to auscultation bilaterally, no crackles, no rales, no rhonchi, no wheezes and diminished lung sounds Cardio Jugular venous distension: no JVD Rhythm: abnormal rhythm irregularly irregular Heart sounds: S1 normal heart sound present, S2 normal heart sound present, no gallops, no murmurs and no rubs Neuro General: patient oriented x3 Extrem General: Yes normal to inspection Psych Appearance: grossly normal Mental Status: mental status grossly normal Speech and movement: Normal speech and movement present Office Procedures EKG Details: EKGs shows atrial fibrillation with low-voltage QRS with nonspecific STT wave changes [id number], Complete Assessment & Plan Assessment & Plan (1) Persistent atrial fibrillation: Code(s): I48.19 - Other persistent atrial fibrillation Category: Medical Plan: Persistent rate control atrial fibrillation this elderly woman without any obvious new symptoms. She says she feels fine as he has no change in her overall clinical status. She recently had a Holter monitor which showed paroxysmal AFib with increasing burden. Given lack of symptoms at this point time we discussed about possible management to pursue rhythm control approach. She wants to wait and watch for the next 3 months. Continue rate control approach and current therapy. Continue full oral anticoagulation, currently on Xarelto 20 mg daily. Semi annual renal function test should be pursued. Discussed with her that longer be weight in atrial fibrillation tough for it will be to pursue rhythm control approach. She understands and agrees. (2) Hypertension, essential: Code(s): I10 - Essential (primary) hypertension Category: Medical Plan: Hypertension which is currently well optimized advised to monitor blood pressure at home maintain a log. Goal blood pressure less than 130/84. Low-salt diet was discussed. Continue current therapy. Continue aggressive diabetes management goal hemoglobin A1c less than 7% and goal LDL less than 70 mg/dL. Will follow up in the clinic in 3 months time, sooner PRN. Thank you for allowing me to partake in her care Coding Level of Care Code Est Pt Level 4 (73040) Complex EM visit Add On G2211 Diagnoses Persistent atrial fibrillation I48.19 Hypertension, essential I10 CPT Codes EKG - CPT: 47326-[id number], Complete ([id number])
[2025-03-08 10:54] VITALS: BP 118/56; PULSE 72; BMI 34.7
== END 2025-03-08 11:51 | disposition home or self-care (01) ==
LOC: HO.HCS 10:49
PROVIDERS: PCP Internal Medicine; Visit Provider Internal Medicine Cardiovascular Disease
DX: I48.19 Other persistent atrial fibrillation (principal); I10 Essential (primary) hypertension
CPT/HCPCS: 93010; 99214; G2211

== ENCOUNTER → 2025-03-08 10:48 | Outpatient (BNVA) | payer MEDICARE, SELFPAY | PROVIDERS: PCP Internal Medicine; Visit Provider Internal Medicine Cardiovascular Disease | DX: I10 Essential (primary) hypertension (principal); I48.19 Other persistent atrial fibrillation | CPT/HCPCS: 93005; 99212 ==

== ENCOUNTER 2025-03-21 10:18 | Outpatient (AMB) | payer MEDICARE, SELFPAY ==
[2025-03-21 10:23] VITALS: BP 116/70; PULSE 74; O2SAT 97; BMI 34.2
--- NOTE | 2025-03-21 10:23 | A.OFFPC_ITS ---
Vital Signs 03/21/25 10:23 Height 5 ft 2 in Weight 187 lb BMI 34.2 BP 116/70 Blood Pressure Location Lt brachial Position Sitting Pulse 74 Pulse Source Pulse Oximeter Pulse Oximetry (%) 97 Intake Visit Reasons: PE- see comments Allergies vancomycin (VANCOMYCIN) Allergy (Intermediate, Verified 03/21/25 10:23) HIVES, ITCHING DEANNA Inhibitors Allergy (Mild, Verified 03/21/25 10:23) Cough Medication List - Last Reconciled 03/21/25 by Johny Adorno MD albuterol sulfate 1.25 mg (3 mL) inhalation QID PRN albuterol sulfate 90 mcg/actuation (Ventolin HFA) 1 inh inhalation QID PRN 30 days blood sugar diagnostic (FreeStyle Lite Strips) patient to check blood sugar once daily or as needed blood-glucose meter (FreeStyle Lite Meter kit) Patient to check blood sugar once daily or as needed cholecalciferol (vitamin D3) (Vitamin D3) 25 mcg PO DAILY escitalopram oxalate 20 mg PO DAILY 90 days glipizide 5 mg PO BID 90 days hydrochlorothiazide 25 mg PO DAILY 90 days lancets (FreeStyle Lancets) Patient to check blood sugar once daily or as needed losartan 50 mg PO DAILY montelukast 10 mg PO BEDTIME pravastatin 20 mg PO DAILY 90 days rivaroxaban (Xarelto) 20 mg PO DAILY [Updraft machine As directed] Tobacco use date assessed: 12/12/24 Fall risk assessment: No Falls in past year Last assessed Fall Risk: 03/21/25 Dental Screening Dental Screen Date: 08/29/24 HPI PE- see comments HPI Details History of Present Illness The patient is a 74-year-old female presenting with a physical examination and review of ongoing health issues. Iron Overload: - Iron level recorded at 273 in November. - No supplements reported besides Vitami n D. Atrial Fibrillation: - Previously assessed by cardiology. - Discussed the consideration of defibri llation. Weight Management Issues: - Reports difficulty with weight control and emotional eating, especially before doctor visits. - Participates in supportive group meeti ngs. Anxiety: - Takes escitalopram 20mg for management . - Experiences stress related to medical appointments. Diabetes Mellitus Type 2: - Currently taking glipizide 5 mg BID. - Recent HbA1c of 5.8, indicating tight glucose control. Hypertension: - Blood pressure reading at 116/70. - Currently managed with hydrochlorothia zide and losartan. Asthma stable with inhalers Patient does have a fatty liver as well but liver enzymes are stable.? Will continue to monitor Continue Fosamax for osteoporosis management Surgical History: - History of cataract surgery Health Maintenance - Last mammogram in September of the current year. - Last colonoscopy in 2020, with a follo w-up recommended in three years. - Bone density test delayed to this willie h due to a broken machine. - Reports having received flu, RSV vacci bria, and shingles vaccine last year. Medications - Hydrochlorothiazide for hypertension - Losartan for hypertension - Escitalopram 20 mg for anxiety - Glipizide 5 mg BID for Type 2 Diabetes Mellitus - Pravastatin for hyperlipidemia - Xarelto for atrial fibrillation - Vitamin D supplement Patient Instructions - Return for a fasting blood test tomorr ow. - Reduce glipizide dosage to one tablet in the morning. - Ensure regular medical check-ups and s creening tests as planned. - notify any significant health changes or concerns promptly. - continue medications as prescribed Follow-up 4 months Review of Systems - General: No fever no chills - Neurological: No headaches no dizzin ess - Ear nose throat: No sore throat no hearing difficulty no ear pain - Cardiovascular: No syncope, no chest pain, no palpitations - Gastrointestinal: No nausea vomiting or diarrhea - Endocrine: No polyuria polydipsia no heat intolerance - Genitourinary: No dysuria - Skin: No new complaints Physical Exam General: Cooperative, healthy appearing, comfortable, no acute distress Orientation: Patient oriented x3 Head: Normal to inspection Ears: Within normal limit visually Nose: Normal external nose present Face and sinus: Normal facial exam Eyes: Appearance normal, extraocular movement intact pupils reactive Neck: Normal visual inspection and supple Respiratory: Normal respiratory effort and able to speak in complete sentences. Clear to auscultation, no stridor Cardiovascular: S1 and S2, patient has atrial fibrillation Breast exam benign GI: Normal to inspection. Soft to palpation and nontender Skin: Turgor normal, no acute findings Neuro: Patient oriented x3, motor sensory intact, balance intact, tandem pass Extremities: Varicosities lower extremities with chronic skin color changes . [facility] Medical History (Updated 03/21/25 @ 11:15 by Johny Adorno MD) Encounter for general adult medical examination with abnormal findings Splenomegaly Elevated ferritin Respiratory tract congestion with cough Asthma exacerbation Asthma, moderate persistent Foot injury Pain of left calf Wound of right ankle Elevated liver enzymes Right flank pain Obesity due to excess calories Preop cardiovascular exam Chest discomfort Tubular adenoma Osteoporosis Colon cancer screening Paroxysmal A-fib Asthma Anxiety, generalized Lipid disorder Hypertension, essential Diabetes 1.5, managed as type 2 Surgical History History of colonoscopy Hx of breast biopsy History of liver biopsy History of section Hx of cholecystectomy Family History Father No problems noted. Mother Ovarian cancer Colon cancer Social History Housing: House Alcohol intake: never Patient Tobacco Use Status: Never used Tobacco e-Cigarette/Vaping Use: Never Used service: No Current occupational status: employed Cognitive needs: No Hearing needs: No Vision needs: Yes Questionnaire Thrive Questionnaire Date Thrive assessed: 08/29/24 I am a: Patient What is your living situation today?: I have a steady place to live Within the past 12 months, did the food you bought not last and you didn't have the money to get more?: Never true Within the past 12 months, did you worry whether your food would run out before you got money to buy more?: Never true Do you have trouble paying for medicines?: No Do you have trouble getting transportation to medical appointments?: No Do you have trouble paying your heating and electricity bill?: No Do you have trouble taking care of your child, family member or friend?: No Do you have trouble with day-to-day activities such as bathing, preparing meals, shopping, managing finances, etc.?: No Are you currently unemployed and looking for a job?: No Are you interested in more education?: No Please select the resources that you would like help with: None Currently or been in a relationship where the following occur: I choose not to answer THRIVE Score: 0 SEAN-7 AMB Questionnaire SEAN-7 Date SEAN - 7 assessed: 08/29/24 Source: Developed by Drs. Bogdan So, Michelle Cuevas, Lamberto Pruett and colleagues, with an educational james from [employer]. Physical exam (Primary Care) Vital Signs: Last Vital Signs Pulse 74 03/21/25 10:23 BP 116/70 03/21/25 10:23 Pulse Ox 97 03/21/25 10:23 BMI result Body Mass Index 34.2 Tobacco/Smoking Status: Tobacco use Status Tobacco use date assessed 12/12/24 03/21/25 10:24 Patient Tobacco Use Status Never used Tobacco 03/21/25 10:24 e-Cigarette/Vaping Use Never Used 03/21/25 10:24 Thrive Assessment: Date of Thrive Assessment Date Thrive assessed 08/29/24 03/21/25 10:24 Currently or been in a relationship where the following occur: I choose not to answer Results AMB Hemoglobin A1c AMB Hemoglobin A1c 6.1 % Last Edit by Ben Bonner CMA on 03/21/25 10: 51 Results Reviewed Results Reviewed: Laboratory Last Values Hgb A1c (Clinic) 6.1 % (4.0-6.0) H 03/21/25 10:31 Coding Level of Care Code Est Pt Level 4 (60036) Est Pt Prev Care >65y(99966) Diagnoses Encounter for general adult medical examination with abnormal findings Z00. Diabetes 1.5, managed as type 2 E13.9 Hypertension, essential I10 Paroxysmal A-fib I48.0 Lipid disorder E78.9 Anxiety, generalized F41.1 Other osteoporosis, unspecified pathological fracture presence M81.8 Osteoporosis type: other Presence of current pathological fracture: unspecified Elevated ferritin R79.89 Varicose veins of bilateral lower extremities with other complications I83.893 Assessment & Plan Assessment & Plan (1) Encounter for general adult medical examination with abnormal findings: Code(s): Z00.01 - Encounter for general adult medical examination with abnormal findings Category: Medical (2) Diabetes 1.5, managed as type 2: Code(s): E13.9 - Other specified diabetes mellitus without complications Category: Medical (3) Hypertension, essential: Code(s): I10 - Essential (primary) hypertension Category: Medical (4) Paroxysmal A-fib: Comment: follows w/HCS Code(s): I48.0 - Paroxysmal atrial fibrillation Category: Medical (5) Lipid disorder: Code(s): E78.9 - Disorder of lipoprotein metabolism, unspecified Category: Medical (6) Anxiety, generalized: Code(s): F41.1 - Generalized anxiety disorder Category: Medical (7) Osteoporosis: Code(s): M81.0 - Age-related osteoporosis without current pathological fracture Category: Medical Qualifiers: Osteoporosis type: other Presence of current pathological fracture: unspecified Qualified Code(s): M81.8 - Other osteoporosis without current pathological fracture (8) Elevated ferritin: Code(s): R79.89 - Other specified abnormal findings of blood chemistry Category: Medical (9) Varicose veins of bilateral lower extremities with other complications: Code(s): I83.893 - Varicose veins of bilateral lower extremities with other complications Category: Medical Plan History of Present Illness The patient is a 74-year-old female presenting with a physical examination and review of ongoing health issues. Iron Overload: - Iron level recorded at 273 in November. - No supplements reported besides Vitamin D. Atrial Fibrillation: - Previously assessed by cardiology. - Discussed the consideration of defibrillation. Weight Management Issues: - Reports difficulty with weight control and emotional eating, especially before doctor visits. - Participates in supportive group meetings. Anxiety: - Takes escitalopram 20mg for management. - Experiences stress related to medical appointments. Diabetes Mellitus Type 2: - Currently taking glipizide 5 mg BID. - Recent HbA1c of 5.8, indicating tight glucose control. Hypertension: - Blood pressure reading at 116/70. - Currently managed with hydrochlorothiazide and losartan. Asthma stable with inhalers Patient does have a fatty liver as well but liver enzymes are stable.? Will continue to monitor Continue Fosamax for osteoporosis management Surgical History: - History of cataract surgery Health Maintenance - Last mammogram in September of the current year. - Last colonoscopy in 2020, with a follow-up recommended in three years. - Bone density test delayed to this month due to a broken machine. - Reports having received flu, RSV vaccines, and shingles vaccine last year. Medications - Hydrochlorothiazide for hypertension - Losartan for hypertension - Escitalopram 20 mg for anxiety - Glipizide 5 mg BID for Type 2 Diabetes Mellitus - Pravastatin for hyperlipidemia - Xarelto for atrial fibrillation - Vitamin D supplement Patient Instructions - Return for a fasting blood test tomorrow. - Reduce glipizide dosage to one tablet in the morning. - Ensure regular medical check-ups and screening tests as planned. - notify any significant health changes or concerns promptly. - continue medications as prescribed Follow-up 4 months Orders: Orders Lipid Panel Today E13.9 - Other specified diabetes mellitus without complications, E78.9 - Disorder of lipoprotein metabolism, unspecified, F41.1 - Generalized anxiety disorder, I10 - Essential (primary) hypertension, I48.0 - Paroxysmal atrial fibrillation, J45.909 - Unspecified asthma, uncomplicated, M81.8 - Other osteoporosis without current pathological fracture, R79.89 - Other specified abnormal findings of blood chemistry Microalbumin, Random (w Creat) Today E13.9 - Other specified diabetes mellitus without complications, E78.9 - Disorder of lipoprotein metabolism, unspecified, F41.1 - Generalized anxiety disorder, I10 - Essential (primary) hypertension, I48.0 - Paroxysmal atrial fibrillation, J45.909 - Unspecified asthma, uncomplicated, M81.8 - Other osteoporosis without current pathological fracture, R79.89 - Other specified abnormal findings of blood chemistry Ferritin Today E13.9 - Other specified diabetes mellitus without complications, E78.9 - Disorder of lipoprotein metabolism, unspecified, F41.1 - Generalized anxiety disorder, I10 - Essential (primary) hypertension, I48.0 - Paroxysmal atrial fibrillation, J45.909 - Unspecified asthma, uncomplicated, M81.8 - Other osteoporosis without current pathological fracture, R79.89 - Other specified abnormal findings of blood chemistry Hemoglobin A1c 4 Months E13.9 - Other specified diabetes mellitus without complications, I10 - Essential (primary) hypertension, I48.0 - Paroxysmal atrial fibrillation Complete Blood Count Auto Diff 4 Months E13.9 - Other specified diabetes mellitus without complications, I10 - Essential (primary) hypertension, I48.0 - Paroxysmal atrial fibrillation AMB Hemoglobin A1c Today Z13.9 - Encounter for screening, unspecified Complete Blood Count Auto Diff Today E13.9 - Other specified diabetes mellitus without complications, E78.9 - Disorder of lipoprotein metabolism, unspecified, F41.1 - Generalized anxiety disorder, I10 - Essential (primary) hypertension, I48.0 - Paroxysmal atrial fibrillation, J45.909 - Unspecified asthma, uncomplicated, M81.8 - Other osteoporosis without current pathological fracture, R79.89 - Other specified abnormal findings of blood chemistry Comprehensive [place]. Panel Fast Today E13.9 - Other specified diabetes mellitus without complications, E78.9 - Disorder of lipoprotein metabolism, unspecified, F41.1 - Generalized anxiety disorder, I10 - Essential (primary) hypertension, I48.0 - Paroxysmal atrial fibrillation, J45.909 - Unspecified asthma, uncomplicated, M81.8 - Other osteoporosis without current pathological fracture, R79.89 - Other specified abnormal findings of blood chemistry Vitamin D 25-OH (D2 and D3) Today E13.9 - Other specified diabetes mellitus without complications, E78.9 - Disorder of lipoprotein metabolism, unspecified, F41.1 - Generalized anxiety disorder, I10 - Essential (primary) hypertension, I48.0 - Paroxysmal atrial fibrillation, J45.909 - Unspecified asthma, uncomplicated, M81.8 - Other osteoporosis without current pathological fracture, R79.89 - Other specified abnormal findings of blood chemistry TSH reflex Free T4 Today E13.9 - Other specified diabetes mellitus without complications, E78.9 - Disorder of lipoprotein metabolism, unspecified, F41.1 - Generalized anxiety disorder, I10 - Essential (primary) hypertension, I48.0 - Paroxysmal atrial fibrillation, J45.909 - Unspecified asthma, uncomplicated, M81.8 - Other osteoporosis without current pathological fracture, R79.89 - Other specified abnormal findings of blood chemistry Magnesium Today E13.9 - Other specified diabetes mellitus without complications, E78.9 - Disorder of lipoprotein metabolism, unspecified, F41.1 - Generalized anxiety disorder, I10 - Essential (primary) hypertension, I48.0 - Paroxysmal atrial fibrillation, J45.909 - Unspecified asthma, uncomplicated, M81.8 - Other osteoporosis without current pathological fracture, R79.89 - Other specified abnormal findings of blood chemistry Comprehensive Met. Panel 4 Months E13.9 - Other specified diabetes mellitus without complications, I10 - Essential (primary) hypertension, I48.0 - Paroxysmal atrial fibrillation Medications: Changed From glipizide 5 mg PO BID 90 days 180 tabs 0RF To glipizide 5 mg PO ONCE 90 tabs 0RF 90 days
== END 2025-03-21 10:56 | disposition home or self-care (01) ==
LOC: HO.HMCC 10:19
PROVIDERS: PCP Internal Medicine; Visit Provider Internal Medicine
DX: Z00.01 Encounter for general adult medical examination with abnormal findings (principal); I10 Essential (primary) hypertension; I48.0 Paroxysmal atrial fibrillation; E13.9 Other specified diabetes mellitus without complications; E78.9 Disorder of lipoprotein metabolism, unspecified; F41.1 Generalized anxiety disorder; M81.8 Other osteoporosis without current pathological fracture; R79.89 Other specified abnormal findings of blood chemistry; I83.893 Varicose veins of bilateral lower extremities with other complications; Z13.9 Encounter for screening, unspecified

== ENCOUNTER → 2025-03-21 10:18 | Outpatient (BNVA) | payer MEDICARE, SELFPAY | PROVIDERS: PCP Internal Medicine; Visit Provider Internal Medicine | DX: Z00.01 Encounter for general adult medical examination with abnormal findings (principal); E13.9 Other specified diabetes mellitus without complications; I10 Essential (primary) hypertension; I48.0 Paroxysmal atrial fibrillation; E78.9 Disorder of lipoprotein metabolism, unspecified; F41.1 Generalized anxiety disorder; M81.8 Other osteoporosis without current pathological fracture; R79.89 Other specified abnormal findings of blood chemistry; I83.893 Varicose veins of bilateral lower extremities with other complications; Z79.84 Long term (current) use of oral hypoglycemic drugs; Z79.899 Other long term (current) drug therapy | CPT/HCPCS: 83036; 99212; 99397 ==

== ENCOUNTER 2025-04-06 10:47 | Outpatient (REF) | payer MEDICARE, SELFPAY ==
--- NOTE | ~2025-04-06 | MM_ITS ---
STUDY: DUAL ENERGY X-RAY ABSORPTIOMETRY / DXA REASON FOR EXAM: Female, 74 years old M81.8 - Other osteoporosis without current pathological fracture TECHNIQUE: Bone Mineral Density (BMD) measurements of the lumbar spine and left hip were obtained using [employer] COMPARISON: April 21, 2016 FINDINGS: L2-L4 BMD: 0.896 g/cm2 L1-L4 T score: -2.5. This corresponds to osteoporosis. This represents a 4.7* % increase in bone density compared with prior exam from April 21, 2016. Left femoral neck BMD: 0.805 g/cm2 Left femoral neck T score: -1.7. This corresponds to osteopenia. Left total hip BMD: 0.862 g/cm2 Left total hip T score: -1.2. This corresponds to osteopenia. This represents a -1.4 % decrease in bone density compared with prior exam from April 21, 2016. * - Indicates a statistically significant change. MM/XR DEXA axial skeleton IMPRESSION: Osteoporosis Reference Information: The T-score is the number of standard deviations above or below the standard which is normal for young adults at their peak bone mineral density. The World Health Organization (WHO) interprets the T-scores as follows: At or above -1 SD Normal bone density Between -1 and -2.5 SD Osteopenia At or below -2.5 SD Osteoporosis Electronically signed by: Best Mulligan MD 04/06/2025 11:25 AM EDT
== END 2025-04-06 10:48 | disposition home or self-care (01) ==
LOC: HO.MAMMO 10:47
PROVIDERS: PCP Internal Medicine; Visit Provider Internal Medicine
DX: M81.8 Other osteoporosis without current pathological fracture (principal)
CPT/HCPCS: 77080

== ENCOUNTER → 2025-04-06 11:00 | Outpatient (BNV) | payer MEDICARE, SELFPAY | PROVIDERS: PCP Internal Medicine; Visit Provider Radiology Body Imaging | DX: E28.39 Other primary ovarian failure (principal) | CPT/HCPCS: 77080 ==